=== PATIENT | male | born 1990 | race Caucasian/White ===

== ENCOUNTER 2023-10-08 13:45 | Outpatient (OUT) | payer OTHER, SELFPAY ==
[2023-10-08 14:22] LABS: Basophils Absolute Auto 0.1 10^3/uL (0.0-0.1); Basophils Percent Auto 1.3 % (0.2-2.0); Eosinophils Absolute Auto 0.2 10^3/uL (0.0-0.7); Eosinophils Percent Auto 2.7 % (0.9-7.0); Hematocrit 48.4 % (42.0-54.0); Hemoglobin 16.2 g/dL (14.0-18.0); Immature Granulocytes Abs Auto 0.13 10^3/uL (0.00-0.03); Immature Granulocytes Pct Auto 1.7 % (0.0-0.5); Lymphocytes Absolute Auto 2.3 10^3/uL (1.2-3.8); Lymphocytes Percent Auto 29.4 % (20.5-60.0); Mean Corpuscular HGB Conc 33.5 g/dL (29.9-35.2); Mean Corpuscular Hemoglobin 28.7 pg (25.9-34.0); Mean Corpuscular Volume 85.8 fL (80.0-94.0); Mean Platelet Volume 12.3 fL (9.5-13.5); Monocytes Absolute Auto 0.6 10^3/uL (0.3-0.8); Monocytes Percent Auto 8.1 % (1.7-12.0); Neutrophils Absolute Auto 4.4 10^3/uL (1.4-6.5); Neutrophils Percent Auto 56.8 % (43.0-75.0); Platelet Count 146 10^3/uL (150-450); Red Blood Count 5.64 10^6/uL (4.70-6.10); White Blood Count 7.7 10^3/uL (4.0-11.0)
[2023-10-08 14:48] LABS: Estimated Average Glucose 255 mg/dL; Glycohemoglobin A1C 10.5 % (4.5-6.2)
[2023-10-08 14:51] LABS: Anion Gap 11.8; Carbon Dioxide 28.1 mmol/L (21.0-32.0); Chloride 104 mmol/L (98-107); Potassium 3.9 mmol/L (3.5-5.1); Sodium 140 mmol/L (136-145)
[2023-10-08 14:52] LABS: Alanine Aminotransferase 83 U/L (16-63); Albumin Globulin Ratio 1.1; Albumin Level 3.7 g/dL (3.4-5.0); Alkaline Phosphatase 136 U/L (46-116); Aspartate Amino Transferase 21 U/L (15-37); BUN Creatinine Ratio 11.9; Bilirubin Total 0.5 mg/dL (0.2-1.0); Calcium 8.8 mg/dL (8.5-10.1); Cholesterol 148 mg/dL (<=200); Estimated GFR (African America >60 (>=60); Estimated GFR (Non-African Ame >60 (>=60); Globulin 3.5 g/dL; Glucose 283 mg/dL (74-106); HDL Cholesterol 29 mg/dL (40-60); Total Protein 7.2 g/dL (6.4-8.2); Triglycerides 377 mg/dL (<=150); VLDL CHOLESTEROL 75.4 mg/dL
[2023-10-08 14:53] LABS: Chol HDL Ratio 5.1; Thyroid Stimulating Hormone 2.456 uIU/mL (0.358-3.740)
== END 2023-10-08 13:46 | disposition home or self-care (01) ==
LOC: LAB 13:51
PROVIDERS: PCP Family Medicine; Visit Provider Family Medicine
DX: E11.65 Type 2 diabetes mellitus with hyperglycemia (principal)
CPT/HCPCS: 36415; 80053; 80061; 83036; 84443; 85025

== ENCOUNTER 2023-12-27 12:10 | Emergency (ER) | payer OTHER, SELFPAY ==
[2023-12-27 12:17] VITALS: BP 133/92; PULSE 96; TEMP 36.9; O2SAT 97; BMI 32.7
--- NOTE | 2023-12-27 12:35 | XR_ITS ---
The [address] [address] Patient Name: CHARO SHUKLA MRN: [id number] date: 1990 Sex: M Assigned Patient Location: ER Current Patient Location: ED.MAIN Accession/Order Number: [id number] Exam Date: 12/27/2023 12:28 Report Date: 12/27/2023 12:51 At the request of: GILLES MILLAN Procedure: XR hand LT min 3V PROCEDURE: XR hand LT min 3V HISTORY: injury left hand attn. to left ring finger COMPARISON: None. FINDINGS: BONES:No fracture, acute abnormality, or significant arthropathy. SOFT TISSUES:No visible soft tissue swelling. EFFUSION:None visible. OTHER: Negative. XR/XR hand LT min 3V IMPRESSION: 1. No acute bone abnormality. Electronically authenticated by: CHARO JAMES Date: 12/27/2023 12:51
--- NOTE | 2023-12-27 12:45 | ED.UPPEXIN1 ---
HPI HPI - Extremity Injury (Upper) General Chief Complaint: Extremity Injury, Upper Stated Complaint: UPPER EXTREMITY INJURY Time Seen by Provider: 12/27/23 12:45 Source: patient Mode of arrival: walk-in Limitations: no limitations History of Present Illness HPI narrative: Patient here is swelling to the distal phalanx of his left ring finger. He was at home he closed the car door on accidentally. There is no open wound but there is swelling. X-rays were ordered by the nursing staff Related Data Allergies Allergy/AdvReac Type Severity Reaction Status Date / Time amoxicillin [From Augmentin] Allergy Severe Hives Verified 12/27/23 12:16 clavulanic acid Allergy Severe Hives Verified 12/27/23 12:16 [From Augmentin] codeine Allergy Severe Anaphylaxis Verified 12/27/23 12:15 prednisolone [From Prelone] Allergy Severe Hives Verified 12/27/23 12:15 Opioid HPI Opioid Management Most Recent Pain and Opioid Data: No Data to Display Exam Narrative Exam Narrative: Awake alert vital signs are noted. He has no open laceration. There is a small amount of blood underneath the nail but not worthy of trephination. Modest soft tissue swelling is noted. Range of motion is complete there is no rotational deformity. Rest the hand the wrist is normal. Constitutional Vital Signs, click to edit/add: Last Vital Signs Temp 98.5 F 12/27/23 12:17 Pulse 96 H 12/27/23 12:17 Resp 20 12/27/23 12:17 BP 133/92 H 12/27/23 12:17 Pulse Ox 97 12/27/23 12:17 O2 Del Method Room Air 12/27/23 12:17 Course Vital Signs Vital signs: Vital Signs Temperature 98.5 F 12/27/23 12:17 Pulse Rate 96 H 12/27/23 12:17 Respiratory Rate 20 12/27/23 12:17 Blood Pressure 133/92 H 12/27/23 12:17 Pulse Oximetry 97 12/27/23 12:17 Oxygen Delivery Method Room Air 12/27/23 12:17 Temperature 98.5 F 12/27/23 12:17 Pulse Rate 96 H 12/27/23 12:17 Respiratory Rate 20 12/27/23 12:17 Blood Pressure 133/92 H 12/27/23 12:17 Pulse Oximetry 97 12/27/23 12:17 Oxygen Delivery Method Room Air 12/27/23 12:17 MDM - Extremity Injury (Upper) MDM Narrative Medical decision making narrative: X-rays were done by primary review shows no acute fracture. We will place him in a protective splint ice and elevation were advised Discharge Plan Discharge Stand Alone Forms: Portal Instructions Chief Complaint: Extremity Injury, Upper Clinical Impression: Contusion of hand, left Patient Disposition: Home, Self-Care Time of Disposition Decision: 12:47 Print Language: Sammarinese Additional Instructions: Ice/Tylenol/splint Referrals: Suzette Umaña MD [Primary Care Provider] - 1 week
--- OUTSIDE RECORDS SUMMARY | 2023-12-27 12:47 | XMS_ITS | CCD ---
Author Organization [facility] Care Team Providers Care Radio Operator Name Role Phone DR CHRISTINE WHITE Primary Care Unavailable SÁNCHEZ, DR OSCAR Philip Consulting Unavailable SÁNCHEZ, DR OSCAR Philip Admitting Unavailable SÁNCHEZ, DR OSCAR Philip Attending Unavailable TEDDY HATCH Consulting Unavailable CHRISTOPHER, DR CHRISTINE Garcia Primary Care Unavailable BRISA PATINO Admitting Unavailable BRISA PATINO Attending Unavailable BENY .EVIN Consulting UnavailNAT Ta Consulting Unavailable CHRISTOPHER, DR CHRISTINE Garcia Primary Care Unavailable MONTSE HDZ Admitting Unavailable MONTSE HDZ Attending Unavailable Warren Puente Consulting Unavailable TICO .MONTSE Consulting Unavailable Christine White Unavailable Allergies Allergy Classification Reported Allergen(s) Allergy Type Date of Onset Reaction(s) Facility Clavulanate (1 source) Clavulanate Drug Allergy 12-26-19 24 [facility] Opioid Agonists (1 source) Codeine Drug Allergy 12-26-19 24 [facility] Penicillins (antibiotic) (1 source) Amoxicillin Drug Allergy 12-26-19 24 [facility] (6 sources) Amoxicillin / Clavulanate Drug Allergy 01-22-20 [address] [facility] (1 source) cefTRIAXone Drug Allergy 03-29-[address] [facility] (1 source) Codeine Drug Allergy 01-22-20 [address] [facility] (1 source) Isopropyl Alcohol Drug Allergy 01-22-[address] [facility] (1 source) prednisoLONE Drug Allergy 09-18-[address] [facility] (4 sources) Amoxicillin / Clavulanate Drug Allergy Unknown [facility] Other (9 sources) Codeine Drug Allergy Unknown [facility] Other (8 sources) prednisoLONE Drug Allergy Unknown [facility] Other (1 source) Allergies Reconciled Propensity to adverse reactions Unknown [facility] Other (3 sources) Prelone *CORTICOSTEROIDS * Propensity to adverse reactions 10-08-19 24 Unknown, [facility] (1 source) patient allergy list reviewed by nurse or physicia Propensity to adverse reactions 03-11-20 Comment:Done [facility] Other Medications Current Medications Medication Drug Class(es) Dates Sig (Normalized) Sig (Original) 0.25 MG, 0.5 MG Dose 3 ML semaglutide 0.68 MG/ML Pen Injector [Ozempic] (1 source) inject 0.5 mg by subcutaneous injection every week Ozempic (0.25 or 0.5 MG/DOSE) 2 MG/3ML 0.5mg Subcutaneous weekly for 28 days Active Albuterol (1 source) beta2-Adrenergic Agonist Start: 11-27-2023 take 1 puff(s) by inhalation every four to six hours Albuterol Sulfate Active 2 PUFF INHALATION EVERY 4-6 HOURS 6.7 November 27, 2023 12:00am Azithromycin (1 source) Macrolide Antimicrobial Start: 12-26-2023 Azithromycin Active 0 PO .COMPLEX December 26, 2023 12:00am For 250 mg dose pack: take 500 mg today (day 1), then 250 mg for 4 days (days 2-5) PO empagliflozin 10 mg oral tablet (3 sources) Sodium-Glucose Cotransporter 2 Inhibitor Start: 11-19-2023 End: 12-16-2023 take 1 tablet by mouth once daily Empagliflozin (Jardiance) 10 mg tablet Active 0 .ROUTE .COMPLEX December 16, 2023 3:11pm TAKE 1 TABLET BY MOUTH EVERY DAY Start: 10-23-2023 End: 11-19-2023 take 1 tablet by mouth once daily Empagliflozin (Jardiance) 10 mg tablet Discontinued 10 MG PO Daily October 23, 2023 12:00am November 19, 2023 4:35pm Flash Glucose Scanning [place] (Freestyle Batsheva 2 [place]) misc (1 source) Start: 10-09-2023 Flash Glucose Scanning [place] (Freestyle Batsheva 2 [place]) misc Active 0 .Route 1 October 09, 2023 12:00am As directed Flash Glucose Sensor (Freestyle Batsheva 2 Sensor) kit (1 source) Start: 10-09-2023 Flash Glucose Sensor (Freestyle Batsheva 2 Sensor) kit Active 0 .Route 1 October 09, 2023 12:00am As directed FLUoxetine 20 mg oral capsule (4 sources) Serotonin Reuptake Inhibitor take 1 capsule by mouth every twenty-four hours FLUoxetine HCl 20 MG 1 capsule Orally Once a day Active take 1 capsule by mouth once alanna ly FLUoxetine HCl 20 MG 1 capsule Orally Once a day Active glipiZIDE er 10 mg 24 hr extended release oral tablet (12 sources) Sulfonylurea Start: 10-08-2023 End: 12-03-2023 take 10 mg by mouth once daily Glipizide Active 10 MG PO Daily December 03, 2023 9:45am Start: 09-14-2022 take 1 tablet by amisha th every twenty-four hours glipiZIDE XL 5 MG 1 tablet with food Orally Once a day for 30 day(s) Aug, Active take 1 tablet by amisha th once daily at mealtime glipiZIDE ER 10 MG TAKE 1 TABLET BY MOUTH EVERY DAY WITH FOOD for 90 days Active pioglitazone 30 mg oral tablet (4 sources) Peroxisome Proliferator Receptor alpha Agonist, Peroxisome Proliferator Receptor gamma Agonist, Thiazolidinedione Start: 01-14-2023 take 1 tablet by mouth every twenty-four hours Actos 30 MG 1 tablet Orally Once a day for 30 days Dec, Active take 1 tablet by amisha th every twenty-four hours Pioglitazone HCl 45 MG 1 tablet Orally Once a day for 90 days Active Completed/Discontinued Medications Medication Drug Class(es) Dates Sig (Normalized) Sig (Original) lisinopril 10 mg oral tablet (8 sources) Angiotensin Converting Enzyme Inhibitor take 1 tablet by mouth every twenty-four hours Lisinopril 10 MG 1 tablet Orally Once a day Not-Taking metFORMIN hydrochloride 1000 mg oral tablet (8 sources) Biguanide take 1 tablet by mouth every twelve hours metFORMIN HCl 1000 MG 1 tablet with a meal Orally twice a day Not-Taking Semaglutide (2 sources) Start: 10-09-2023 End: 12-26-2023 Semaglutide (Ozempic) 0.25 mg or 0.5 mg (2 mg/3 mL) pen injector Discontinued 0.25 MG SUBCUT every week 3 October 09, 2023 12:00am December 26, 2023 10:42am for 4 weeks Start: 10-08-2023 End: 10-08-2023 inject 0.5 mg by subcutaneous injection every week Semaglutide (Ozempic) 0.25 mg or 0.5 mg (2 mg/3 mL) pen injector Discontinued MG SUBCUT October 08, 2023 12:00am October 08, 2023 1:14pm FreeTextSi.5mg Subcutaneous weekly; Note: Source Status: Start; Refills: 2; Provider: Christopher Garcia tiZANidine 2 mg oral tablet (8 sources) Central alpha-2 Adrenergic Agonist take 1 tablet by mouth every eight hours tiZANidine HCl 2 MG 1 tablet as needed Orally Three times a day Not-Taking 24 hr venlafaxine 75 mg extended release oral capsule (6 sources) Serotonin and Norepinephrine Reuptake Inhibitor Start: 10-08-19 End: 10-08-19 take 1 capsule by mouth once daily at mealtime Venlafaxine Discontinued 1 CAP PO Daily October 08, 2023 12:00am October 08, 2023 1:14pm FreeTextSi capsule with food Orally Once a day; Note: Source Status: Taking; Provider: Christopher Garcia Start: 01-14-2023 take 1 capsule by mo cox monett every twenty-four hours Venlafaxine HCl ER 75 MG 1 capsule with food Orally Once a day for 30 days Dec, Active Problems Active Problems Problem Classification Problem Date Documented Da te Episodic/Chronic Acute bronchitis (10 sources) Acute bronchitis with bronchospasm; Translations: [Acute bronchitis, unspecified] Episodic Asthma (13 sources) Unspecified asthma, uncomplicated; Translations: [Exacerbation of asthma] Onset: 11-03-2014 Chronic Diabetes mellitus with complications (16 sources) Type 2 diabetes mellitus; Translations: [Type 2 diabetes mellitus with hyperglycemia] Chronic Diabetes mellitus without complication (1 source) Hyperglycemia, unspecified; Translations: [HYPERGLYCEMIA UNSPECIFIED] Onset: 09-17-2022 Episodic Esophageal disorders (1 source) Esophageal reflux finding; Translations: [Esophageal reflux] Onset: 03-09-2016 Chronic Essential hypertension (11 sources) Essential (primary) hypertension; Translations: [Essential hypertension] Onset: 09-17-2022 Chronic Headache; including migraine (4 sources) Headache; including migraine; Translations: [HEADACHE UNSPECIFIED] Onset: 09-18-2021 Immunizations and screening for infectious disease (1 source) Vaccination given; Translations: [Encounter for immunization] Episodic Miscellaneous mental health disorders (1 source) Other symptoms and signs involving emotional state Episodic Mood disorders (1 source) Depression; Translations: [Depression, unspecified] Chronic Noninfectious gastroenteritis (1 source) Noninfective gastroenteritis and colitis, unspecified Episodic Nonspecific chest pain (6 sources) Chest pain, unspecified; Translations: [Other chest pain] Onset: 09-13-2022 Episodic Other aftercare (1 source) Other intermediate (current) drug therapy; Translations: [OTH ALF CURRENT DRUG THERAPY] Onset: 09-17-2022 Episodic Other connective tissue disease (10 sources) Pain in left foot; Translations: [Pain in left foot] Episodic Other ear and sense organ disorders (2 sources) Otitis externa; Translations: [Unspecified otitis externa, bilateral] Onset: 02-15-2015 Chronic Other ear and sense organ disorders (11 sources) Impacted cerumen; Translations: [Impacted cerumen, bilateral] Onset: 03-11-2019 Episodic Other gastrointestinal disorders (9 sources) Epigastric fullness; Translations: [Epigastric swelling, mass or lump] Episodic Other gastrointestinal disorders (1 source) Epigastric mass; Translations: [Epigastric swelling, mass or lump] Episodic Other lower respiratory disease (1 source) Chest pain on breathing Episodic Other non-traumatic joint disorders (1 source) Pain in wrist; Translations: [Pain in left wrist] Episodic Other nutritional; endocrine; and metabolic disorders (1 source) Simple obesity ; Translations: [Other obesity due to excess calories] Onset: 10-01-2016 Chronic Other nutritional; endocrine; and metabolic disorders (1 source) Morbid obesity; Translations: [Morbid (severe) obesity due to excess calories] Onset: 10-01-2016 Chronic Other nutritional; endocrine; and metabolic disorders (2 sources) Obese class II; Translations: [Body mass index 35.0-35.9, adult] Onset: 10-01-2016 Chronic Other nutritional; endocrine; and metabolic disorders (1 source) Body mass index 30+ - obesity; Translations: [Body mass index 36.0-36.9, adult] Onset: 10-01-2016 Chronic Other nutritional; endocrine; and metabolic disorders (1 source) Obese class I; Translations: [Body mass index 32.0-32.9, adult] Onset: 10-01-2016 Chronic Spondylosis; intervertebral disc disorders; other back problems (11 sources) Muscle spasm of thoracic back; Translations: [Muscle spasm of back] Onset: 05-12-2015 Episodic Sprains and strains (1 source) Strain of back muscle; Translations: [Sprain of unspecified parts of thorax, initial encounter] Episodic Unclassified (2 sources) COUGH, UNSPECIFIED; Translations: [COUGH, UNSPECIFIED] Onset: 05-14-2022 Viral infection (2 sources) COVID-19; Translations: [Disease caused by 2019-nCoV] Onset: 05-14-2022 Past or Other Problems Problem Classification Problem Date Documented Date Episodic/Chronic Abdominal pain (1 source) Right upper quadrant pain; Translations: [Right upper quadrant pain] Onset: 03-09-2016 Episodic Bacterial infection; unspecified site (1 source) Bacterial infectious disease; Translations: [Bacterial infection, unspecified, in conditions classified elsewhere and of unspecified site] Onset: 03-11-2019 Episodic Conditions associated with dizziness or vertigo (1 source) Dizziness and giddiness; Translations: [Dizziness and giddiness] Onset: 11-21-2015 Episodic Fever of unknown origin (1 source) Fever, unspecified; Translations: [FEVER UNSPECIFIED] Onset: 05-14-2022 Episodic Intracranial injury (1 source) Concussion with less than 1 hour loss of consciousness; Translations: [Concussion with loss of consciousness of 30 minutes or less, initial encounter] Onset: 11-21-2015 Episodic Malaise and fatigue (1 source) Asthenia; Translations: [Weakness] Onset: 02-21-2018 Episodic Other connective tissue disease (1 source) Pain in limb; Translations: [Pain in left finger(s)] Onset: 09-25-2017 Episodic Other connective tissue disease (1 source) Neuralgia; Translations: [Neuralgia and neuritis, unspecified] Onset: 02-21-2018 Episodic Other connective tissue disease (1 source) Achilles bursitis; Translations: [Achilles bursitis or tendinitis] Onset: 03-11-2019 Episodic Other connective tissue disease (1 source) Lateral epicondylitis; Translations: [Lateral epicondylitis of elbow] Onset: 05-12-2015 Episodic Other nervous system disorders (1 source) Tremor; Translations: [Tremor, unspecified] Onset: 02-21-2018 Episodic Other non-traumatic joint disorders (1 source) Arthralgia of the ankle and/or foot; Translations: [Pain in joint, ankle and foot] Onset: 07-07-2015 Episodic Other upper respiratory disease (1 source) Epistaxis; Translations: [EPISTAXIS] Onset: 09-20-2021 Episodic Other upper respiratory infections (1 source) Acute maxillary sinusitis; Translations: [Acute recurrent maxillary sinusitis] Onset: 12-11-2016 Episodic Skin and subcutaneous tissue infections (1 source) Bockhart impetigo; Translations: [Bockhart's impetigo] Onset: 10-01-2016 Episodic Unclassified (1 source) COUGH, UNSPECIFIED; Translations: [COUGH, UNSPECIFIED] Onset: 05-12-2022 Unclassified (1 source) Exposure to hazardous metal; Translations: [Contact with and (suspected) exposure to other hazardous metals] Onset: 11-26-2016 Results Test Name Value Interpretation Reference Range Facility Basophils Auto (Bld) [#/Vol] on 10-08-2023 Basophils (Bld) [#/Vol] 0.1 10 3/uL 0.0-0.1 [facility] Basophils/100 WBC Auto (Bld) on 10-08-2023 Basophils/100 WBC (Bld) 1.3 % 0.2-2.0 [facility] Cholesterol in LDL Calc [Mas s/Vol]on 10-08-2023 Cholesterol in LDL [Mass/Vol] 44.0 mg/dL [facility] Comment on above: <100 mg/dl [id number] 0-129 mg/dl NEAR OR ABOVE [id number] mg/dl BORDERLINE [id number] mg/dl HIGH>190 mg/dl VERY HIGH Cholesterol in VLDL Calc [Ma ss/Vol]on 10-08-2023 Cholesterol in VLDL [Mass/Vol] 75.4 mg/dL [facility] Eosinophils/100 WBC Auto (Bl d)on 10-08-2023 Eosinophils/100 WBC (Bld) 2.7 % 0.9-7.0 [facility] Erythrocyte distribution wid th Auto (RBC) [Ratio]on 10-08-2023 Erythrocyte distribution width (RBC) [Ratio] 12.0 % 11.0-15.0 [facility] Estimated glomerular filtrat ion rate (GFR) non- Americanon 10-08-2023 GFR/1.73 sq M.predicted among non-blacks MDRD (S/P/Bld) [Vol rate/Area] mL/min/{1.73_m2} >=60 [facility] Globulin Calc (S) [Mass/Vol] on 10-08-2023 Globulin (S) [Mass/Vol] 3.5 g/dL [facility] Glucose mean value [Mass/vol ume] in Blood Estimated from glycated hemoglobinon 10-08-2023 Average glucose Estimated from glycated hemoglobin (Bld) [Mass/Vol] 255 mg/dL [facility] Hematocrit Auto (Bld) [Volum e fraction]on 10-08-2023 Hematocrit (Bld) [Volume fraction] 48.4 % 42.0-54.0 [facility] Hemoglobin [Mass/volume] in Bloodon 10-08-2023 Hemoglobin (Bld) [Mass/Vol] 16.2 g/dL 14.0-18.0 [facility] Laboratory - Chemistry and C hemistry - challengeon 10-08-2023 Albumin [Mass/Vol] 3.7 g/dL 3.4-5.0 [facility] ALP [Catalytic activity/Vol] 136 U/L 46-116 [facility] ALT [Catalytic activity/Vol] 83 U/L 16-63 [facility] AST [Catalytic activity/Vol] 21 U/L 15-37 [facility] Bilirubin [Mass/Vol] 0.5 mg/dL 0.2-1.0 [facility] Calcium [Mass/Vol] 8.8 mg/dL 8.5-10.1 [facility] Chloride [Moles/Vol] 104 mmol/L 98-107 [facility] Cholesterol [Mass/Vol] 148 mg/dL <=200 [facility] Cholesterol in HDL [Mass/Vol] 29 mg/dL 40-60 [facility] Comment on above: > or =60 mg/dl - LOW CARDIOVASCULAR RISK<40 mg/dl - HIGH CARDIOVASCULAR RISK CO2 [Moles/Vol] 28.1 mmol/L 21.0-32.0 [facility] Creatinine [Mass/Vol] 0.67 mg/dL 0.70-1.30 [facility] GFR/1.73 sq M.predicted MDRD (S/P/Bld) [Vol rate/Area] mL/min/{1.73_m2} >=60 [facility] Glucose [Mass/Vol] 283 mg/dL 74-106 [facility] Potassium [Moles/Vol] 3.9 mmol/L 3.5-5.1 [facility] Protein [Mass/Vol] 7.2 g/dL 6.4-8.2 [facility] Sodium [Moles/Vol] 140 mmol/L 136-145 [facility] Triglyceride [Mass/Vol] 377 mg/dL <=150 [facility] TSH Qn 2.456 m[IU]/L 0.358-3.740 [facility] Urea nitrogen [Mass/Vol] 8.0 mg/dL 7.0-18.0 [facility] Urea nitrogen/Creatinine [Mass ratio] 11.9 mg/mg [facility] Laboratory - Hematology and Cell countson 10-08-2023 HbA1c (Bld) [Mass fraction] 10.5 % 4.5-6.2 [facility] Comment on above: ADA RECOMMENDED LIMI T 4.0 - 6.0ADA THERAPEUTIC TARGET < 7.0ACTION SUGGESTED> 7.0 Immature granulocytes/100 WBC (Bld) 1.7 % 0.0-0.5 [facility] Leukocytes [#/volume] correc desean for nucleated erythrocytes in Blood by Automated counon 10-08-2023 WBC corrected for nucl RBC Auto (Bld) [#/Vol] 7.7 10 3/uL 4.0-11.0 [facility] Lymphocytes Auto (Bld) [#/Vo l]on 10-08-2023 Lymphocytes (Bld) [#/Vol] 2.3 10 3/uL 1.2-3.8 [facility] Lymphocytes/100 WBC Auto (Bl d)on 10-08-2023 Lymphocytes/100 WBC (Bld) 29.4 % 20.5-60.0 [facility] MCH Auto (RBC) [Entitic mass ]on 10-08-2023 MCH (RBC) [Entitic mass] 28.7 pg 25.9-34.0 [facility] MCHC Auto (RBC) [Mass/Vol]on 10-08-2023 MCHC (RBC) [Mass/Vol] 33.5 g/dL 29.9-35.2 [facility] MCV Auto (RBC) [Entitic vol] on 10-08-2023 MCV (RBC) [Entitic vol] 85.8 fL 80.0-94.0 [facility] Monocytes Auto (Bld) [#/Vol] on 10-08-2023 Monocytes (Bld) [#/Vol] 0.6 10 3/uL 0.3-0.8 [facility] Monocytes/100 WBC Auto (Bld) on 10-08-2023 Monocytes/100 WBC (Bld) 8.1 % 1.7-12.0 [facility] Neutrophils Auto (Bld) [#/Vo l]on 10-08-2023 Neutrophils (Bld) [#/Vol] 4.4 10 3/uL 1.4-6.5 [facility] Neutrophils/100 WBC Auto (Bl d)on 10-08-2023 Neutrophils/100 WBC (Bld) 56.8 % 43.0-75.0 [facility] No Panel Informationon 10-07 Eosinophils # (Auto) 0.2 10 3/uL 0.0-0.7 [facility] Immature Granulocyte # (Auto) 0.13 10 3/uL 0.00-0.03 [facility] Platelet mean volume Auto (B ld) [Entitic vol]on 10-08-2023 Platelet mean volume (Bld) [Entitic vol] 12.3 fL 9.5-13.5 [facility] Platelets Auto (Bld) [#/Vol] on 10-08-2023 Platelets (Bld) [#/Vol] 146 10 3/uL 150-450 [facility] RBC Auto (Bld) [#/Vol]on RBC (Bld) [#/Vol] 5.64 10 6/uL 4.70-6.10 [facility] Serum or plasma albumin/glob ulin mass ratioon 10-08-2023 Albumin/Globulin [Mass ratio] 1.1 {ratio} [facility] Serum or plasma anion gap de terminationon 10-08-2023 Anion gap [Moles/Vol] 11.8 mmol/L [facility] Serum or plasma total choles terol/high density lipoprotein (HDL) cholesterol mass amy 10-08-2023 Cholesterol.total/C holesterol in HDL [Mass ratio] 5.1 {ratio} [facility] Comment on above: 3.3 - 4.4 LOW RISK4. 4 - 7.1 AVERAGE RISK7.1 - 11.0 MODERATE RISK>11.0 HIGH RISK BNPon 09-13-2022 Natriuretic peptide B (Bld) [Mass/Vol] 16.0 pg/mL Normal <=450.[address] [facility] Comment on above: Performed By: #### B COMMODITY ANALYST, CMP, CMADM #### [facility] [address] [place] [address] Dr. Estrella Cazares CARDIAC OSCAR ADMITon 023 CK [Catalytic activity/Vol] 64 U/L Normal 39-308 [facility] Comment on above: Performed By: #### B COMMODITY ANALYST, CMP, CMADM #### [facility] [address] [place] [address] Dr. Estrella Cazares CK.MB [Mass/Vol] ng/mL Normal <=3.60 [facility] Comment on above: Performed By: #### B COMMODITY ANALYST, CMP, CMADM #### [facility] [address] [place] [address] Dr. Estrella Cazares HSTROP <4.0 Normal 4.0-76.1 [facility] Comment on above: Result Comment: CUT- OFF POINTS HAVE BEEN ESTABLISHED BASED ON THE FOURTH UNIVERSAL DEFINITIONS OF MYOCARDIAL INFARCTION. THE UPPER REFERENCE LIMIT (URL) OF TROPONIN, DEFINED THE 99TH PERCENTILE OF cTnI DISTRIBUTION IN A REFERENCE POPULATION, HAS BEEN CONFIRMED THE DECISION THRESHOLD FOR AR DIAGNOSIS. Performed By: #### B COMMODITY ANALYST, CMP, CMADM #### [facility] [address] [place] [address] Dr. Estrella Cazares DAVID 27 ng/mL Normal 16-[address] [facility] Comment on above: Performed By: #### B COMMODITY ANALYST, CMP, CMADM #### [facility] [address] [place] [address] Dr. Estrella Cazares CBC AUTO DIFFon 09-13-2022 BASO # 0.1 103/ul Normal 0.0-0.1 [facility] Comment on above: Performed By: #### P T, PTT #### [facility] [address] [place] [address] Dr. Estrella Cazares Basophils/100 WBC (Bld) 0.6 % Normal 0.2-2.[address] [facility] Comment on above: Performed By: #### P T, PTT #### [facility] [address] [place] [address] Dr. Estrella Cazares EO # 0.1 103/ul Normal 0.0-0.7 [facility] Comment on above: Performed By: #### P T, PTT #### [facility] [address] [place] [address] Dr. Estrella Cazaers Eosinophils/100 WBC (Bld) 1.6 % Normal 0.9-7.[address] [facility] Comment on above: Performed By: #### P T, PTT #### [facility] [address] [place] [address] Dr. Estrella Cazares Erythrocyte distribution width (RBC) [Ratio] 12.0 % Normal 11.0-15.[address] [facility] Comment on above: Performed By: #### P T, PTT #### [facility] [address] [place] [address] Dr. Estrella Cazares Hematocrit (Bld) [Volume fraction] 49.8 % Normal 42.0-54.[address] [facility] Comment on above: Performed By: #### P T, PTT #### [facility] [address] [place] [address] Dr. Estrella Cazares Hemoglobin (Bld) [Mass/Vol] 16.9 g/dL Normal 14.0-18.[address] [facility] Comment on above: Performed By: #### P T, PTT #### [facility] [address] [address] [address] Estrella Cazares IG # 0.05 10e3/ul Critically high 0.00-0.03 [facility] Comment on above: Performed By: #### P T, PTT #### [facility] [address] [place] [address] Dr. Estrella Cazares IG % 0.6 % Critically high 0.0-0.5 [facility] Comment on above: Performed By: #### P T, PTT #### [facility] [address] [place] [address] Dr. Estrella Cazares LYMPH # 2.0 103/ul Normal 1.2-3.8 [facility] Comment on above: Performed By: #### P T, PTT #### [facility] [address] [place] [address] Dr. Estrella Cazares Lymphocytes/100 WBC (Bld) 22.7 % Normal 20.5-60.0 [facility] Comment on above: Performed By: #### P T, PTT #### [facility] [address] [place] [address] Dr. Estrella Cazares MANUAL DIFF REQ NO Normal [facility] Comment on above: Performed By: #### P T, PTT #### [facility] [address] [place] [address] Dr. Estrella Cazares MCH (RBC) [Entitic mass] 28.2 pg Normal 25.9-34.0 [facility] Comment on above: Performed By: #### P T, PTT #### [facility] [address] [place] [address] Dr. Estrella Cazares MCHC (RBC) [Mass/Vol] 33.9 g/dL Normal 29.9-35.2 [facility] Comment on above: Performed By: #### P T, PTT #### [facility] [address] [place] [address] Dr. Estrella Cazares MCV (RBC) [Entitic vol] 83.1 fL Normal 80.0-94.0 [facility] Comment on above: Performed By: #### P T, PTT #### [facility] [address] [place] [address] Dr. Estrella Cazares MONO # 0.6 103/ul Normal 0.3-0.8 [facility] Comment on above: Performed By: #### P T, PTT #### [facility] [address] [place] [address] Dr. Estrella Cazares Monocytes/100 WBC (Bld) 6.7 % Normal 1.7-12.0 [facility] Comment on above: Performed By: #### P T, PTT #### [facility] [address] [place] [address] Dr. Estrella Cazares NEUT # 5.9 103/ul Normal 1.4-6.5 [facility] Comment on above: Performed By: #### P T, PTT #### [facility] [address] [place] [address] Dr. Estrella Cazares Neutrophils/100 WBC (Bld) 67.8 % Normal 43.0-75.0 [facility] Comment on above: Performed By: #### P T, PTT #### [facility] [address] [place] [address] Dr. Estrella Cazares Platelet mean volume (Bld) [Entitic vol] 12.1 fL Normal 9.5-13.5 [facility] Comment on above: Performed By: #### P T, PTT #### [facility] [address] [place] [address] Dr. Estrella Cazares PLT 190 103/ul Normal 150-[address] [facility] Comment on above: Performed By: #### P T, PTT #### [facility] [address] [place] [address] Dr. Estrella Cazares RBC 5.99 106/ul Normal 4.70-6.[address] [facility] Comment on above: Performed By: #### P T, PTT #### [facility] [address] [place] [address] Dr. Estrella Cazares WBC 8.7 103/ul Normal 4.0-11.[address] [facility] Comment on above: Performed By: #### P T, PTT #### [facility] [address] [address] [address] Estrella Cazares D-DIMERon 09-13-2022 D-DIMER 0.19 mg/L FEU Normal <=0.59 [facility] Comment on above: Performed By: #### P T, PTT #### [facility] [address] [place] [address] Dr. Estrella Cazares D-DIMER COMMENTS SEE BELOW Normal [facility] Comment on above: Result Comment: Incr eases in D-Dimer concentration observed with thromboembolic events can be variable due to localization, size, and age of the thrombus. Therefore, a thromboembolic event cannot be diagnosed with certainty on the basis of the reference range. D-Dimers may also be elevated for a variety of disorders including: advanced age, , coronary disease, cancer, liver disease, infection, inflammation, hematoma, DIC, trauma, post-surgery, diabetes, thrombolytic or anticoagulant therapy, stress, and generalized hospitalization. Performed By: #### P T, PTT #### [facility] [address] [place] [address] Dr. Estrella Cazares GLYCOHEMOGLOBIN A1Con 2022 ADA RECOMMENDATION SEE BELOW Normal [facility] Comment on above: Result Comment: ADA RECOMMENDED LIMIT 4.0 - 6.0 ADA THERAPEUTIC TARGET < 7.0 ACTION SUGGESTED > 7.0 Performed By: #### A 1C #### [facility] [address] [place] [address] Dr. Estrella Cazares Glucose [Mass/Vol] 240 mg/dL Normal [facility] Comment on above: Performed By: #### A 1C #### [facility] [address] [place] [address] Dr. Estrella Cazares HbA1c (Bld) [Mass fraction] 10.0 % Critically high 4.5-6.[address] [facility] Comment on above: Performed By: #### A 1C #### [facility] [address] [place] [address] Dr. Estrella Cazares PROF 14(COMP METB)on 023 Albumin [Mass/Vol] 4.0 g/dL Normal 3.4-5.0 [facility] Comment on above: Performed By: #### B COMMODITY ANALYST, CMP, CMADM #### [facility] [address] [address] [address] Estrella Cazares Albumin/Globulin [Mass ratio] 1.4 {ratio} Normal [facility] Comment on above: Performed By: #### B COMMODITY ANALYST, CMP, CMADM #### [facility] [address] [address] [address] Estrella Cazares ALP [Catalytic activity/Vol] 108 U/L Normal 46-116 [facility] Comment on above: Performed By: #### B COMMODITY ANALYST, CMP, CMADM #### [facility] [address] [address] [address] Estrella Cazares ALT [Catalytic activity/Vol] 130 U/L Critically high 16-63 [facility] Comment on above: Performed By: #### B COMMODITY ANALYST, CMP, CMADM #### [facility] [address] [place] [address] Dr. Estrella Cazares Anion gap [Moles/Vol] 12.6 mmol/L Normal [facility] Comment on above: Performed By: #### B COMMODITY ANALYST, CMP, CMADM #### [facility] [address] [place] [address] Dr. Estrella Cazares AST [Catalytic activity/Vol] 57 U/L Critically high 15-37 [facility] Comment on above: Performed By: #### B COMMODITY ANALYST, CMP, CMADM #### [facility] [address] [address] [address] Estrella Cazares Bilirubin [Mass/Vol] 0.6 mg/dL Normal 0.2-1.0 [facility] Comment on above: Performed By: #### B COMMODITY ANALYST, CMP, CMADM #### [facility] [address] [place] [address] Dr. Estrella Cazares Calcium [Mass/Vol] 9.2 mg/dL Normal 8.5-10.1 [facility] Comment on above: Performed By: #### B COMMODITY ANALYST, CMP, CMADM #### [facility] [address] [place] [address] Dr. Estrella Cazares Chloride [Moles/Vol] 103 mmol/L Normal 98-107 [facility] Comment on above: Performed By: #### B COMMODITY ANALYST, CMP, CMADM #### [facility] [address] [address] [address] Estrella Cazares CO2 [Moles/Vol] 27.1 mmol/L Normal 21.0-32.0 [facility] Comment on above: Performed By: #### B COMMODITY ANALYST, CMP, CMADM #### [facility] [address] [address] [address] Estrella Cazares Creatinine [Mass/Vol] 0.64 mg/dL Critically low 0.70-1.30 [facility] Comment on above: Performed By: #### B COMMODITY ANALYST, CMP, CMADM #### [facility] [address] [place] [address] Dr. Estrella Cazares EGFR-AF TAJIK >60 Normal >=60 [facility] Comment on above: Performed By: #### B COMMODITY ANALYST, CMP, CMADM #### [facility] [address] [place] [address] Dr. Estrella Cazares EGFR-NON AF TAJIK >60 Normal >=60 [facility] Comment on above: Performed By: #### B COMMODITY ANALYST, CMP, CMADM #### [facility] [address] [place] [address] Dr. Estrella Cazares Globulin (S) [Mass/Vol] 2.8 g/dL Normal [facility] Comment on above: Performed By: #### B COMMODITY ANALYST, CMP, CMADM #### [facility] [address] [place] [address] Dr. Estrella Cazares Glucose [Mass/Vol] 236 mg/dL Critically high 74-106 [facility] Comment on above: Performed By: #### B COMMODITY ANALYST, CMP, CMADM #### [facility] [address] [place] [address] Dr. Estrella Cazares Potassium [Moles/Vol] 3.7 mmol/L Normal 3.5-5.1 [facility] Comment on above: Performed By: #### B COMMODITY ANALYST, CMP, CMADM #### [facility] [address] [place] [address] Dr. Estrella Cazares Protein [Mass/Vol] 6.8 g/dL Normal 6.4-8.2 [facility] Comment on above: Performed By: #### B COMMODITY ANALYST, CMP, CMADM #### [facility] [address] [place] [address] Dr. Estrella Cazares Sodium [Moles/Vol] 139 mmol/L Normal 136-145 [facility] Comment on above: Performed By: #### B COMMODITY ANALYST, CMP, CMADM #### [facility] [address] [place] [address] Dr. Estrella Cazares Urea nitrogen [Mass/Vol] 6.0 mg/dL Critically low 7.0-18.0 [facility] Comment on above: Performed By: #### B COMMODITY ANALYST, CMP, CMADM #### [facility] [address] [place] [address] Dr. Estrella Cazares Urea nitrogen/Creatinine [Mass ratio] 9.4 mg/mg Normal [facility] Comment on above: Performed By: #### B COMMODITY ANALYST, CMP, CMADM #### [facility] [address] [place] [address] Dr. Estrella Cazares PROTIMEon 09-13-2022 INR Coag (PPP) [Relative time] 1.01 {INR} Normal [facility] Comment on above: Performed By: #### P T, PTT #### [facility] [address] [place] [address] Dr. Estrella Cazares INR GUIDELINES SEE BELOW Normal [facility] Comment on above: Result Comment: VANDA RED INR: 2.0 - 3.0 CONDITIONS NOT LISTED BELOW 2.5 - 3.5 FOR PROSTHETIC HEART VALVE REPLACEMENT 2.5 - 3.5 RECURRENT THROMBOSIS Performed By: #### P T, PTT #### [facility] [address] [place] [address] Dr. Estrella Cazares PT Coag (PPP) [Time] 10.7 s Normal 9.0-11.6 [facility] Comment on above: Performed By: #### P T, PTT #### [facility] [address] [place] [address] Dr. Estrella Cazares PTTon 09-13-2022 aPTT Coag (Bld) [Time] 29.3 s Normal 22.3-36.[address] [facility] Comment on above: Performed By: #### P T, PTT #### [facility] [address] [address] [address] Estrella Cazares TROPONIN, HIGH SENSITIVITYon 09-13-2022 HSTROP <4.0 Normal 4.0-76.[address] [facility] Comment on above: Result Comment: CUT- OFF POINTS HAVE BEEN ESTABLISHED BASED ON THE FOURTH UNIVERSAL DEFINITIONS OF MYOCARDIAL INFARCTION. THE UPPER REFERENCE LIMIT (URL) OF TROPONIN, DEFINED THE 99TH PERCENTILE OF cTnI DISTRIBUTION IN A REFERENCE POPULATION, HAS BEEN CONFIRMED THE DECISION THRESHOLD FOR AR DIAGNOSIS. Performed By: #### P T, PTT #### [facility] [address] [address] [address] Estrella Cazares XR CHEST 1 Von 09-13-2022 XR CHEST 1 V EXAM: Chest x-ray HISTORY: . CHEST PAIN, UNSPECIFIED . COMPARISON: 05/11/2022 TECHNIQUE: Single view of the chest FINDINGS: Heart and vascularity are unremarkable. Lungs are expanded and free of focal infiltrates. EKG leads overlie the chest. IMPRESSION: No acute heart or lung disease identified. Electronically authenticated by: WARREN PUENTE Date: 2022-09-13 17:19 Normal [facility] Covid-19 PCR (CVDTBH)on 04-28 SARS-CoV-2 (COVID-19) RNA ANIVAL+probe Ql (Unsp spec) Detected Critically abnormal NOT DETECTED [facility] Comment on above: Result Comment: This test is not yet approved or cleared by the [place] FDA. When there are no FDA-approved or cleared tests available, and other criteria are met, FDA can make tests available under an emergency access mechanism called an Emergency Use Authorization (EUA). The EUA for this test is supported by the [employer] of Health and Human Service's declaration that circumstances exist to justify the emergency use of in vitro diagnostics for the detection and/or diagnosis of the virus that causes COVID-19. This EUA will remain in effect for the duration of the COVID-19 declaration justifying emergency of IVDs, unless it is terminated or revoked by the FDA (after which the test may no longer be used). Performed By: #### C VDTBH #### [facility] [address] [address] [address] Estrella Cazares XR CHEST 1 Von 05-12-2022 XR CHEST 1 V EXAM: XR CHEST 1 V HISTORY: COUGH COMPARISON: Chest x-ray 02/21/2021 TECHNIQUE: Single frontal view chest x-ray FINDINGS: No lobar consolidation, large pleural effusions, pneumothorax, or acute bony abnormality. Cardiac size is unremarkable. IMPRESSION: No radiographic evidence for acute chest abnormality. Electronically authenticated by: TEDDY HATCH Date: 2022-05-12 00:32 Normal [facility] CT HEAD WO CONon 09-19-2021 CT HEAD WO CON NONCONTRAST CT SCAN OF THE HEAD CT HEAD WO CON HISTORY: HEADACHE TECHNIQUE: Multiple axial images are taken from the level the vertex down to the base of the skull without the use of IV contrast. Images were then reconstructed in the sagittal and coronal planes. This exam was performed according to our departmental dose-optimization program which includes use of Automated Exposure Control, adjustment of the mA and/or kV according to patient size and/or use of iterative reconstruction technique. COMPARISON: 11/21/2015 FINDINGS: Brain Parenchyma: No intracranial mass. No intracranial hemorrhage. Yoon-white matter within expected limits of normal for patient's age. Posterior fossa: Normal. Midline shift: None Extra-axial fluid collection: Extra-axial mass is seen in the region of the left frontal space and measures 6 mm x 6mm. Ventricles: Normal. Mastoid air cells: Normal. Sinuses: Normal. Cranium: No depressed skull fracture. Soft tissues: Normal. Orbits: Normal. IMPRESSION: 1. Probable calcified right frontal meningioma on axial image [address] evidence for acute intracranial pathology. Electronically authenticated by: NAT THOMPSON Date: 2021-09-18 22:02 Normal [facility] CBC AUTO DIFFon 09-18-2021 BASO # 0.1 103/ul Normal 0.0-0.[address] [facility] Comment on above: Performed By: #### P T, PTT #### [facility] [address] [address] [address] Estrella Cazares Basophils/100 WBC (Bld) 1.1 % Normal 0.2-2.0 [facility] Comment on above: Performed By: #### P T, PTT #### [facility] [address] [place] [address] Dr. Estrella Cazares EO # 0.2 103/ul Normal 0.0-0.[address] [facility] Comment on above: Performed By: #### P T, PTT #### [facility] [address] [place] [address] Dr. Estrella Cazares Eosinophils/100 WBC (Bld) 2.1 % Normal 0.9-7.0 [facility] Comment on above: Performed By: #### P T, PTT #### [facility] [address] [place] [address] Dr. Estrella Cazares Erythrocyte distribution width (RBC) [Ratio] 12.1 % Normal 11.0-15.0 [facility] Comment on above: Performed By: #### P T, PTT #### [facility] [address] [place] [address] Dr. Estrella Cazares Hematocrit (Bld) [Volume fraction] 47.2 % Normal 42.0-54.0 [facility] Comment on above: Performed By: #### P T, PTT #### [facility] [address] [place] [address] Dr. Estrella Cazares Hemoglobin (Bld) [Mass/Vol] 15.6 g/dL Normal 14.0-18.0 [facility] Comment on above: Performed By: #### P T, PTT #### [facility] [address] [place] [address] Dr. Estrella Cazares IG # 0.10 10e3/ul Critically high 0.00-0.03 [facility] Comment on above: Performed By: #### P T, PTT #### [facility] [address] [place] [address] Dr. Estrella Cazares IG % 1.2 % Critically high 0.0-0.5 [facility] Comment on above: Performed By: #### P T, PTT #### [facility] [address] [place] [address] Dr. Estrella Cazares LYMPH # 2.7 103/ul Normal 1.2-3.[address] [facility] Comment on above: Performed By: #### P T, PTT #### [facility] [address] [place] [address] Dr. Estrella Cazares Lymphocytes/100 WBC (Bld) 32.0 % Normal 20.5-60.[address] [facility] Comment on above: Performed By: #### P T, PTT #### [facility] [address] [place] [address] Dr. Estrella Cazares MANUAL DIFF REQ NO Normal [facility] Comment on above: Performed By: #### P T, PTT #### [facility] [address] [place] [address] Dr. Estrella Cazares MCH (RBC) [Entitic mass] 28.2 pg Normal 25.9-34.[address] [facility] Comment on above: Performed By: #### P T, PTT #### [facility] [address] [place] [address] Dr. Estrella Cazares MCHC (RBC) [Mass/Vol] 33.1 g/dL Normal 29.9-35.[address] [facility] Comment on above: Performed By: #### P T, PTT #### [facility] [address] [place] [address] Dr. Estrella Cazares MCV (RBC) [Entitic vol] 85.2 fL Normal 80.0-94.[address] [facility] Comment on above: Performed By: #### P T, PTT #### [facility] [address] [place] [address] Dr. Estrella Cazares MONO # 0.6 103/ul Normal 0.3-0.[address] [facility] Comment on above: Performed By: #### P T, PTT #### [facility] [address] [place] [address] Dr. Estrella Cazares Monocytes/100 WBC (Bld) 6.6 % Normal 1.7-12.[address] [facility] Comment on above: Performed By: #### P T, PTT #### [facility] [address] [place] [address] Dr. Estrella Cazares NEUT # 4.8 103/ul Normal 1.4-6.5 [facility] Comment on above: Performed By: #### P T, PTT #### [facility] [address] [place] [address] Dr. Estrella Cazares Neutrophils/100 WBC (Bld) 57.0 % Normal 43.0-75.0 [facility] Comment on above: Performed By: #### P T, PTT #### [facility] [address] [place] [address] Dr. Estrella Cazares Platelet mean volume (Bld) [Entitic vol] 12.3 fL Normal 9.5-13.5 [facility] Comment on above: Performed By: #### P T, PTT #### [facility] [address] [place] [address] Dr. Estrella Cazares PLT 144 103/ul Critically low 150-450 [facility] Comment on above: Performed By: #### P T, PTT #### [facility] [address] [place] [address] Dr. Estrella Cazares RBC 5.54 106/ul Normal 4.70-6.[address] [facility] Comment on above: Performed By: #### P T, PTT #### [facility] [address] [place] [address] Dr. Estrella Cazares WBC 8.4 103/ul Normal 4.0-11.0 [facility] Comment on above: Performed By: #### P T, PTT #### [facility] [address] [place] [address] Dr. Estrella Cazares PROF 14(COMP METB)on 022 Albumin [Mass/Vol] 3.9 g/dL Normal 3.5-5.0 [facility] Comment on above: Performed By: #### C MP #### [facility] [address] [place] [address] Dr. Estrella Cazares Albumin/Globulin [Mass ratio] 1.3 {ratio} Normal [facility] Comment on above: Performed By: #### C MP #### [facility] [address] [address] [address] Estrella Cazares ALP [Catalytic activity/Vol] 139 U/L Critically high 38-126 [facility] Comment on above: Performed By: #### C MP #### [facility] [address] [address] [address] Estrella Cazares ALT [Catalytic activity/Vol] 122 U/L Critically high 21-72 [facility] Comment on above: Performed By: #### C MP #### [facility] [address] [address] [address] Estrella Cazares Anion gap [Moles/Vol] 10.6 mmol/L Normal [facility] Comment on above: Performed By: #### C MP #### [facility] [address] [place] [address] Dr. Estrella Cazares AST [Catalytic activity/Vol] 40 U/L Normal 17-59 [facility] Comment on above: Performed By: #### C MP #### [facility] [address] [place] [address] Dr. Estrella Cazares Bilirubin [Mass/Vol] 0.5 mg/dL Normal 0.2-1.[address] [facility] Comment on above: Performed By: #### C MP #### [facility] [address] [place] [address] Dr. Estrella Cazares Calcium [Mass/Vol] 8.8 mg/dL Normal 8.4-10.2 [facility] Comment on above: Performed By: #### C MP #### [facility] [address] [place] [address] Dr. Estrella Cazares Chloride [Moles/Vol] 103 mmol/L Normal 98-107 [facility] Comment on above: Performed By: #### C MP #### [facility] [address] [place] [address] Dr. Estrella Cazares CO2 [Moles/Vol] 27.1 mmol/L Normal 22.0-30.0 [facility] Comment on above: Performed By: #### C MP #### [facility] [address] [place] [address] Dr. Estrella Cazares Creatinine [Mass/Vol] 0.90 mg/dL Normal 0.66-1.25 [facility] Comment on above: Performed By: #### C MP #### [facility] [address] [place] [address] Dr. Estrella Cazares EGFR-AF TAJIK >60 Normal >=60 [facility] Comment on above: Performed By: #### C MP #### [facility] [address] [address] [address] Estrella Cazares EGFR-NON AF TAJIK >60 Normal >=60 [facility] Comment on above: Performed By: #### C MP #### [facility] [address] [address] [address] Estrella Cazares Globulin (S) [Mass/Vol] 3.1 g/dL Normal [facility] Comment on above: Performed By: #### C MP #### [facility] [address] [place] [address] Dr. Estrella Cazares Glucose [Mass/Vol] 308 mg/dL Critically high 74-106 [facility] Comment on above: Performed By: #### C MP #### [facility] [address] [address] [address] Estrella Cazares Potassium [Moles/Vol] 3.7 mmol/L Normal 3.4-5.0 [facility] Comment on above: Performed By: #### C MP #### [facility] [address] [place] [address] Dr. Estrella Cazares Protein [Mass/Vol] 7.0 g/dL Normal 6.1-8.2 [facility] Comment on above: Performed By: #### C MP #### [facility] [address] [address] [address] Esrtella Cazares Sodium [Moles/Vol] 137 mmol/L Normal 137-145 [facility] Comment on above: Performed By: #### C MP #### [facility] [address] [address] [address] Estrella Cazares Urea nitrogen [Mass/Vol] 11.0 mg/dL Normal 9.0-20.0 [facility] Comment on above: Performed By: #### C MP #### [facility] [address] [place] [address] Dr. Estrella Cazares Urea nitrogen/Creatinine [Mass ratio] 12.2 mg/mg Normal [facility] Comment on above: Performed By: #### C MP #### [facility] [address] [place] [address] Dr. Estrella Cazares PROTIMEon 09-18-2021 INR Coag (PPP) [Relative time] 1.02 {INR} Normal [facility] Comment on above: Performed By: #### P T, PTT #### [facility] [address] [place] [address] Dr. Estrella Cazares INR GUIDELINES SEE BELOW Normal [facility] Comment on above: Result Comment: VANDA RED INR: 2.0 - 3.0 CONDITIONS NOT LISTED BELOW 2.5 - 3.5 FOR PROSTHETIC HEART VALVE REPLACEMENT 2.5 - 3.5 RECURRENT THROMBOSIS Performed By: #### P T, PTT #### [facility] [address] [place] [address] Dr. Estrella Cazares PT Coag (PPP) [Time] 11.0 s Normal 9.0-11.6 [facility] Comment on above: Performed By: #### P T, PTT #### [facility] [address] [place] [address] Dr. Estrella Cazares PTTon 09-18-2021 aPTT Coag (Bld) [Time] 28.1 s Normal 22.3-36.2 [facility] Comment on above: Performed By: #### P T, PTT #### [facility] [address] [place] [address] Dr. Estrella Cazares Bas Metab 2000 Pnl SerPlon 0 11-07-2020 Anion gap [Moles/Vol] 11 mmol/L Normal -18 [facility] Comment on above: Order Comment: Speci men Type: BLOOD SPECIMEN Performed By: #### 2 4321-2 ####[facility]ORYCLIA [id number] [place] [address] Calcium [Mass/Vol] 9.2 mg/dL Normal 8.5-10.2 [facility] Comment on above: Order Comment: Speci men Type: BLOOD SPECIMEN Performed By: #### 2 4321-2 ####[facility]ORYCLIA [id number] [place] [address] Chloride [Moles/Vol] 99 mmol/L Normal 97-105 [facility] Comment on above: Order Comment: Speci men Type: BLOOD SPECIMEN Performed By: #### 2 4321-2 ####[facility]ORYCLIA [id number] [place] [address] CO2 [Moles/Vol] 24 mmol/L Normal 22-30 [facility] Comment on above: Order Comment: Speci men Type: BLOOD SPECIMEN Performed By: #### 2 4321-2 ####[facility]ORYCLIA [id number] [place] [address] Creatinine [Mass/Vol] 0.74 mg/dL Normal 0.73-1.22 [facility] Comment on above: Order Comment: Speci men Type: BLOOD SPECIMEN Performed By: #### 2 4321-2 ####[facility]ORYCLIA [id number] [place] [address] GFR/1.73 sq M.predicted MDRD (S/P/Bld) [Vol rate/Area] mL/min/{1.73_m2} Normal [facility] Comment on above: Order Comment: Speci men Type: BLOOD SPECIMEN Result Comment: >60 eGFR (Estimated GFR) Units of measure: mL/min/1.73 meters squared eGFR is derived from the reexpressed MDRD Study equation using the following parameters: serum creatinine, age, gender and race. The creatinine assay has been calibrated to be traceable to IDMS. An eGFR <60 mL/min/1.73m2 for >3 months is consistent with chronic kidney disease. Refer to KDOQI guidelines for clinical interpretation. In patients with unstable renal function, e.g. those with acute kidney injury, the eGFR may not accurately reflect actual GFR. Performed By: #### 2 4321-2 ####[facility]ATORYCLIA [id number] [place] [address] Glucose [Mass/Vol] 290 mg/dL High 74-99 [facility] Comment on above: Order Comment: Speci men Type: BLOOD SPECIMEN Result Comment: The [place] Diabetes Association (ADA) provides guidance for cutoff values for fasting glucose and random glucose. The ADA defines fasting as no caloric intake for at least 8 hours. Fasting plasma glucose results between 100 to 125 mg/dL indicate increased risk for diabetes (prediabetes). Fasting plasma glucose results greater than or equal to 126 mg/dL meet the criteria for diagnosis of diabetes. In the absence of unequivocal hyperglycemia, results should be confirmed by repeat testing. In a patient with classic symptoms of hyperglycemia or hyperglycemic crisis, random plasma glucose results greater than or equal to 200 mg/dL meet the criteria for diagnosis of diabetes. Reference: Standards of Medical Care in Diabetes 2016, [place] [employer]. Diabetes Care. 2016.39(Suppl 1). Performed By: #### 2 4321-2 ####[facility]ORATORYCLIA [id number] [place] [address] Potassium [Moles/Vol] 4.0 mmol/L Normal 3.7-5.1 [facility] Comment on above: Order Comment: Speci men Type: BLOOD SPECIMEN Performed By: #### 2 4321-2 ####[facility]ATORYCLIA [id number] [place] [address] Sodium [Moles/Vol] 134 mmol/L Low 136-144 [facility] Comment on above: Order Comment: Speci men Type: BLOOD SPECIMEN Performed By: #### 2 4321-2 ####[facility]ATORYCLIA [id number] [place] [address] Urea nitrogen [Mass/Vol] 19 mg/dL Normal 9-24 [facility] Comment on above: Order Comment: Speci men Type: BLOOD SPECIMEN Performed By: #### 2 4321-2 ####[facility]ATORYCLIA [id number] [place] [address] CASE MANAGEMon 11-07-2020 CASE MANAGEM HNO ID: [id number] Author: Mena AvilaRn) SARANYA Palmer Service: Care Management Author Type: Registered Nurse Type: Care Mgt Progress Note Filed: 11/07/2020 3:09 PM Note Text: CARE MANAGEMENT DISCHARGE NOTE SERVICE DATE: 11/07/2020 SERVICE TIME: 3:06 PM LOS: 7 days Admission Date: 10/31/2020 DISCHARGE ARRANGEMENT (list agency and phone number) Discharge Arrangement: Home Provider Name: Christine White CAREGIVER ASSESSMENT: Caregiver is ready, willing and able to meet the patient's needs as recommended by the inter-professional team:: No Caregiver needed Does the patient have an acute stroke diagnosis, or has the patient had a stroke during this admission?: No Patient's transition needs and plan for meeting these needs: home with self care HANDOFF COMMUNICATION: Handoff to: Primary Care Physician Primary Care Physician Name/Phone: summary of care sent to PCP TRANSPORTATION ARRANGEMENTS: Transportation Arrangements: Car (with family) ADDITIONAL CONTACT RESOURCES: n/a Pt dc to home with no TCC needs. SIGNATURE: Mena Palmer RN PATIENT NAME: Charo Shukla DATE: November 07, 2020 TIME: 3:06 PM PAGER/CONTACT #: [phone] [facility] CBC Pnl Bld Autoon Erythrocyte distribution width (RBC) [Ratio] 13.5 % Normal 11.5-15.0 [facility] Comment on above: Order Comment: Speci men Type: BLOOD SPECIMEN Performed By: #### 5 8410-2 ####[facility]ORATORYCLIA [id number] [place] [address] Hematocrit (Bld) [Volume fraction] 52.3 % High 39.0-51.0 [facility] Comment on above: Order Comment: Speci men Type: BLOOD SPECIMEN Performed By: #### 5 8410-2 ####[facility]ORATORYCLIA [id number] [place] [address] Hemoglobin (Bld) [Mass/Vol] 17.0 g/dL Normal 13.0-17.0 [facility] Comment on above: Order Comment: Speci men Type: BLOOD SPECIMEN Performed By: #### 5 8410-2 ####[facility]ATORYCLIA [id number] [place] [address] MCH (RBC) [Entitic mass] 27.9 pg Normal 26.0-34.0 [facility] Comment on above: Order Comment: Speci men Type: BLOOD SPECIMEN Performed By: #### 5 8410-2 ####[facility]ORATORYCLIA [id number] [place] [address] MCHC (RBC) [Mass/Vol] 32.5 g/dL Normal 30.5-36.0 [facility] Comment on above: Order Comment: Speci men Type: BLOOD SPECIMEN Performed By: #### 5 8410-2 ####[facility]ORATORYCLIA [id number] [place] [address] MCV (RBC) [Entitic vol] 85.9 fL Normal 80.0-100.0 [facility] Comment on above: Order Comment: Speci men Type: BLOOD SPECIMEN Performed By: #### 5 8410-2 ####[facility]ATORYCLIA [id number] [place] [address] Nucleated RBC (Bld) [#/Vol] 10*3/uL Normal <0.01 [facility] Comment on above: Order Comment: Speci men Type: BLOOD SPECIMEN Performed By: #### 5 8410-2 ####[facility]ORATORYCLIA [id number] [place] [address] Platelet mean volume (Bld) [Entitic vol] 12.2 fL Normal 9.0-12.7 [facility] Comment on above: Order Comment: Speci men Type: BLOOD SPECIMEN Performed By: #### 5 8410-2 ####[facility]ORATORYCLIA [id number] [place] [address] Platelets (Bld) [#/Vol] 226 10*3/uL Normal 150-400 [facility] Comment on above: Order Comment: Speci men Type: BLOOD SPECIMEN Performed By: #### 5 8410-2 ####[facility]ATORYCLIA [id number] [place] [address] RBC (Bld) [#/Vol] 6.09 10*6/uL High 4.20-6.00 [facility] Comment on above: Order Comment: Speci men Type: BLOOD SPECIMEN Performed By: #### 5 8410-2 ####[facility]ORATORYCLIA [id number] [place] [address] WBC (Bld) [#/Vol] 13.90 10*3/uL High 3.70-11.00 [facility] Comment on above: Order Comment: Speci men Type: BLOOD SPECIMEN Performed By: #### 5 8410-2 ####[facility]ORATORYCLIA [id number] [place] [address] NURSING PROGon 11-07-2020 NURSING PROG HNO ID: [id number] Author: Kellie (Rn) SARANYA Brady Service: Nursing Author Type: Registered Nurse Type: Nursing Progress Note Filed: 11/07/2020 3:59 PM Note Text: Pt ambulated in room on room air. Pulse oxygenation remained above 93% on room air. Dr notified Normal [facility] PROGRESSon 11-07-2020 PROGRESS HNO ID: [id number] Author: Gadiel Douglas MD Service: General Internal Medicine Author Type: Physician Type: Progress Notes Filed: 11/07/2020 10:33 AM Note Text: DEPARTMENT OF HOSPITAL MEDICINE PROGRESS NOTE SERVICE DATE: 11/07/2020 SERVICE TIME: 9:14 AM Hospital Medicine/Primary Attending: Gadiel Douglas MD NIGHT AND WEEKEND COVERAGE: After 7pm please page [phone] SUBJECTIVE: Pt seen and examined. He reports feeling better today. Currently he is on 2 L of oxygen by nasal cannula. Denies any increased cough or shortness of breath. Reports good oral intake. OBJECTIVE: PHYSICAL EXAM: BP 120/78 Pulse 79 Temp (Src) 98.2 (Oral) Resp 20 Ht 5' 8 (1.73m) Wt 229 lb 4.5 oz (104.0kg) SpO2 92% BMI 34.87 kg/(m2). O2 Therapy: Nasal Cannula, Liters: 2 General - AANDOx3, NAD, Calm CV - RRR S1 S2 RESP - CTA B/L ABD - soft, NT, ND +BS EXT - no calf tenderness or edema NEURO - CN II-XII grossly intact, no focal deficits MEDICATIONS: Current Facility-Administered Medications Medication Dose Route Frequency - doxycycline 100 mg in D5W 250 mL Vial-Mate (VIBRAMYCIN) 100 mg INTRAVENOUS q 12 H - dexAMETHasone 6 mg tab(s) (DECADRON) 6 mg ORAL DAILY - aluminum-magnesium hydroxide-simethicone 200-200-20 mg/5 mL 30 mL (MAALOX,MYLANTA,MAG-AL PLUS) 30 mL ORAL DAILY PRN - ondansetron 4 mg tab(s) (ZOFRAN) 4 mg ORAL q 6 H PRN Or - ondansetron (PF) 4 mg injection (ZOFRAN) 4 mg INTRAVENOUS q 6 H PRN - magnesium hydroxide 400 mg/5 mL 30 mL (MOM) 30 mL ORAL DAILY PRN - docusate sodium 100 mg cap(s) (COLACE) 100 mg ORAL BID PRN - bisacodyl 10 mg suppository (DULCOLAX) 10 mg RECTAL DAILY PRN - acetaminophen 650 mg tab(s) (TYLENOL) 650 mg ORAL q 6 H PRN - guaiFENesin 600 mg ER tab(s) (MUCINEX) 600 mg ORAL q 12 H PRN - diphenhydrAMINE 25 mg injection (BENADRYL) 25 mg INTRAVENOUS DAILY - levoFLOXacin iv piggyback 750 mg in D5W 150 mL (LEVAQUIN) 750 mg INTRAVENOUS DAILY - enoxaparin 40 mg injection (LOVENOX) 40 mg SUBCUTANEOUS q 24 HR - albuterol HFA 90 mcg/actuation 2 Puff (PROVENTIL HFA, VENTOLIN HFA) 2 Puff INHALATION QID DATA: Diagnostic tests reviewed for today's visit: CBC: Recent Labs 11/07/20 0506 WBC 13.90* RBC 6.09* HB 17.0 HCT 52.3* PLT 226 MCV 85.9 MCH 27.9 MPV 12.2 BMP: Recent Labs 11/07/20 0506 NA 134* K 4.0 CHLOR 99 CO2 24 BUN 19 CREAT 0.74 GLUC 290* CMP: Recent Labs 11/07/20 0506 NA 134* K 4.0 CHLOR 99 CO2 24 BUN 19 CREAT 0.74 GLUC 290* CA 9.2 ANION 11 Renal Panel: Recent Labs 11/07/20 0506 CREAT 0.74 BUN 19 GLUC 290* CA 9.2 CHLOR 99 K 4.0 CO2 24 NA 134* Estimated Creatinine Clearance: 175.2 mL/min (based on SCr of 0.74 mg/dL). Assessment/Plan 1. Acute hypoxic respiratory failure ?on 2 L of oxygen ?Ambulatory pulse oximetry today ?Continue incentive spirometry ? 2. COVID-19 infection ?Continue dexamethasone, completed remdesevir ?Infectious disease service on board ? 3. Presumed bacterial pneumonia ?Completed course of doxycycline, levofloxacin Medication and Non-Pharmacologic VTE Prophylaxis/Anticoagula nts Anticoagulant AND Antiplatelet Medications (From admission, onward) Comment Start Dose Route Frequency Last Action Ordered Stop 11/01/20 1700 enoxaparin 40 mg injection (LOVENOX) (enoxaparin injection (LOVENOX)) 40 mg SUBCUTANEOUS EVERY 24 HOURS Given, 11/06 1647 11/01/20 1644 -- 11/01/20 1500 activity - mobilize patient (mn,nc) 10/31/20 184 vte pharmacologic prophylaxis contraindicated ([place]) 10/31/20 1845 graduated compression stockings ([place]) Lines, Drains, and Airways Line Peripheral 11/05/20 Assessment Left Forearm 20 Gauge 2 days VTE Prophylaxis: Lovenox 40mg Sub Q Daily Disposition: Home Plan of care discussed with: Patient SIGNATURE: Gadiel Douglas MD PATIENT NAME: Charo Shukla DATE: November 07, 2020 TIME: 9:14 AM PAGER/CONTACT #: Team color pager Disclaimer: Portions of this note may have been generated using [employer] voice recognition software. Reasonable efforts were made to correct any dictation errors that resulted due to the programming of this software but some may still be present. Please note, the time of this note does not reflect the time I saw this patient today, but the time of this documentation. Normal [facility] NURSING PROGon 11-06-2020 NURSING PROG HNO ID: [id number] Author: Nahid AvilaRn) SARANYA Baires Service: Nursing Author Type: Registered Nurse Type: Nursing Progress Note Filed: 11/06/2020 9:46 PM Note Text: Spoke with pts dad via phone and he is asking that the attending physician call him for an updating in the morning. Will pass along to day shift RN. Normal [facility] NURSING PROG HNO ID: [id number] Author: Nicole AvilaRn) SARANYA De Leon Service: Nursing Author Type: Registered Nurse Type: Nursing Progress Note Filed: 11/06/2020 2:59 PM Note Text: Nursing Progress Note Patient Name: Charo Suhkla Patient Location: [id number] Attempted blood draw x2- unable to obtain D-dimer and ferritin. Normal [facility] PROGRESSon 11-06-2020 PROGRESS HNO ID: [id number] Author: Gadiel Douglas MD Service: General Internal Medicine Author Type: Physician Type: Progress Notes Filed: 11/06/2020 11:39 AM Note Text: DEPARTMENT OF HOSPITAL MEDICINE PROGRESS NOTE SERVICE DATE: 11/06/2020 SERVICE TIME: 11:34 AM Hospital Medicine/Primary Attending: Gadiel Douglas MD NIGHT AND WEEKEND COVERAGE: After 7pm please page [phone] SUBJECTIVE: Pt seen and examined. Has been weaned to 3 L today. No acute issues overnight. OBJECTIVE: PHYSICAL EXAM: BP 108/72 Pulse 65 Temp (Src) 97.5 (Temporal) Resp 18 Ht 5' 8 (1.73m) Wt 229 lb 4.5 oz (104.0kg) SpO2 94% BMI 34.87 kg/(m2). O2 Therapy: Nasal Cannula, Liters: 3 General - AANDOx3, NAD, Calm CV - RRR S1 S2 RESP - CTA B/L ABD - soft, NT, ND +BS EXT - no edema NEURO - CN II-XII grossly intact, no focal deficits MEDICATIONS: Current Facility-Administered Medications Medication Dose Route Frequency - doxycycline 100 mg in D5W 250 mL Vial-Mate (VIBRAMYCIN) 100 mg INTRAVENOUS q 12 H - dexAMETHasone 6 mg tab(s) (DECADRON) 6 mg ORAL DAILY - aluminum-magnesium hydroxide-simethicone 200-200-20 mg/5 mL 30 mL (MAALOX,MYLANTA,MAG-AL PLUS) 30 mL ORAL DAILY PRN - ondansetron 4 mg tab(s) (ZOFRAN) 4 mg ORAL q 6 H PRN Or - ondansetron (PF) 4 mg injection (ZOFRAN) 4 mg INTRAVENOUS q 6 H PRN - magnesium hydroxide 400 mg/5 mL 30 mL (MOM) 30 mL ORAL DAILY PRN - docusate sodium 100 mg cap(s) (COLACE) 100 mg ORAL BID PRN - bisacodyl 10 mg suppository (DULCOLAX) 10 mg RECTAL DAILY PRN - acetaminophen 650 mg tab(s) (TYLENOL) 650 mg ORAL q 6 H PRN - guaiFENesin 600 mg ER tab(s) (MUCINEX) 600 mg ORAL q 12 H PRN - diphenhydrAMINE 25 mg injection (BENADRYL) 25 mg INTRAVENOUS DAILY - levoFLOXacin iv piggyback 750 mg in D5W 150 mL (LEVAQUIN) 750 mg INTRAVENOUS DAILY - enoxaparin 40 mg injection (LOVENOX) 40 mg SUBCUTANEOUS q 24 HR - albuterol HFA 90 mcg/actuation 2 Puff (PROVENTIL HFA, VENTOLIN HFA) 2 Puff INHALATION QID Estimated Creatinine Clearance: 202.6 mL/min (A) (based on SCr of 0.64 mg/dL (L)). Assessment/Plan 1. Acute hypoxic respiratory failure ?on 3L of oxygen ?Continue supplemental oxygen, wean as tolerated ?Continue incentive spirometry ? 2. COVID-19 infection ?Continue dexamethasone, completed remdesevir ?Infectious disease service on board ? 3. Presumed bacterial pneumonia ?Continue doxycycline, levofloxacin ? Medication and Non-Pharmacologic VTE Prophylaxis/Anticoagula nts Anticoagulant AND Antiplatelet Medications (From admission, onward) Comment Start Dose Route Frequency Last Action Ordered Stop 11/01/20 1700 enoxaparin 40 mg injection (LOVENOX) (enoxaparin injection (LOVENOX)) 40 mg SUBCUTANEOUS EVERY 24 HOURS Given, 11/05 1702 11/01/20 1644 -- 11/01/20 1500 activity - mobilize patient ([place]) 10/31/20 1845 vte pharmacologic prophylaxis contraindicated (mn,nc) 10/31/20 1845 graduated compression stockings ([place]) Lines, Drains, and Airways Line Peripheral 11/05/20 Assessment Left Forearm 20 Gauge 1 day VTE Prophylaxis: Lovenox Disposition: Home Plan of care discussed with: Patient SIGNATURE: Gadiel Douglas MD PATIENT NAME: Charo Shukla DATE: November 06, 2020 TIME: 11:34 AM PAGER/CONTACT #: Alana diaz pager Disclaimer: Portions of this note may have been generated using [employer] voice recognition software. Reasonable efforts were made to correct any dictation errors that resulted due to the programming of this software but some may still be present. Please note, the time of this note does not reflect the time I saw this patient today, but the time of this documentation. Normal [facility] CRP SerPl-ncon 11-05-2020 CRP [Mass/Vol] 0.7 mg/dL Normal <0.9 [facility] Comment on above: Order Comment: Speci men Type: BLOOD SPECIMEN Performed By: #### 5 7021-8 #### [facility] CLIA [id number] [address] [place] [address] D dimer FEU PPP-ncon 11-05 Fibrin D-dimer FEU (PPP) [Mass/Vol] 280 ng/mL FEU Normal <500 [facility] Comment on above: Order Comment: Speci men Type: BLOOD SPECIMEN Performed By: #### 4 8065-7 ####[facility] [id number] [place] [address] FERRITIN BLDon 11-05-2020 Ferritin [Mass/Vol] 648.9 ng/mL High 30.3-565.7 [facility] Comment on above: Order Comment: Speci men Type: BLOOD SPECIMEN Performed By: #### 5 7021-8 #### [facility] CLIA [id number] [address] [place] [address] HEPATIC FUNCTION PNLon 11-05 Albumin [Mass/Vol] 3.3 g/dL Low 3.9-4.9 [facility] Comment on above: Order Comment: Speci men Type: BLOOD SPECIMEN Performed By: #### 5 7021-8 #### [facility] CLIA [id number] [address] [place] [address] ALP [Catalytic activity/Vol] 83 U/L Normal 38-113 [facility] Comment on above: Order Comment: Speci men Type: BLOOD SPECIMEN Performed By: #### 5 7021-8 #### [facility] CLIA [id number] [address] [place] [address] ALT With P-5'-P [Catalytic activity/Vol] 65 U/L High 10-54 [facility] Comment on above: Order Comment: Speci men Type: BLOOD SPECIMEN Performed By: #### 5 7021-8 #### [facility] CLIA [id number] [address] [place] [address] AST With P-5'-P [Catalytic activity/Vol] 55 U/L High 14-40 [facility] Comment on above: Order Comment: Speci men Type: BLOOD SPECIMEN Performed By: #### 5 7021-8 #### [facility] CLIA [id number] [address] [place] [address] Bilirubin [Mass/Vol] 0.5 mg/dL Normal 0.2-1.3 [facility] Comment on above: Order Comment: Speci men Type: BLOOD SPECIMEN Performed By: #### 5 7021-8 #### [facility] CLIA [id number] [address] [place] [address] Bilirubin.conjugate d [Mass/Vol] mg/dL Normal <0.2 [facility] Comment on above: Order Comment: Speci men Type: BLOOD SPECIMEN Performed By: #### 5 7021-8 #### [facility] CLIA [id number] [address] [place] [address] Protein [Mass/Vol] 5.6 g/dL Low 6.3-8.0 [facility] Comment on above: Order Comment: Speci men Type: BLOOD SPECIMEN Performed By: #### 5 7021-8 #### [facility] CLIA [id number] [address] [place] [address] PROGRESSon 11-05-2020 PROGRESS HNO ID: [id number] Author: Gadiel Douglas MD Service: General Internal Medicine Author Type: Physician Type: Progress Notes Filed: 11/05/2020 2:36 PM Note Text: DEPARTMENT OF HOSPITAL MEDICINE PROGRESS NOTE SERVICE DATE: 11/05/2020 SERVICE TIME: 2:34 PM Hospital Medicine/Primary Attending: Gadiel Douglas MD NIGHT AND WEEKEND COVERAGE: After 7pm please page [phone] SUBJECTIVE: Pt seen and examined. Remains on 6 L of oxygen. Reports increased shortness of breath on ambulation. Finished course of remdesivir yesterday. OBJECTIVE: PHYSICAL EXAM: BP 113/71 Pulse 77 Temp (Src) 98.1 (Oral) Resp 18 Ht 5' 8 (1.73m) Wt 229 lb 4.5 oz (104.0kg) SpO2 94% BMI 34.87 kg/(m2). O2 Therapy: Nasal Cannula, Liters: 6 General - AANDOx3, NAD, Calm CV - RRR S1 S2, No M/R/G RESP - CTA B/L ABD - soft, NT, ND +BS EXT - no edema NEURO - CN II-XII grossly intact, no focal deficits MEDICATIONS: Current Facility-Administered Medications Medication Dose Route Frequency - doxycycline 100 mg in D5W 250 mL Vial-Mate (VIBRAMYCIN) 100 mg INTRAVENOUS q 12 H - dexAMETHasone 6 mg tab(s) (DECADRON) 6 mg ORAL DAILY - aluminum-magnesium hydroxide-simethicone 200-200-20 mg/5 mL 30 mL (MAALOX,MYLANTA,MAG-AL PLUS) 30 mL ORAL DAILY PRN - ondansetron 4 mg tab(s) (ZOFRAN) 4 mg ORAL q 6 H PRN Or - ondansetron (PF) 4 mg injection (ZOFRAN) 4 mg INTRAVENOUS q 6 H PRN - magnesium hydroxide 400 mg/5 mL 30 mL (MOM) 30 mL ORAL DAILY PRN - docusate sodium 100 mg cap(s) (COLACE) 100 mg ORAL BID PRN - bisacodyl 10 mg suppository (DULCOLAX) 10 mg RECTAL DAILY PRN - acetaminophen 650 mg tab(s) (TYLENOL) 650 mg ORAL q 6 H PRN - guaiFENesin 600 mg ER tab(s) (MUCINEX) 600 mg ORAL q 12 H PRN - diphenhydrAMINE 25 mg injection (BENADRYL) 25 mg INTRAVENOUS DAILY - levoFLOXacin iv piggyback 750 mg in D5W 150 mL (LEVAQUIN) 750 mg INTRAVENOUS DAILY - enoxaparin 40 mg injection (LOVENOX) 40 mg SUBCUTANEOUS q 24 HR - albuterol HFA 90 mcg/actuation 2 Puff (PROVENTIL HFA, VENTOLIN HFA) 2 Puff INHALATION QID DATA: Diagnostic tests reviewed for today's visit: CMP: Recent Labs 11/05/20419 TPROT 5.6* TBILI 0.5 ALKPHOS 83 ALT 65* AST 55* Liver Function, Amylase, Lipase: Recent Labs 11/05/20419 TPROT 5.6* ALB 3.3* ALT 65* AST 55* ALKPHOS 83 TBILI 0.5 Heme: Recent Labs 11/05/20419 ZOYA 648.9* Estimated Creatinine Clearance: 202.6 mL/min (A) (based on SCr of 0.64 mg/dL (L)). Assessment/Plan 1. Acute hypoxic respiratory failure ?Continue supplemental oxygen ?Continues to be on 6 L of oxygen ?Wean as tolerated ?Encouraged incentive spirometry 2. COVID-19 infection ?Continue remdesivir, dexamethasone ?Infectious disease service on board ?CRP has normalized today 3. Presumed bacterial pneumonia ?Continue doxycycline, levofloxacin Medication and Non-Pharmacologic VTE Prophylaxis/Anticoagula nts Anticoagulant AND Antiplatelet Medications (From admission, onward) Comment Start Dose Route Frequency Last Action Ordered Stop 11/01/20 1700 enoxaparin 40 mg injection (LOVENOX) (enoxaparin injection (LOVENOX)) 40 mg SUBCUTANEOUS EVERY 24 HOURS Given, 11/04 1641 11/01/20 1644 -- 11/01/20 1500 activity - mobilize patient ([place]) 10/31/20 1845 vte pharmacologic prophylaxis contraindicated ([place]) 10/31/20 1845 graduated compression stockings ([place]) Lines, Drains, and Airways Line Peripheral 11/05/20 Assessment Left Forearm 20 Gauge <1 day VTE Prophylaxis: Lovenox 40mg Sub Q Daily Disposition: Home Plan of care discussed with: Patient SIGNATURE: Gadiel Douglas MD PATIENT NAME: Charo Shukla DATE: November 05, 2020 TIME: 2:34 PM PAGER/CONTACT #: Team color pager Disclaimer: Portions of this note may have been generated using [employer] voice recognition software. Reasonable efforts were made to correct any dictation errors that resulted due to the programming of this software but some may still be present. Please note, the time of this note does not reflect the time I saw this patient today, but the time of this documentation. Normal [facility] CBC Pnl Bld Autoon 1 Erythrocyte distribution width (RBC) [Ratio] 13.0 % Normal 11.5-15.0 [facility] Comment on above: Order Comment: Speci men Type: BLOOD SPECIMEN Performed By: #### 5 7021-8 #### [facility] CLIA [id number] [address] [place] [address] Hematocrit (Bld) [Volume fraction] 42.5 % Normal 39.0-51.0 [facility] Comment on above: Order Comment: Speci men Type: BLOOD SPECIMEN Performed By: #### 5 7021-8 #### [facility] CLIA [id number] [address] [place] [address] Hemoglobin (Bld) [Mass/Vol] 14.1 g/dL Normal 13.0-17.0 [facility] Comment on above: Order Comment: Speci men Type: BLOOD SPECIMEN Performed By: #### 5 7021-8 #### [facility] CLIA [id number] [address] [place] [address] MCH (RBC) [Entitic mass] 27.8 pg Normal 26.0-34.0 [facility] Comment on above: Order Comment: Speci men Type: BLOOD SPECIMEN Performed By: #### 5 7021-8 #### [facility] CLIA [id number] [address] [place] [address] MCHC (RBC) [Mass/Vol] 33.2 g/dL Normal 30.5-36.0 [facility] Comment on above: Order Comment: Speci men Type: BLOOD SPECIMEN Performed By: #### 5 7021-8 #### [facility] CLIA [id number] [address] [place] [address] MCV (RBC) [Entitic vol] 83.7 fL Normal 80.0-100.0 [facility] Comment on above: Order Comment: Speci men Type: BLOOD SPECIMEN Performed By: #### 5 7021-8 #### [facility] CLIA [id number] [address] [place] [address] Nucleated RBC (Bld) [#/Vol] 10*3/uL Normal <0.01 [facility] Comment on above: Order Comment: Speci men Type: BLOOD SPECIMEN Performed By: #### 5 7021-8 #### [facility] CLIA [id number] [address] [place] [address] Platelet mean volume (Bld) [Entitic vol] 11.9 fL Normal 9.0-12.7 [facility] Comment on above: Order Comment: Speci men Type: BLOOD SPECIMEN Performed By: #### 5 7021-8 #### [facility] CLIA [id number] [address] [place] [address] Platelets (Bld) [#/Vol] 205 10*3/uL Normal 150-400 [facility] Comment on above: Order Comment: Speci men Type: BLOOD SPECIMEN Performed By: #### 5 7021-8 #### [facility] CLIA [id number] [address] [place] [address] RBC (Bld) [#/Vol] 5.08 10*6/uL Normal 4.20-6.00 [facility] Comment on above: Order Comment: Speci men Type: BLOOD SPECIMEN Performed By: #### 5 7021-8 #### [facility] CLIA [id number] [address] [place] [address] WBC (Bld) [#/Vol] 9.37 10*3/uL Normal 3.70-11.00 [facility] Comment on above: Order Comment: Speci men Type: BLOOD SPECIMEN Performed By: #### 5 7021-8 #### [facility] CLIA [id number] [address] [place] [address] Comp Metab 2000 Pnl SerPlon 11-04-2020 Albumin [Mass/Vol] 3.3 g/dL Low 3.9-4.9 [facility] Comment on above: Order Comment: Speci men Type: BLOOD SPECIMEN Performed By: #### 2 4323-8 #### [facility] CLIA [id number] [address] [place] [address] ALP [Catalytic activity/Vol] 76 U/L Normal 38-113 [facility] Comment on above: Order Comment: Speci men Type: BLOOD SPECIMEN Performed By: #### 2 4323-8 #### [facility] CLIA [id number] [address] [place] [address] ALT With P-5'-P [Catalytic activity/Vol] 52 U/L Normal 10-54 [facility] Comment on above: Order Comment: Speci men Type: BLOOD SPECIMEN Performed By: #### 2 4323-8 #### [facility] CLIA [id number] [address] [place] [address] Anion gap [Moles/Vol] 10 mmol/L Normal 9-18 [facility] Comment on above: Order Comment: Speci men Type: BLOOD SPECIMEN Performed By: #### 2 4323-8 #### [facility] CLIA [id number] [address] [place] [address] AST With P-5'-P [Catalytic activity/Vol] 61 U/L High 14-40 [facility] Comment on above: Order Comment: Speci men Type: BLOOD SPECIMEN Performed By: #### 2 4323-8 #### [facility] CLIA [id number] [address] [place] [address] Bilirubin [Mass/Vol] 0.4 mg/dL Normal 0.2-1.3 [facility] Comment on above: Order Comment: Speci men Type: BLOOD SPECIMEN Performed By: #### 2 4323-8 #### [facility] CLIA [id number] [address] [place] [address] Calcium [Mass/Vol] 8.5 mg/dL Normal 8.5-10.2 [facility] Comment on above: Order Comment: Speci men Type: BLOOD SPECIMEN Performed By: #### 2 4323-8 #### [facility] CLIA [id number] [address] [place] [address] Chloride [Moles/Vol] 106 mmol/L High 97-105 [facility] Comment on above: Order Comment: Speci men Type: BLOOD SPECIMEN Performed By: #### 2 4323-8 #### [facility] CLIA [id number] [address] [place] [address] CO2 [Moles/Vol] 22 mmol/L Normal 22-30 [facility] Comment on above: Order Comment: Speci men Type: BLOOD SPECIMEN Performed By: #### 2 4323-8 #### [facility] CLIA [id number] [address] [place] [address] Creatinine [Mass/Vol] 0.64 mg/dL Low 0.73-1.22 [facility] Comment on above: Order Comment: Speci men Type: BLOOD SPECIMEN Performed By: #### 2 4323-8 #### [facility] CLIA [id number] [address] [place] [address] GFR/1.73 sq M.predicted MDRD (S/P/Bld) [Vol rate/Area] mL/min/{1.73_m2} Normal [facility] Comment on above: Order Comment: Speci men Type: BLOOD SPECIMEN Result Comment: >60 eGFR (Estimated GFR) Units of measure: mL/min/1.73 meters squared eGFR is derived from the reexpressed MDRD Study equation using the following parameters: serum creatinine, age, gender and race. The creatinine assay has been calibrated to be traceable to IDMS. An eGFR <60 mL/min/1.73m2 for >3 months is consistent with chronic kidney disease. Refer to KDOQI guidelines for clinical interpretation. In patients with unstable renal function, e.g. those with acute kidney injury, the eGFR may not accurately reflect actual GFR. Performed By: #### 2 4323-8 #### [facility] CLIA [id number] [address] [place] [address] Glucose [Mass/Vol] 206 mg/dL High 74-99 [facility] Comment on above: Order Comment: Speci men Type: BLOOD SPECIMEN Result Comment: The [place] [employer] (ADA) provides guidance for cutoff values for fasting glucose and random glucose. The ADA defines fasting as no caloric intake for at least 8 hours. Fasting plasma glucose results between 100 to 125 mg/dL indicate increased risk for diabetes (prediabetes). Fasting plasma glucose results greater than or equal to 126 mg/dL meet the criteria for diagnosis of diabetes. In the absence of unequivocal hyperglycemia, results should be confirmed by repeat testing. In a patient with classic symptoms of hyperglycemia or hyperglycemic crisis, random plasma glucose results greater than or equal to 200 mg/dL meet the criteria for diagnosis of diabetes. Reference: Standards of Medical Care in Diabetes 2016, [place] [employer]. Diabetes Care. 2016.39(Suppl 1). Performed By: #### 2 4323-8 #### [facility] CLIA [id number] [address] [place] [address] Potassium [Moles/Vol] 4.2 mmol/L Normal 3.7-5.1 [facility] Comment on above: Order Comment: Speci men Type: BLOOD SPECIMEN Performed By: #### 2 4323-8 #### [facility] CLIA [id number] [address] [place] [address] Protein [Mass/Vol] 5.7 g/dL Low 6.3-8.0 [facility] Comment on above: Order Comment: Speci men Type: BLOOD SPECIMEN Performed By: #### 2 4323-8 #### [facility] CLIA [id number] [address] [place] [address] Sodium [Moles/Vol] 138 mmol/L Normal 136-144 [facility] Comment on above: Order Comment: Speci men Type: BLOOD SPECIMEN Performed By: #### 2 4323-8 #### [facility] CLIA [id number] [address] [place] [address] Urea nitrogen [Mass/Vol] 13 mg/dL Normal 9-24 [facility] Comment on above: Order Comment: Speci men Type: BLOOD SPECIMEN Performed By: #### 2 4323-8 #### [facility] CLIA [id number] [address] [place] [address] NURSING PROGon 11-04-2020 NURSING PROG HNO ID: [id number] Author: Brittany AvilaRn) SARANYA Marte Service: Nursing Author Type: Registered Nurse Type: Nursing Progress Note Filed: 11/04/2020 6:59 PM Note Text: Nursing Progress Note Patient Name: Charo Shukla Patient Location: [id number]/[id number] Daily Note:Attempted to place IV and draw blood x 2 without success. This note was completed by: Brittany Marte RN Normal [facility] PLAN OF CAREon 11-04-2020 PLAN OF CARE HNO ID: [id number] Author: Warren Melo Service: Infectious Disease Author Type: Physician Type: Plan of Care Filed: 11/04/2020 5:59 PM Note Text: ID Day 5 and last day of remdesivir. Afebrile. On dexamethasone. Apparently improving each day although still on 6 L nasal cannula Dose #4 levofloxacin and day 4.5 doxycycline Remdesivir will stop. I would give 7 doses of levofloxacin whether here or home. I would give doxycycline through November 07 AM dose When ready for discharge no ID follow-up needed Warren Melo MD 11/04/2020 5:[phone] [facility] PROCALCITONIN (LAB)on 2020 Procalcitonin [Mass/Vol] 0.11 ng/mL High <0.09 [facility] Comment on above: Order Comment: Speci men Type: BLOOD SPECIMEN Result Comment: For a guided interpretation of test results, please visit the Change in Procalcitonin Calculator, [email or web address]. Performed By: #### 5 7021-8 #### [facility] CLIA [id number] [address] [place] [address] PROGRESSon 11-04-2020 PROGRESS HNO ID: [id number] Author: Gadiel Douglas MD Service: General Internal Medicine Author Type: Physician Type: Progress Notes Filed: 11/04/2020 2:11 PM Note Text: DEPARTMENT OF HOSPITAL MEDICINE PROGRESS NOTE SERVICE DATE: 11/04/2020 SERVICE TIME: 12:13 PM Hospital Medicine/Primary Attending: Gadiel Douglas MD NIGHT AND WEEKEND COVERAGE: After 7pm please page [phone] CHIEF COMPLAINT: Shortness of breath SUBJECTIVE: Pt seen and examined. Short of breath on ambulation. Denies any increased cough. No fever or chills overnight. OBJECTIVE: PHYSICAL EXAM: BP 121/77 Pulse 76 Temp (Src) 97.9 (Temporal) Resp 20 Ht 5' 8 (1.73m) Wt 229 lb 4.5 oz (104.0kg) SpO2 95% BMI 34.87 kg/(m2). O2 Therapy: Nasal Cannula-Humidified (7-15 LPM), Liters: 6 General - AANDOx3, NAD, Calm CV - RRR S1 S2, No M/R/G RESP - CTA B/L ABD - soft, NT, ND +BS EXT - no edema NEURO - CN II-XII grossly intact, no focal deficits MEDICATIONS: Current Facility-Administered Medications Medication Dose Route Frequency - doxycycline 100 mg in D5W 250 mL Vial-Mate (VIBRAMYCIN) 100 mg INTRAVENOUS q 12 H - remdesivir 100 mg in NaCl 0.9% 250 mL 100 mg INTRAVENOUS q 24 HR And - sodium chloride 0.9 % (flush) 30 mL (BD POSIFLUSH) 30 mL INTRAVENOUS q 24 HR - dexAMETHasone 6 mg tab(s) (DECADRON) 6 mg ORAL DAILY - aluminum-magnesium hydroxide-simethicone 200-200-20 mg/5 mL 30 mL (MAALOX,MYLANTA,MAG-AL PLUS) 30 mL ORAL DAILY PRN - ondansetron 4 mg tab(s) (ZOFRAN) 4 mg ORAL q 6 H PRN Or - ondansetron (PF) 4 mg injection (ZOFRAN) 4 mg INTRAVENOUS q 6 H PRN - magnesium hydroxide 400 mg/5 mL 30 mL (MOM) 30 mL ORAL DAILY PRN - docusate sodium 100 mg cap(s) (COLACE) 100 mg ORAL BID PRN - bisacodyl 10 mg suppository (DULCOLAX) 10 mg RECTAL DAILY PRN - acetaminophen 650 mg tab(s) (TYLENOL) 650 mg ORAL q 6 H PRN - guaiFENesin 600 mg ER tab(s) (MUCINEX) 600 mg ORAL q 12 H PRN - diphenhydrAMINE 25 mg injection (BENADRYL) 25 mg INTRAVENOUS DAILY - levoFLOXacin iv piggyback 750 mg in D5W 150 mL (LEVAQUIN) 750 mg INTRAVENOUS DAILY - enoxaparin 40 mg injection (LOVENOX) 40 mg SUBCUTANEOUS q 24 HR - albuterol HFA 90 mcg/actuation 2 Puff (PROVENTIL HFA, VENTOLIN HFA) 2 Puff INHALATION QID DATA: Diagnostic tests reviewed for today's visit: CBC: Recent Labs 11/04/20 0446 WBC 9.37 RBC 5.08 HB 14.1 HCT 42.5 PLT 205 MCV 83.7 MCH 27.8 MPV 11.9 BMP: Recent Labs 11/04/206 NA 138 K 4.2 CHLOR 106* CO2 22 BUN 13 CREAT 0.64* GLUC 206* CMP: Recent Labs 11/04/20445 NA 138 K 4.2 CHLOR 106* CO2 22 BUN 13 CREAT 0.64* GLUC 206* TPROT 5.7* CA 8.5 TBILI 0.4 ALKPHOS 76 ALT 52 AST 61* ANION 10 Liver Function, Amylase, Lipase: Recent Labs 11/04/20445 TPROT 5.7* ALB 3.3* ALT 52 AST 61* ALKPHOS 76 TBILI 0.4 Renal Panel: Recent Labs 11/04/20445 CREAT 0.64* BUN 13 GLUC 206* CA 8.5 CHLOR 106* K 4.2 CO2 22 NA 138 Estimated Creatinine Clearance: 202.6 mL/min (A) (based on SCr of 0.64 mg/dL (L)). Assessment/Plan 1. Acute hypoxic respiratory failure ?Continue supplemental oxygen ?Continues to be on 6 L of oxygen, however feels better every day ?Wean as tolerated ? 2. COVID-19 infection ?Continue remdesivir, dexamethasone ?Infectious disease service on board ?Monitor CRP, monitor liver enzymes ? 3. Presumed bacterial pneumonia ?Continue doxycycline, levofloxacin ?Monitor procalcitonin level, 0.11 today, decreased from 4 days ago Medication and Non-Pharmacologic VTE Prophylaxis/Anticoagula nts Anticoagulant AND Antiplatelet Medications (From admission, onward) Comment Start Dose Route Frequency Last Action Ordered Stop 11/01/20 1700 enoxaparin 40 mg injection (LOVENOX) (enoxaparin injection (LOVENOX)) 40 mg SUBCUTANEOUS EVERY 24 HOURS Given, 11/03 1718 11/01/20 1644 -- 11/01/20 1500 activity - mobilize patient ([place]) 10/31/20 1845 vte pharmacologic prophylaxis contraindicated (mn,oh) 10/31/20 1845 graduated compression stockings (mn,nc) Lines, Drains, and Airways Line Peripheral 11/02/20 1205 Short Left Forearm 2 days VTE Prophylaxis: Lovenox 40mg Sub Q Daily Disposition: Home Plan of care discussed with: Patient SIGNATURE: Gadiel Douglas MD PATIENT NAME: Charo Shukla DATE: November 04, 2020 TIME: 12:13 PM PAGER/CONTACT #: Team color pager Disclaimer: Portions of this note may have been generated using [employer] voice recognition software. Reasonable efforts were made to correct any dictation errors that resulted due to the programming of this software but some may still be present. Please note, the time of this note does not reflect the time I saw this patient today, but the time of this documentation. Normal [facility] Bilirub Conj SerPl-mCncon Bilirubin.conjugate d [Mass/Vol] mg/dL Normal <0.2 [facility] Comment on above: Order Comment: Speci men Type: BLOOD SPECIMEN Performed By: #### 2 4323-8, 61282-6 #### [facility] CLIA [id number] [address] [place] [address] CBC W Auto Diff [place] 2020 Basophils (Bld) [#/Vol] 0.05 10*3/uL Normal <0.11 [facility] Comment on above: Order Comment: Speci men Type: BLOOD SPECIMEN Result Comment: Diff erential confirmed by visual scan of peripheral blood smear slide Performed By: #### F ERR, 1987-11 #### [facility] CLIA [id number] [address] [place] [address] Basophils/100 WBC (Bld) 0.6 % Normal [facility] Comment on above: Order Comment: Speci men Type: BLOOD SPECIMEN Performed By: #### F ERR, 1987-11 #### [facility] CLIA [id number] [address] [place] [address] Differential cell count method Nom (Bld) Auto Normal [facility] Comment on above: Order Comment: Speci men Type: BLOOD SPECIMEN Performed By: #### F [id number] #### [facility] CLIA [id number] [address] [place] [address] Eosinophils (Bld) [#/Vol] 10*3/uL Normal <0.46 [facility] Comment on above: Order Comment: Speci men Type: BLOOD SPECIMEN Performed By: #### F GEOVANI1987-11 #### [facility] CLIA [id number] [address] [place] [address] Eosinophils/100 WBC (Bld) 0.0 % Normal [facility] Comment on above: Order Comment: Speci men Type: BLOOD SPECIMEN Performed By: #### F GEOVANI1987-11 #### [facility] CLIA [id number] [address] [place] [address] Erythrocyte distribution width (RBC) [Ratio] 13.4 % Normal 11.5-15.0 [facility] Comment on above: Order Comment: Speci men Type: BLOOD SPECIMEN Performed By: #### GEOVANI1987-11 #### [facility] CLIA [id number] [address] [place] [address] Hematocrit (Bld) [Volume fraction] 46.9 % Normal 39.0-51.0 [facility] Comment on above: Order Comment: Speci men Type: BLOOD SPECIMEN Performed By: #### GEOVANI1987-11 #### [facility] CLIA [id number] [address] [place] [address] Hemoglobin (Bld) [Mass/Vol] 15.3 g/dL Normal 13.0-17.0 [facility] Comment on above: Order Comment: Speci men Type: BLOOD SPECIMEN Performed By: #### GEOVANI1987-11 #### [facility] CLIA [id number] [address] [place] [address] IMMATURE GRAN % 3.9 % Normal [facility] Comment on above: Order Comment: Speci men Type: BLOOD SPECIMEN Performed By: #### GEOVANI1987-11 #### [facility] CLIA [id number] [address] [place] [address] IMMATURE GRAN ABS 0.34 k/uL High <0.10 [facility] Comment on above: Order Comment: Speci men Type: BLOOD SPECIMEN Performed By: #### Janet GEOVANI1987-11 #### [facility] CLIA [id number] [address] [place] [address] Lymphocytes (Bld) [#/Vol] 1.55 10*3/uL Normal 1.00-4.00 [facility] Comment on above: Order Comment: Speci men Type: BLOOD SPECIMEN Performed By: #### GEOVANI1987-11 #### [facility] CLIA [id number] [address] [place] [address] Lymphocytes/100 WBC (Bld) 17.8 % Normal [facility] Comment on above: Order Comment: Speci men Type: BLOOD SPECIMEN Performed By: #### GEOVANI1987-11 #### [facility] CLIA [id number] [address] [place] [address] MCH (RBC) [Entitic mass] 28.3 pg Normal 26.0-34.0 [facility] Comment on above: Order Comment: Speci men Type: BLOOD SPECIMEN Performed By: #### GEOVANI1987-11 #### [facility] CLIA [id number] [address] [place] [address] MCHC (RBC) [Mass/Vol] 32.6 g/dL Normal 30.5-36.0 [facility] Comment on above: Order Comment: Speci men Type: BLOOD SPECIMEN Performed By: #### GEOVANI1987-11 #### [facility] CLIA [id number] [address] [place] [address] MCV (RBC) [Entitic vol] 86.9 fL Normal 80.0-100.0 [facility] Comment on above: Order Comment: Speci men Type: BLOOD SPECIMEN Performed By: #### GEOVANI1987-11 #### [facility] CLIA [id number] [address] [place] [address] Monocytes (Bld) [#/Vol] 0.78 10*3/uL Normal <0.87 [facility] Comment on above: Order Comment: Speci men Type: BLOOD SPECIMEN Performed By: #### F GEOVANI1987-11 #### [facility] CLIA [id number] [address] [place] [address] Monocytes/100 WBC (Bld) 9.0 % Normal [facility] Comment on above: Order Comment: Speci men Type: BLOOD SPECIMEN Performed By: #### GEOVANI1987-11 #### [facility] CLIA [id number] [address] [place] [address] Neutrophils (Bld) [#/Vol] 5.97 10*3/uL Normal 1.45-7.50 [facility] Comment on above: Order Comment: Speci men Type: BLOOD SPECIMEN Performed By: #### F GEOVANI1987-11 #### [facility] CLIA [id number] [address] [place] [address] Neutrophils/100 WBC (Bld) 68.7 % Normal [facility] Comment on above: Order Comment: Speci men Type: BLOOD SPECIMEN Performed By: #### 1987-11 #### [facility] CLIA [id number] [address] [place] [address] Nucleated RBC (Bld) [#/Vol] 10*3/uL Normal <0.01 [facility] Comment on above: Order Comment: Speci men Type: BLOOD SPECIMEN Performed By: #### GEOVANI1987-11 #### [facility] CLIA [id number] [address] [place] [address] Nucleated RBC/100 WBC (Bld) [Ratio] 0.0 /[address] [facility] Comment on above: Order Comment: Speci men Type: BLOOD SPECIMEN Performed By: #### GEOVANI1987-11 #### [facility] CLIA [id number] [address] [place] [address] Platelet mean volume (Bld) [Entitic vol] 11.8 fL Normal 9.0-12.7 [facility] Comment on above: Order Comment: Speci men Type: BLOOD SPECIMEN Performed By: #### F ERR, 1987-11 #### [facility] CLIA [id number] [address] [place] [address] Platelets (Bld) [#/Vol] 200 10*3/uL Normal 150-400 [facility] Comment on above: Order Comment: Speci men Type: BLOOD SPECIMEN Performed By: #### Janet GEOVANI, 1987-11 #### [facility] LAB[facility]ATORY CLIA [id number] [address] [place] [address] RBC (Bld) [#/Vol] 5.40 10*6/uL Normal 4.20-6.00 [facility] Comment on above: Order Comment: Speci men Type: BLOOD SPECIMEN Performed By: #### Janet GEOVANI, 1985-11 #### [facility] CLIA [id number] [address] [place] [address] WBC (Bld) [#/Vol] 8.69 10*3/uL Normal 3.70-11.00 [facility] Comment on above: Order Comment: Speci men Type: BLOOD SPECIMEN Performed By: #### Janet GEOVANI, 1985-11 #### [facility] CLIA [id number] [address] [place] [address] Comp Metab 2000 Pnl SerPlon 11-03-2020 Albumin [Mass/Vol] 3.6 g/dL Low 3.9-4.9 [facility] Comment on above: Order Comment: Speci men Type: BLOOD SPECIMEN Performed By: #### 2 4323-8, 04464-8 #### [facility] CLIA [id number] [address] [place] [address] ALP [Catalytic activity/Vol] 75 U/L Normal 38-113 [facility] Comment on above: Order Comment: Speci men Type: BLOOD SPECIMEN Performed By: #### 2 4323-8, 57436-1 #### [facility] CLIA [id number] [address] [place] [address] ALT With P-5'-P [Catalytic activity/Vol] 47 U/L Normal 10-54 [facility] Comment on above: Order Comment: Speci men Type: BLOOD SPECIMEN Performed By: #### 2 4323-8, 54041-0 #### [facility] CLIA [id number] [address] [place] [address] Anion gap [Moles/Vol] 11 mmol/L Normal 9-18 [facility] Comment on above: Order Comment: Speci men Type: BLOOD SPECIMEN Performed By: #### 2 4323-8, 01610-9 #### [facility] CLIA [id number] [address] [place] [address] AST With P-5'-P [Catalytic activity/Vol] 66 U/L High 14-40 [facility] Comment on above: Order Comment: Speci men Type: BLOOD SPECIMEN Performed By: #### 2 3-8, 75499-2 #### [facility] CLIA [id number] [address] [place] [address] Bilirubin [Mass/Vol] 0.4 mg/dL Normal 0.2-1.3 [facility] Comment on above: Order Comment: Speci men Type: BLOOD SPECIMEN Performed By: #### 2 3-8, 09371-3 #### [facility] CLIA [id number] [address] [place] [address] Calcium [Mass/Vol] 9.1 mg/dL Normal 8.5-10.2 [facility] Comment on above: Order Comment: Speci men Type: BLOOD SPECIMEN Performed By: #### 2 3-8, 91355-5 #### [facility] CLIA [id number] [address] [place] [address] Chloride [Moles/Vol] 107 mmol/L High 97-105 [facility] Comment on above: Order Comment: Speci men Type: BLOOD SPECIMEN Performed By: #### 2 4323-8, 88393-8 #### [facility] CLIA [id number] [address] [place] [address] CO2 [Moles/Vol] 23 mmol/L Normal 22-30 [facility] Comment on above: Order Comment: Speci men Type: BLOOD SPECIMEN Performed By: #### 2 4323-8, 71567-7 #### [facility] CLIA [id number] [address] [place] [address] Creatinine [Mass/Vol] 0.73 mg/dL Normal 0.73-1.22 [facility] Comment on above: Order Comment: Speci men Type: BLOOD SPECIMEN Performed By: #### 2 4323-8, 15995-8 #### [facility] CLIA [id number] [address] [place] [address] GFR/1.73 sq M.predicted MDRD (S/P/Bld) [Vol rate/Area] mL/min/{1.73_m2} Normal [facility] Comment on above: Order Comment: Speci men Type: BLOOD SPECIMEN Result Comment: >60 eGFR (Estimated GFR) Units of measure: mL/min/1.73 meters squared eGFR is derived from the reexpressed MDRD Study equation using the following parameters: serum creatinine, age, gender and race. The creatinine assay has been calibrated to be traceable to IDMS. An eGFR <60 mL/min/1.73m2 for >3 months is consistent with chronic kidney disease. Refer to KDOQI guidelines for clinical interpretation. In patients with unstable renal function, e.g. those with acute kidney injury, the eGFR may not accurately reflect actual GFR. Performed By: #### 2 4323-8, 40453-7 #### [facility] CLIA [id number] [address] [place] [address] Glucose [Mass/Vol] 161 mg/dL High 74-99 [facility] Comment on above: Order Comment: Speci men Type: BLOOD SPECIMEN Result Comment: The [place] Diabetes Association (ADA) provides guidance for cutoff values for fasting glucose and random glucose. The ADA defines fasting as no caloric intake for at least 8 hours. Fasting plasma glucose results between 100 to 125 mg/dL indicate increased risk for diabetes (prediabetes). Fasting plasma glucose results greater than or equal to 126 mg/dL meet the criteria for diagnosis of diabetes. In the absence of unequivocal hyperglycemia, results should be confirmed by repeat testing. In a patient with classic symptoms of hyperglycemia or hyperglycemic crisis, random plasma glucose results greater than or equal to 200 mg/dL meet the criteria for diagnosis of diabetes. Reference: Standards of Medical Care in Diabetes 2016, [place] [employer]. Diabetes Care. 2016.39(Suppl 1). Performed By: #### 2 4323-8, 97965-3 #### [facility] CLIA [id number] [address] [place] [address] Potassium [Moles/Vol] 4.2 mmol/L Normal 3.7-5.1 [facility] Comment on above: Order Comment: Speci men Type: BLOOD SPECIMEN Performed By: #### 2 4323-8, 84404-5 #### [facility] CLIA [id number] [address] [place] [address] Protein [Mass/Vol] 6.2 g/dL Low 6.3-8.0 [facility] Comment on above: Order Comment: Speci men Type: BLOOD SPECIMEN Performed By: #### 2 4323-8, 24335-3 #### [facility] CLIA [id number] [address] [place] [address] Sodium [Moles/Vol] 141 mmol/L Normal 136-144 [facility] Comment on above: Order Comment: Speci men Type: BLOOD SPECIMEN Performed By: #### 2 4323-8, 00309-4 #### [facility] CLIA [id number] [address] [place] [address] Urea nitrogen [Mass/Vol] 16 mg/dL Normal 9-24 [facility] Comment on above: Order Comment: Speci men Type: BLOOD SPECIMEN Performed By: #### 2 4323-8, 09368-9 #### [facility] CLIA [id number] [address] [place] [address] PROGRESSon 11-03-2020 PROGRESS HNO ID: [id number] Author: Gadiel Douglas MD Service: General Internal Medicine Author Type: Physician Type: Progress Notes Filed: 11/03/2020 11:18 AM Note Text: DEPARTMENT OF HOSPITAL MEDICINE PROGRESS NOTE SERVICE DATE: 11/03/2020 SERVICE TIME: 10:41 AM Hospital Medicine/Primary Attending: Gadiel Douglas MD NIGHT AND WEEKEND COVERAGE: After 7pm please page [phone] SUBJECTIVE: Pt seen and examined. Continues to have cough with clear sputum, feels it is loosening up. Gets short of breath on ambulation. Remains on 6 L of oxygen. OBJECTIVE: PHYSICAL EXAM: BP 117/72 Pulse 62 Temp (Src) 97.7 (Oral) Resp 18 Ht 5' 8 (1.73m) Wt 229 lb 4.5 oz (104.0kg) SpO2 92% BMI 34.87 kg/(m2). O2 Therapy: Nasal Cannula, Liters: 6 General - AANDOx3, NAD, Calm CV - RRR S1 S2 RESP - CTA B/L No wheezes, ronchi, rales ABD - soft, NT, ND +BS EXT - no edema NEURO - CN II-XII grossly intact, no focal deficits MEDICATIONS: Current Facility-Administered Medications Medication Dose Route Frequency - doxycycline 100 mg in D5W 250 mL Vial-Mate (VIBRAMYCIN) 100 mg INTRAVENOUS q 12 H - remdesivir 100 mg in NaCl 0.9% 250 mL 100 mg INTRAVENOUS q 24 HR And - sodium chloride 0.9 % (flush) 30 mL (BD POSIFLUSH) 30 mL INTRAVENOUS q 24 HR - dexAMETHasone 6 mg tab(s) (DECADRON) 6 mg ORAL DAILY - aluminum-magnesium hydroxide-simethicone 200-200-20 mg/5 mL 30 mL (MAALOX,MYLANTA,MAG-AL PLUS) 30 mL ORAL DAILY PRN - ondansetron 4 mg tab(s) (ZOFRAN) 4 mg ORAL q 6 H PRN Or - ondansetron (PF) 4 mg injection (ZOFRAN) 4 mg INTRAVENOUS q 6 H PRN - magnesium hydroxide 400 mg/5 mL 30 mL (MOM) 30 mL ORAL DAILY PRN - docusate sodium 100 mg cap(s) (COLACE) 100 mg ORAL BID PRN - bisacodyl 10 mg suppository (DULCOLAX) 10 mg RECTAL DAILY PRN - acetaminophen 650 mg tab(s) (TYLENOL) 650 mg ORAL q 6 H PRN - guaiFENesin 600 mg ER tab(s) (MUCINEX) 600 mg ORAL q 12 H PRN - diphenhydrAMINE 25 mg injection (BENADRYL) 25 mg INTRAVENOUS DAILY - levoFLOXacin iv piggyback 750 mg in D5W 150 mL (LEVAQUIN) 750 mg INTRAVENOUS DAILY - enoxaparin 40 mg injection (LOVENOX) 40 mg SUBCUTANEOUS q 24 HR - albuterol HFA 90 mcg/actuation 2 Puff (PROVENTIL HFA, VENTOLIN HFA) 2 Puff INHALATION QID DATA: Diagnostic tests reviewed for today's visit: CBC: Recent Labs 11/03/20517 WBC 8.69 RBC 5.40 HB 15.3 HCT 46.9 PLT 200 MCV 86.9 MCH 28.3 MPV 11.8 Coags: Recent Labs 11/03/20517 INR 1.1 BMP: Recent Labs 11/03/20517 NA 141 K 4.2 CHLOR 107* CO2 23 BUN 16 CREAT 0.73 GLUC 161* CMP: Recent Labs 11/03/20517 NA 141 K 4.2 CHLOR 107* CO2 23 BUN 16 CREAT 0.73 GLUC 161* TPROT 6.2* CA 9.1 TBILI 0.4 ALKPHOS 75 ALT 47 AST 66* ANION 11 Liver Function, Amylase, Lipase: Recent Labs 11/03/20517 TPROT 6.2* ALB 3.6* ALT 47 AST 66* ALKPHOS 75 TBILI 0.4 Renal Panel: Recent Labs 11/03/20517 CREAT 0.73 BUN 16 GLUC 161* CA 9.1 CHLOR 107* K 4.2 CO2 23 NA 141 Heme: Recent Labs 11/02/20 1728 ZOYA 751.9* Estimated Creatinine Clearance: 177.6 mL/min (based on SCr of 0.73 mg/dL). Assessment/Plan 1. Acute hypoxic respiratory failure ?Continue supplemental oxygen ?Wean as tolerated ? 2. COVID-19 infection ?Continue remdesivir, dexamethasone ?Infectious disease service on board ?Monitor CRP, monitor liver enzymes while on remdesivir ? 3. Presumed bacterial pneumonia ?Continue doxycycline, levofloxacin ?Monitor procalcitonin level ? 4. Dark stool ?Hemoglobin and hematocrit stable ?Continue to monitor Medication and Non-Pharmacologic VTE Prophylaxis/Anticoagula nts Anticoagulant AND Antiplatelet Medications (From admission, onward) Comment Start Dose Route Frequency Last Action Ordered Stop 11/01/20 1700 enoxaparin 40 mg injection (LOVENOX) (enoxaparin injection (LOVENOX)) 40 mg SUBCUTANEOUS EVERY 24 HOURS Given, 11/02 1722 11/01/20 1644 -- 11/01/20 1500 activity - mobilize patient (mn,nc) 10/31/20 184 vte pharmacologic prophylaxis contraindicated (mn,oh) 10/31/20 1845 graduated compression stockings (mn,oh) Lines, Drains, and Airways Line Peripheral 11/02/20 1205 Short Left Forearm <1 day VTE Prophylaxis: Lovenox 40mg Sub Q Daily Disposition: Home Plan of care discussed with: Patient SIGNATURE: Gadiel Douglas MD PATIENT NAME: Charo Shukla DATE: November 03, 2020 TIME: 10:41 AM PAGER/CONTACT #: Team color pager Disclaimer: Portions of this note may have been generated using [employer] voice recognition software. Reasonable efforts were made to correct any dictation errors that resulted due to the programming of this software but some may still be present. Please note, the time of this note does not reflect the time I saw this patient today, but the time of this documentation. Normal [facility] PT Pnl PPPon 11-03-2020 INR Coag (PPP) [Relative time] 1.1 {INR} Normal 0.9-1.3 [facility] Comment on above: Order Comment: Speci men Type: BLOOD SPECIMEN Result Comment: Milagros min K Antagonist (VKA) Therapeutic Range: INR 2 to 3 (Target INR of 2.5) Note: For patients treated with VKA drugs, such as warfarin, the [place] [employer] 2012 Guideline recommends a therapeutic INR range of 2 to 3 (target INR of 2.5). This recommendation includes high-risk patients with antiphospholipid syndrome with previous arterial or venous thromboembolism, current-generation mechanical or bioprosthetic aortic heart valve replacement. Note: Patients with mechanical aortic valve replacement and additional risk factors for thromboembolic events (atrial fibrillation, previous thromboembolism, LV dysfunction, hypercoagulable conditions) or an older generation mechanical AVR (i.e., ball in-Cage) or any mechanical MVR should have a INR therapeutic range of 2.5 to 3.5 (target INR of 3). Nikky GH, et al. Chest 2012, 141:7S-47S Tiara RA, et al. JACC 2017, 70: 252-289 Performed By: #### F ERR, 1985- #### [facility] CLIA [id number] [address] [place] [address] PT Coag (PPP) [Time] 11.6 s Normal 9.7-13.0 [facility] Comment on above: Order Comment: Speci men Type: BLOOD SPECIMEN Performed By: #### Janet GEOVANI, 1985-11 #### [facility] CLIA [id number] [address] [place] [address] Bilirub Conj SerPl-mCncon Bilirubin.conjugate d [Mass/Vol] mg/dL Normal <0.2 [facility] Comment on above: Order Comment: Speci men Type: BLOOD SPECIMEN Performed By: #### Janet GEOVANI, 1985-11 #### [facility] CLIA [id number] [address] [place] [address] CBC W Auto Diff [place] 2020 Basophils (Bld) [#/Vol] 10*3/uL Normal <0.11 [facility] Comment on above: Order Comment: Speci men Type: BLOOD SPECIMEN Result Comment: Diff erential confirmed by visual scan of peripheral blood smear slide Performed By: #### Janet GEOVANI, 1985-11 #### [facility] CLIA [id number] [address] [place] [address] Basophils/100 WBC (Bld) 0.4 % Normal [facility] Comment on above: Order Comment: Speci men Type: BLOOD SPECIMEN Performed By: #### Janet GEOVANI1987-11 #### [facility] CLIA [id number] [address] [place] [address] Differential cell count method Nom (Bld) Auto Normal [facility] Comment on above: Order Comment: Speci men Type: BLOOD SPECIMEN Performed By: #### Janet GEOVANI1987-11 #### [facility] CLIA [id number] [address] [place] [address] Eosinophils (Bld) [#/Vol] 10*3/uL Normal <0.46 [facility] Comment on above: Order Comment: Speci men Type: BLOOD SPECIMEN Performed By: #### Janet GEOVANI1987-11 #### [facility] CLIA [id number] [address] [place] [address] Eosinophils/100 WBC (Bld) 0.0 % Normal [facility] Comment on above: Order Comment: Speci men Type: BLOOD SPECIMEN Performed By: #### 1987-11 #### [facility] CLIA [id number] [address] [place] [address] Erythrocyte distribution width (RBC) [Ratio] 13.3 % Normal 11.5-15.0 [facility] Comment on above: Order Comment: Speci men Type: BLOOD SPECIMEN Performed By: #### 1987-11 #### [facility] CLIA [id number] [address] [place] [address] Hematocrit (Bld) [Volume fraction] 45.9 % Normal 39.0-51.0 [facility] Comment on above: Order Comment: Speci men Type: BLOOD SPECIMEN Performed By: #### 1987-11 #### [facility] CLIA [id number] [address] [place] [address] Hemoglobin (Bld) [Mass/Vol] 14.8 g/dL Normal 13.0-17.0 [facility] Comment on above: Order Comment: Speci men Type: BLOOD SPECIMEN Performed By: #### 1987-11 #### [facility] CLIA [id number] [address] [place] [address] IMMATURE GRAN % 2.7 % Normal [facility] Comment on above: Order Comment: Speci men Type: BLOOD SPECIMEN Performed By: #### 1987-11 #### Scheduling Employee Scheduling [facility] CLIA [id number] [address] [place] [address] IMMATURE GRAN ABS 0.13 k/uL High <0.10 [facility] Comment on above: Order Comment: Speci men Type: BLOOD SPECIMEN Performed By: #### 1987-11 #### [facility] CLIA [id number] [address] [place] [address] Lymphocytes (Bld) [#/Vol] 1.18 10*3/uL Normal 1.00-4.00 [facility] Comment on above: Order Comment: Speci men Type: BLOOD SPECIMEN Performed By: #### GEOVANI1987-11 #### [facility] CLIA [id number] [address] [place] [address] Lymphocytes/100 WBC (Bld) 24.6 % Normal [facility] Comment on above: Order Comment: Speci men Type: BLOOD SPECIMEN Performed By: #### Janet GEOVANI1987-11 #### [facility] CLIA [id number] [address] [place] [address] MCH (RBC) [Entitic mass] 28.0 pg Normal 26.0-34.0 [facility] Comment on above: Order Comment: Speci men Type: BLOOD SPECIMEN Performed By: #### GEOVANI1987-11 #### [facility] CLIA [id number] [address] [place] [address] MCHC (RBC) [Mass/Vol] 32.2 g/dL Normal 30.5-36.0 [facility] Comment on above: Order Comment: Speci men Type: BLOOD SPECIMEN Performed By: #### GEOVANI1987-11 #### [facility] CLIA [id number] [address] [place] [address] MCV (RBC) [Entitic vol] 86.8 fL Normal 80.0-100.0 [facility] Comment on above: Order Comment: Speci men Type: BLOOD SPECIMEN Performed By: #### GEOVANI1987-11 #### [facility] CLIA [id number] [address] [place] [address] Monocytes (Bld) [#/Vol] 0.42 10*3/uL Normal <0.87 [facility] Comment on above: Order Comment: Speci men Type: BLOOD SPECIMEN Performed By: #### GEOVANI1987-11 #### [facility] CLIA [id number] [address] [place] [address] Monocytes/100 WBC (Bld) 8.8 % Normal [facility] Comment on above: Order Comment: Speci men Type: BLOOD SPECIMEN Performed By: #### GEOVANI1987-11 #### [facility] CLIA [id number] [address] [place] [address] Neutrophils (Bld) [#/Vol] 3.04 10*3/uL Normal 1.45-7.50 [facility] Comment on above: Order Comment: Speci men Type: BLOOD SPECIMEN Performed By: #### Janet GEOVANI, 1987-11 #### [facility] CLIA [id number] [address] [place] [address] Neutrophils/100 WBC (Bld) 63.5 % Normal [facility] Comment on above: Order Comment: Speci men Type: BLOOD SPECIMEN Performed By: #### F GEOVANI1987-11 #### [facility] CLIA [id number] [address] [place] [address] Nucleated RBC (Bld) [#/Vol] 10*3/uL Normal <0.01 [facility] Comment on above: Order Comment: Speci men Type: BLOOD SPECIMEN Performed By: #### Janet GEOVANI1987-11 #### [facility] CLIA [id number] [address] [place] [address] Nucleated RBC/100 WBC (Bld) [Ratio] 0.0 /[address] [facility] Comment on above: Order Comment: Speci men Type: BLOOD SPECIMEN Performed By: #### GEOVANI1987-11 #### [facility] CLIA [id number] [address] [place] [address] Platelet mean volume (Bld) [Entitic vol] 11.4 fL Normal 9.0-12.7 [facility] Comment on above: Order Comment: Speci men Type: BLOOD SPECIMEN Performed By: #### GEOVANI1987-11 #### [facility] CLIA [id number] [address] [place] [address] Platelets (Bld) [#/Vol] 176 10*3/uL Normal 150-400 [facility] Comment on above: Order Comment: Speci men Type: BLOOD SPECIMEN Performed By: #### GEOVANI1987-11 #### [facility] CLIA [id number] [address] [place] [address] RBC (Bld) [#/Vol] 5.29 10*6/uL Normal 4.20-6.00 [facility] Comment on above: Order Comment: Speci men Type: BLOOD SPECIMEN Performed By: #### GEOVANI1987-11 #### [facility] CLIA [id number] [address] [place] [address] WBC (Bld) [#/Vol] 4.79 10*3/uL Normal 3.70-11.00 [facility] Comment on above: Order Comment: Speci men Type: BLOOD SPECIMEN Performed By: #### F GEOVANI, 1987-11 #### [facility] CLIA [id number] [address] [place] [address] CRP SerPl-mCncon 11-02-2020 CRP [Mass/Vol] 4.5 mg/dL High <0.9 [facility] Comment on above: Order Comment: Speci men Type: BLOOD SPECIMEN Performed By: #### F GEOVANI1987-11 #### [facility] CLIA [id number] [address] [place] [address] Comp Metab 2000 Pnl SerPlon 11-02-2020 Albumin [Mass/Vol] 3.7 g/dL Low 3.9-4.9 [facility] Comment on above: Order Comment: Speci men Type: BLOOD SPECIMEN Performed By: #### F GEOVANI1987-11 #### [facility] CLIA [id number] [address] [place] [address] ALP [Catalytic activity/Vol] 79 U/L Normal 38-113 [facility] Comment on above: Order Comment: Speci men Type: BLOOD SPECIMEN Performed By: #### GEOVANI1987-11 #### [facility] CLIA [id number] [address] [place] [address] ALT With P-5'-P [Catalytic activity/Vol] 48 U/L Normal 10-54 [facility] Comment on above: Order Comment: Speci men Type: BLOOD SPECIMEN Performed By: #### GEOVANI1987-11 #### [facility] CLIA [id number] [address] [place] [address] Anion gap [Moles/Vol] 11 mmol/L Normal 9-18 [facility] Comment on above: Order Comment: Speci men Type: BLOOD SPECIMEN Performed By: #### GEOVANI1987-11 #### [facility] CLIA [id number] [address] [place] [address] AST With P-5'-P [Catalytic activity/Vol] 82 U/L High 14-40 [facility] Comment on above: Order Comment: Speci men Type: BLOOD SPECIMEN Performed By: #### Janet GEOVANI1987-11 #### [facility] CLIA [id number] [address] [place] [address] Bilirubin [Mass/Vol] 0.4 mg/dL Normal 0.2-1.3 [facility] Comment on above: Order Comment: Speci men Type: BLOOD SPECIMEN Performed By: #### GEOVANI1987-11 #### [facility] CLIA [id number] [address] [place] [address] Calcium [Mass/Vol] 8.8 mg/dL Normal 8.5-10.2 [facility] Comment on above: Order Comment: Speci men Type: BLOOD SPECIMEN Performed By: #### GEOVANI1987-11 #### [facility] CLIA [id number] [address] [place] [address] Chloride [Moles/Vol] 106 mmol/L High 97-105 [facility] Comment on above: Order Comment: Speci men Type: BLOOD SPECIMEN Performed By: #### GEOVANI1987-11 #### [facility] CLIA [id number] [address] [place] [address] CO2 [Moles/Vol] 26 mmol/L Normal 22-30 [facility] Comment on above: Order Comment: Speci men Type: BLOOD SPECIMEN Performed By: #### GEOVANI1987-11 #### [facility] CLIA [id number] [address] [place] [address] Creatinine [Mass/Vol] 0.75 mg/dL Normal 0.73-1.22 [facility] Comment on above: Order Comment: Speci men Type: BLOOD SPECIMEN Performed By: #### Janet OLIVO1987-11 #### [facility] CLIA [id number] [address] [place] [address] GFR/1.73 sq M.predicted MDRD (S/P/Bld) [Vol rate/Area] mL/min/{1.73_m2} Normal [facility] Comment on above: Order Comment: Speci men Type: BLOOD SPECIMEN Result Comment: >60 eGFR (Estimated GFR) Units of measure: mL/min/1.73 meters squared eGFR is derived from the reexpressed MDRD Study equation using the following parameters: serum creatinine, age, gender and race. The creatinine assay has been calibrated to be traceable to IDMS. An eGFR <60 mL/min/1.73m2 for >3 months is consistent with chronic kidney disease. Refer to KDOQI guidelines for clinical interpretation. In patients with unstable renal function, e.g. those with acute kidney injury, the eGFR may not accurately reflect actual GFR. Performed By: #### F ERR, 1987-11 #### [facility] CLIA [id number] [address] [place] [address] Glucose [Mass/Vol] 146 mg/dL High 74-99 [facility] Comment on above: Order Comment: Speci men Type: BLOOD SPECIMEN Result Comment: The [place] [employer] (ADA) provides guidance for cutoff values for fasting glucose and random glucose. The ADA defines fasting as no caloric intake for at least 8 hours. Fasting plasma glucose results between 100 to 125 mg/dL indicate increased risk for diabetes (prediabetes). Fasting plasma glucose results greater than or equal to 126 mg/dL meet the criteria for diagnosis of diabetes. In the absence of unequivocal hyperglycemia, results should be confirmed by repeat testing. In a patient with classic symptoms of hyperglycemia or hyperglycemic crisis, random plasma glucose results greater than or equal to 200 mg/dL meet the criteria for diagnosis of diabetes. Reference: Standards of Medical Care in Diabetes 2016, [place] [employer]. Diabetes Care. 2016.39(Suppl 1). Performed By: #### F ERR, 1985-11 #### [facility] CLIA [id number] [address] [place] [address] Potassium [Moles/Vol] 3.4 mmol/L Low 3.7-5.1 [facility] Comment on above: Order Comment: Speci men Type: BLOOD SPECIMEN Performed By: #### F ERR, 1985-11 #### [facility] CLIA [id number] [address] [place] [address] Protein [Mass/Vol] 6.5 g/dL Normal 6.3-8.0 [facility] Comment on above: Order Comment: Speci men Type: BLOOD SPECIMEN Performed By: #### Janet GEOVANI, 1985-11 #### [facility] CLIA [id number] [address] [place] [address] Sodium [Moles/Vol] 143 mmol/L Normal 136-144 [facility] Comment on above: Order Comment: Speci men Type: BLOOD SPECIMEN Performed By: #### Janet GEOVANI, 1985-11 #### [facility] CLIA [id number] [address] [place] [address] Urea nitrogen [Mass/Vol] 12 mg/dL Normal 9-24 [facility] Comment on above: Order Comment: Speci men Type: BLOOD SPECIMEN Performed By: #### Janet GEOVANI, 1985-11 #### [facility] CLIA [id number] [address] [place] [address] D dimer FEU PPP-mCncon 11-02 Fibrin D-dimer FEU (PPP) [Mass/Vol] 420 ng/mL FEU Normal <500 [facility] Comment on above: Order Comment: Speci men Type: BLOOD SPECIMEN Performed By: #### Janet GEOVANI1987-11 #### [facility] CLIA [id number] [address] [place] [address] FERRITIN BLDon 11-02-2020 Ferritin [Mass/Vol] 751.9 ng/mL High 30.3-565.7 [facility] Comment on above: Order Comment: Speci men Type: BLOOD SPECIMEN Performed By: #### Janet GEOVANI, 1985-11 #### [facility] CLIA [id number] [address] [place] [address] PLAN OF CAREon 11-02-2020 PLAN OF CARE HNO ID: [id number] Author: Warren Melo Service: Infectious Disease Author Type: Physician Type: Plan of Care Filed: 11/02/2020 5:30 PM Note Text: ID Patient's fevers are down, and is on doxycycline and levofloxacin for presumptive bacterial pneumonia with a high PCT. Nasal cannula oxygen needs fluctuating between 3 and 6 Continue 5 days remdesivir if liver enzymes tolerate and the antibacterial agents hopefully for just 7 days Warren Melo MD 11/02/2020 5:[phone] [facility] PROGRESSon 11-02-2020 PROGRESS HNO ID: [id number] Author: Gadiel Douglas MD Service: General Internal Medicine Author Type: Physician Type: Progress Notes Filed: 11/02/2020 3:03 PM Note Text: DEPARTMENT OF HOSPITAL MEDICINE PROGRESS NOTE SERVICE DATE: 11/02/2020 SERVICE TIME: 3:01 PM Hospital Medicine/Primary Attending: Gadiel Douglas MD NIGHT AND WEEKEND COVERAGE: After 7pm please page [phone] SUBJECTIVE: Pt seen and examined. On 6 L of oxygen. Reports shortness of breath, especially on exertion. OBJECTIVE: PHYSICAL EXAM: BP 114/74 Pulse 73 Temp (Src) 97.7 (Oral) Resp 20 Ht 5' 8 (1.73m) Wt 229 lb 4.5 oz (104.0kg) SpO2 92% BMI 34.87 kg/(m2). O2 Therapy: Nasal Cannula, Liters: 6 General - AANDOx3, NAD, Calm CV - RRR S1 S2, No M/R/G RESP - CTA B/L No wheezes, ronchi, rales ABD - soft, NT, ND +BS EXT - no gross joint deformity, no clubbing, cyanosis, edema NEURO - CN II-XII grossly intact, no focal deficits MEDICATIONS: Current Facility-Administered Medications Medication Dose Route Frequency - doxycycline 100 mg in D5W 250 mL Vial-Mate (VIBRAMYCIN) 100 mg INTRAVENOUS q 12 H - remdesivir 100 mg in NaCl 0.9% 250 mL 100 mg INTRAVENOUS q 24 HR And - sodium chloride 0.9 % (flush) 30 mL (BD POSIFLUSH) 30 mL INTRAVENOUS q 24 HR - dexAMETHasone 6 mg tab(s) (DECADRON) 6 mg ORAL DAILY - aluminum-magnesium hydroxide-simethicone 200-200-20 mg/5 mL 30 mL (MAALOX,MYLANTA,MAG-AL PLUS) 30 mL ORAL DAILY PRN - ondansetron 4 mg tab(s) (ZOFRAN) 4 mg ORAL q 6 H PRN Or - ondansetron (PF) 4 mg injection (ZOFRAN) 4 mg INTRAVENOUS q 6 H PRN - magnesium hydroxide 400 mg/5 mL 30 mL (MOM) 30 mL ORAL DAILY PRN - docusate sodium 100 mg cap(s) (COLACE) 100 mg ORAL BID PRN - bisacodyl 10 mg suppository (DULCOLAX) 10 mg RECTAL DAILY PRN - acetaminophen 650 mg tab(s) (TYLENOL) 650 mg ORAL q 6 H PRN - guaiFENesin 600 mg ER tab(s) (MUCINEX) 600 mg ORAL q 12 H PRN - diphenhydrAMINE 25 mg injection (BENADRYL) 25 mg INTRAVENOUS DAILY - levoFLOXacin iv piggyback 750 mg in D5W 150 mL (LEVAQUIN) 750 mg INTRAVENOUS DAILY - enoxaparin 40 mg injection (LOVENOX) 40 mg SUBCUTANEOUS q 24 HR - albuterol HFA 90 mcg/actuation 2 Puff (PROVENTIL HFA, VENTOLIN HFA) 2 Puff INHALATION QID - potassium chloride ER 40 mEq tab(s) (K-DUR, KLOR-CON) 40 mEq ORAL ONCE DATA: Diagnostic tests reviewed for today's visit: CBC: Recent Labs 11/02/20439 WBC 4.79 RBC 5.29 HB 14.8 HCT 45.9 PLT 176 MCV 86.8 MCH 28.0 MPV 11.4 Coags: Recent Labs 11/02/20 0440 INR 1.1 BMP: Recent Labs 11/02/20 0440 NA 143 K 3.4* CHLOR 106* CO2 26 BUN 12 CREAT 0.75 GLUC 146* CMP: Recent Labs 11/02/20 0440 NA 143 K 3.4* CHLOR 106* CO2 26 BUN 12 CREAT 0.75 GLUC 146* TPROT 6.5 CA 8.8 TBILI 0.4 ALKPHOS 79 ALT 48 AST 82* ANION 11 Liver Function, Amylase, Lipase: Recent Labs 11/02/20 0440 TPROT 6.5 ALB 3.7* ALT 48 AST 82* ALKPHOS 79 TBILI 0.4 Renal Panel: Recent Labs 11/02/20 0440 CREAT 0.75 BUN 12 GLUC 146* CA 8.8 CHLOR 106* K 3.4* CO2 26 NA 143 Estimated Creatinine Clearance: 172.8 mL/min (based on SCr of 0.75 mg/dL). Assessment/Plan 1. Acute hypoxic respiratory failure ?Continue supplemental oxygen ?Wean as tolerated 2. COVID-19 infection ?Continue remdesivir, dexamethasone ?Infectious disease service on board, appreciate recommendations ?Monitor inflammatory markers ?Monitor liver enzymes 3. Presumed bacterial pneumonia ?Continue doxycycline, levofloxacin 4. Dark stool ?Hemoglobin and hematocrit stable ?Continue to monitor 5. Hypokalemia ?Replace and recheck levels Medication and Non-Pharmacologic VTE Prophylaxis/Anticoagula nts Anticoagulant AND Antiplatelet Medications (From admission, onward) Comment Start Dose Route Frequency Last Action Ordered Stop 11/01/20 1700 enoxaparin 40 mg injection (LOVENOX) (enoxaparin injection (LOVENOX)) 40 mg SUBCUTANEOUS EVERY 24 HOURS Given, 11/01 1705 11/01/20 1644 -- 11/01/20 1500 activity - mobilize patient ([place], [place]) 10/31/20 1845 vte pharmacologic prophylaxis contraindicated ([place]) 10/31/20 1845 graduated compression stockings ([place]) Lines, Drains, and Airways Line Peripheral 11/02/20 1205 Short Left Forearm <1 day VTE Prophylaxis: Lovenox 40mg Sub Q Daily Disposition: Home Plan of care discussed with: Patient SIGNATURE: Gadiel Douglas MD PATIENT NAME: Charo Shukla DATE: November 02, 2020 TIME: 3:01 PM PAGER/CONTACT #: Team color pager Disclaimer: Portions of this note may have been generated using [employer] voice recognition software. Reasonable efforts were made to correct any dictation errors that resulted due to the programming of this software but some may still be present. Please note, the time of this note does not reflect the time I saw this patient today, but the time of this documentation. Normal [facility] PT Pnl PPPon 11-02-2020 INR Coag (PPP) [Relative time] 1.1 {INR} Normal 0.9-1.3 [facility] Comment on above: Order Comment: Speci men Type: BLOOD SPECIMEN Result Comment: Milagros min K Antagonist (VKA) Therapeutic Range: INR 2 to 3 (Target INR of 2.5) Note: For patients treated with VKA drugs, such as warfarin, the [place] [employer] 2012 Guideline recommends a therapeutic INR range of 2 to 3 (target INR of 2.5). This recommendation includes high-risk patients with antiphospholipid syndrome with previous arterial or venous thromboembolism, current-generation mechanical or bioprosthetic aortic heart valve replacement. Note: Patients with mechanical aortic valve replacement and additional risk factors for thromboembolic events (atrial fibrillation, previous thromboembolism, LV dysfunction, hypercoagulable conditions) or an older generation mechanical AVR (i.e., ball in-Cage) or any mechanical MVR should have a INR therapeutic range of 2.5 to 3.5 (target INR of 3). Nikky GH, et al. Chest 2012, 141:7S-47S Tiara RA, et al. [facility] 2017, 70: 252-289 Performed By: #### F ERR, 1985-11 #### [facility] CLIA [id number] [address] [place] [address] PT Coag (PPP) [Time] 11.3 s Normal 9.7-13.0 [facility] Comment on above: Order Comment: Speci men Type: BLOOD SPECIMEN Performed By: #### F [facility], 1985-11 #### [facility] CLIA [id number] [address] [place] [address] Bilirub Conj SerPl-mCncon Bilirubin.conjugate d [Mass/Vol] mg/dL Normal <0.2 [facility] Comment on above: Order Comment: Speci men Type: BLOOD SPECIMEN Performed By: #### 1 5152-2, 48901-8 ####[facility] [id number] [place] [address] CASE MGT INIT ASSESon 2020 CASE MGT INIT ASS HNO ID: [id number] Author: DANIE Man (Lisw) Service: Social Work Author Type: Automotive Alignment Specialist Type: Care Mgt Initial Assessment Filed: 11/01/2020 3:43 PM Note Text: CARE MANAGEMENT: ASSESSMENT AND DISCHARGE PLAN SERVICE DATE: November 01, 2020 SERVICE TIME: 3:39 PM PRIMARY CARE PHYSICIAN: Christine Puente ADMISSION STATUS: Inpatient Needs Prior to Discharge: Desat Study;Patient/Family MEDICAL: N/A 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 Last discharge within 30 days: No Advance Directive: Current Advance Directive: None Talent Development Director Attempted to Assist with AD Completion: No Unable to Assist Due To:: (in isolation) Health LiteracyHow often do you need to have someone help you when you read instructions, pamphlets, or other written material from your doctor or pharmacy? : 1 - Never How confident are you filling out medical forms by yourself?: 1 - Extremely Baseline Mental Status Prior to this Illness what was the patient's Baseline Mental Status?: Alert AND Oriented Prior to this illness, has anyone described the patient having any of the following behaviors?: Not Applicable Relationship of the informant to the patient:: Self Functional Status: Independent Does Patient Currently Receive Any Community Services or Home Care?: None Equipment Prior to Admission: None Has the Patient Been in a Assisted Facility in the Past 30 days?: No SOCIAL: Living Arrangements: Home Lives With: Father Financial Resources: Other: See Comment (Cares for his father at home) Primary Contact: Extended Emergency Contact Information Primary Emergency Contact: LES SHUKLA Address: [address] [place] [address] Relation: Father Supportive Patient Contact:: Yes Contact Resources: Family Family Name/Phone: father Caregiver AssessmentCaregiver is ready, willing and able to meet the patient's needs as recommended by the inter-professional team:: No Caregiver needed Does the patient have an acute stroke diagnosis, or has the patient had a stroke during this admission?: No Patient's transition needs and plan for meeting these needs: Home with possible home oxygen needs Patient's perception of need for this admission: + Covid Medication Adherance I am convinced of the importance of my prescription medication: 0 - Agree Completely I worry that my prescription medication will do more harm than good to me : 0 - Disagree Completely I feel financially burdened by my [id number]-[id number] expenses for my prescription medication:: 0 - Disagree Completely Risk Score: 0 Patient is categorized as: Low risk < 2 Are you interested in bedside delivery of your medications? Yes Is Patient Psychosocially Complex?: No ASSESSMENT AND PLAN: Medical Needs: Medical Needs: None Psychosocial Needs: Psychosocial Needs: None FREEDOM OF CHOICE EXPLAINED: Keymar of Choice Given: Yes Level of Care Discussed: (home oxygen) Financial Disclosure Provided: Yes Financial Disclosure Comments: by phone Provider list within the patient's requested geographic area shared with the patient/family: No Reason: Patient chose DME company his father uses [employer] Home Telephone interview.. Patient lives with his father in [place].and is his caregiver. No services in place. No DME. Patient is currently on 3 liters oxygen. Referral placed to Zoya to follow in case of home oxygen needs.Plan maybe to go to his sister Manjeet antonio until he and hisDad travel back to [place]. All 3 have covid.Will follow. SIGNATURE: DANIE Man PATIENT NAME: Charo Shukla DATE: November 01, 2020 TIME: 3:39 PM PAGER/CONTACT #: [phone] [facility] CBC W Auto Diff [place] 2020 Basophils (Bld) [#/Vol] 10*3/uL Normal <0.11 [facility] Comment on above: Order Comment: Speci men Type: BLOOD SPECIMEN Performed By: #### 5 7021-8 #### [facility] CLIA [id number] [address] [place] [address] Basophils/100 WBC (Bld) 0.3 % Normal [facility] Comment on above: Order Comment: Speci men Type: BLOOD SPECIMEN Performed By: #### 5 7021-8 #### [facility] CLIA [id number] [address] [place] [address] Differential cell count method Nom (Bld) Auto Normal [facility] Comment on above: Order Comment: Speci men Type: BLOOD SPECIMEN Performed By: #### 5 7021-8 #### [facility] CLIA [id number] [address] [place] [address] Eosinophils (Bld) [#/Vol] 10*3/uL Normal <0.46 [facility] Comment on above: Order Comment: Speci men Type: BLOOD SPECIMEN Performed By: #### 5 7021-8 #### [facility] CLIA [id number] [address] [place] [address] Eosinophils/100 WBC (Bld) 0.0 % Normal [facility] Comment on above: Order Comment: Speci men Type: BLOOD SPECIMEN Performed By: #### 5 7021-8 #### [facility] CLIA [id number] [address] [place] [address] Erythrocyte distribution width (RBC) [Ratio] 13.4 % Normal 11.5-15.0 [facility] Comment on above: Order Comment: Speci men Type: BLOOD SPECIMEN Performed By: #### 5 7021-8 #### [facility] CLIA [id number] [address] [place] [address] Hematocrit (Bld) [Volume fraction] 42.8 % Normal 39.0-51.0 [facility] Comment on above: Order Comment: Speci men Type: BLOOD SPECIMEN Performed By: #### 5 7021-8 #### [facility] CLIA [id number] [address] [place] [address] Hemoglobin (Bld) [Mass/Vol] 14.0 g/dL Normal 13.0-17.0 [facility] Comment on above: Order Comment: Speci men Type: BLOOD SPECIMEN Performed By: #### 5 7021-8 #### [facility] CLIA [id number] [address] [place] [address] IMMATURE GRAN % 1.2 % Normal [facility] Comment on above: Order Comment: Speci men Type: BLOOD SPECIMEN Performed By: #### 5 7021-8 #### [facility] CLIA [id number] [address] [place] [address] IMMATURE GRAN ABS 0.07 k/uL Normal <0.10 [facility] Comment on above: Order Comment: Speci men Type: BLOOD SPECIMEN Performed By: #### 5 7021-8 #### [facility] CLIA [id number] [address] [place] [address] Lymphocytes (Bld) [#/Vol] 1.11 10*3/uL Normal 1.00-4.00 [facility] Comment on above: Order Comment: Speci men Type: BLOOD SPECIMEN Performed By: #### 5 7021-8 #### [facility] CLIA [id number] [address] [place] [address] Lymphocytes/100 WBC (Bld) 18.8 % Normal [facility] Comment on above: Order Comment: Speci men Type: BLOOD SPECIMEN Performed By: #### 5 7021-8 #### [facility] CLIA [id number] [address] [place] [address] MCH (RBC) [Entitic mass] 28.2 pg Normal 26.0-34.0 [facility] Comment on above: Order Comment: Speci men Type: BLOOD SPECIMEN Performed By: #### 5 7021-8 #### [facility] CLIA [id number] [address] [place] [address] MCHC (RBC) [Mass/Vol] 32.7 g/dL Normal 30.5-36.0 [facility] Comment on above: Order Comment: Speci men Type: BLOOD SPECIMEN Performed By: #### 5 7021-8 #### [facility] CLIA [id number] [address] [place] [address] MCV (RBC) [Entitic vol] 86.1 fL Normal 80.0-100.0 [facility] Comment on above: Order Comment: Speci men Type: BLOOD SPECIMEN Performed By: #### 5 7021-8 #### [facility] CLIA [id number] [address] [place] [address] Monocytes (Bld) [#/Vol] 0.29 10*3/uL Normal <0.87 [facility] Comment on above: Order Comment: Speci men Type: BLOOD SPECIMEN Performed By: #### 5 7021-8 #### [facility] CLIA [id number] [address] [place] [address] Monocytes/100 WBC (Bld) 4.9 % Normal [facility] Comment on above: Order Comment: Speci men Type: BLOOD SPECIMEN Performed By: #### 5 7021-8 #### [facility] CLIA [id number] [address] [place] [address] Neutrophils (Bld) [#/Vol] 4.41 10*3/uL Normal 1.45-7.50 [facility] Comment on above: Order Comment: Speci men Type: BLOOD SPECIMEN Performed By: #### 5 7021-8 #### [facility] CLIA [id number] [address] [place] [address] Neutrophils/100 WBC (Bld) 74.8 % Normal [facility] Comment on above: Order Comment: Speci men Type: BLOOD SPECIMEN Performed By: #### 5 7021-8 #### [facility] CLIA [id number] [address] [place] [address] Nucleated RBC (Bld) [#/Vol] 10*3/uL Normal <0.01 [facility] Comment on above: Order Comment: Speci men Type: BLOOD SPECIMEN Performed By: #### 5 7021-8 #### [facility] CLIA [id number] [address] [place] [address] Nucleated RBC/100 WBC (Bld) [Ratio] 0.0 /[address] [facility] Comment on above: Order Comment: Speci men Type: BLOOD SPECIMEN Performed By: #### 5 7021-8 #### [facility] CLIA [id number] [address] [place] [address] Platelet mean volume (Bld) [Entitic vol] 11.5 fL Normal 9.0-12.7 [facility] Comment on above: Order Comment: Speci men Type: BLOOD SPECIMEN Performed By: #### 5 7021-8 #### [facility] CLIA [id number] [address] [place] [address] Platelets (Bld) [#/Vol] 152 10*3/uL Normal 150-400 [facility] Comment on above: Order Comment: Speci men Type: BLOOD SPECIMEN Performed By: #### 5 7021-8 #### [facility] CLIA [id number] [address] [place] [address] RBC (Bld) [#/Vol] 4.97 10*6/uL Normal 4.20-6.00 [facility] Comment on above: Order Comment: Speci men Type: BLOOD SPECIMEN Performed By: #### 5 7021-8 #### [facility] CLIA [id number] [address] [place] [address] WBC (Bld) [#/Vol] 5.90 10*3/uL Normal 3.70-11.00 [facility] Comment on above: Order Comment: Speci men Type: BLOOD SPECIMEN Performed By: #### 5 7021-8 #### [facility] CLIA [id number] [address] [place] [address] CONSULTon 11-01-2020 CONSULT HNO ID: [id number] Author: Warren Melo Service: Infectious Disease Author Type: Physician Type: Consults Filed: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 for now. - Consider US abdomen if LFTs do not normalize Hgb stable with brown/green liquid diet. Suspect black stool was from use of Pepto Bismol and epistaxis. Doubt GI bleeding. No inpatient GI procedures planned GI will sign off' ID consult is pending. Pt remains on abx along with decadron and remdesivir. Visit with pt this afternoon at 1540 - says he has been up all day, sitting in chair or walking in room, feels better. I asked about his dad (just dc'd his dad yesterday, home with home care, from this very floor!). Says he is normally his dad's caregiver, 'dad doesn't like staying with my sister because she keeps the heat down so low, that my dad says he is freezing!'. He asked 'was my dad very much trouble?'. Told him, no that his dad is a sweetheart. Pt had really no complaints, less sob, cough manageable, appetite better. Objective - 11/01/20 0159 11/01/20 0523 11/01/20 0825 11/01/20 1100 BP: 97/64 116/68 121/71 Pulse: 72 83 84 Resp: 18 20 20 Temp: 37.1 ?C (98.8 ?F) 36.3 ?C (97.3 ?F) 37.2 ?C (99 ?F) 37.4 ?C (99.3 ?F) TempSrc: Oral Oral Oral SpO2: 95% 93% 94% Weight: Height: Pt remains on 3 liters, sats 94% Results for CHARO SHUKLA ( ) as of 11/01/2020 14:50 Ref. Range 10/31/2020 14:54 10/31/2020 14:56 10/31/2020 21:56 11/01/2020 05:29 Sodium Latest Ref Range: 136 - 144 mmol/L 140 139 Potassium Latest Ref Range: 3.7 - 5.1 mmol/L 3.2 (L) 3.5 (L) Chloride Latest Ref Range: 97 - 105 mmol/L 104 105 CO2 Latest Ref Range: 22 - 30 mmol/L 22 23 BUN Latest Ref Range: 9 - 24 mg/dL 9 9 Creatinine Latest Ref Range: 0.73 - 1.22 mg/dL 0.90 0.82 Glucose Latest Ref Range: 74 - 99 mg/dL 110 (H) 160 (H) Protein, Total Latest Ref Range: 6.3 - 8.0 g/dL 6.6 6.1 (L) Calcium Latest Ref Range: 8.5 - 10.2 mg/dL 8.2 (L) 8.2 (L) Magnesium Latest Ref Range: 1.7 - 2.3 mg/dL 1.8 Phosphorus Latest Ref Range: 2.7 - 4.8 mg/dL 3.3 Albumin Latest Ref Range: 3.9 - 4.9 g/dL 3.8 (L) 3.4 (L) Bilirubin, Total Latest Ref Range: 0.2 - 1.3 mg/dL 0.5 0.4 Bilirubin, Conjug Latest Ref Range: <0.2 mg/dL <0.2 Alkaline Phosphatase Latest Ref Range: 38 - 113 U/L 87 78 ALT Latest Ref Range: 10 - 54 U/L 62 (H) 51 AST Latest Ref Range: 14 - 40 U/L 112 (H) 100 (H) Anion Gap Latest Ref Range: 9 - 18 mmol/L 14 11 Lipase Latest Ref Range: 16 - 61 U/L 49 eGFR- Unknown >60 >60 eGFR-All Other Races Unknown >60 >60 Ferritin Latest Ref Range: 30.3 - 565.7 ng/mL 962.4 (H) CRP Latest Ref Range: <0.9 mg/dL 11.4 (H) Procalcitonin Latest Ref Range: <0.09 ng/mL 0.58 (H) Hematocrit Latest Ref Range: 39.0 - 51.0 % 46.7 45.3 42.8 Results for CHARO SHUKLA ( ) as of 11/01/2020 14:50 Ref. Range 10/31/2020 14:54 10/31/2020 21:56 11/01/2020 05:29 WBC Latest Ref Range: 3.70 - 11.00 k/uL 6.51 5.90 RBC Latest Ref Range: 4.20 - 6.00 m/uL 5.54 4.97 Hemoglobin Latest Ref Range: 13.0 - 17.0 g/dL 15.7 14.6 14.0 Hematocrit Latest Ref Range: 39.0 - 51.0 % 46.7 45.3 42.8 Platelet Count Latest Ref Range: 150 - 400 k/uL 168 152 MCV Latest Ref Range: 80.0 - 100.0 fL 84.3 86.1 MCH Latest Ref Range: 26.0 - 34.0 pg 28.3 28.2 MCHC Latest Ref Range: 30.5 - 36.0 g/dL 33.6 32.7 MPV Latest Ref Range: 9.0 - 12.7 fL 12.0 11.5 RDW-CV Latest Ref Range: 11.5 - 15.0 % 13.3 13.4 DTYPE Unknown Auto Auto Absol Gran Count Latest Ref Range: <0.10 k/uL 0.06 0.07 Neut% Latest Units: % 69.9 74.8 Abs Neut (ANC) Latest Ref Range: 1.45 - 7.50 k/uL 4.55 4.41 Lymph% Latest Units: % 24.1 18.8 Abs Lymph Latest Ref Range: 1.00 - 4.00 k/uL 1.57 1.11 Graves% Latest Units: % 4.8 4.9 Abs Graves Latest Ref Range: <0.87 k/uL 0.31 0.29 Eosin% Latest Units: % 0.0 0.0 Abs Eosin Latest Ref Range: <0.46 k/uL <0.03 <0.03 Baso% Latest Units: % 0.3 0.3 Abs Baso Latest Ref Range: <0.11 k/uL <0.03 <0.03 NRBC Latest Ref Range: 0.0 /100 WBC 0.0 0.0 Absolute nRBC Latest Ref Range: <0.01 k/uL <0.01 <0.01 Immature Gran % Latest Units: % 0.9 1.2 GEN - tired appearing 29 yo gentleman sitting up in chair, watching a movie on his phone, NAD HEENT- mouth moist CARD- RRR PULM- clear with good air movement appreciated ABD- soft, nontender EXT- no edema NEURO - alert and oriented, no confusion Assessment/plan - 1) Acute hypoxic resp failure due to Covid pneumonia in a pt with hx of asthma - is on abx along with both decadron and remdesivir. ID consult is pending. Clinically pt is doing better. Defer dc of abx at this time due to cxr, elevated CRP and sl elevated procal. Will order urine antigen for S Pneumoniae, sputum culture. 2) ? Melena - per GI consult, black stool was likely due to peptobismal, hgb stable 3) Developmental disability? - seem sl childlike, but very pleasant, understands plan of care 4) GI and DVT prophylaxis - diet, add lovenox, encouraged ambulation 5) Disposition - as above, currently on 3 liters, await ID recommendations, for home with father at eventual dc. Normal [facility] PT Pnl PPPon 11-01-2020 INR Coag (PPP) [Relative time] 1.0 {INR} Normal 0.9-1.3 [facility] Comment on above: Order Comment: Speci men Type: BLOOD SPECIMEN Result Comment: Milagros min K Antagonist (VKA) Therapeutic Range: INR 2 to 3 (Target INR of 2.5) Note: For patients treated with VKA drugs, such as warfarin, the [place] [employer] 2012 Guideline recommends a therapeutic INR range of 2 to 3 (target INR of 2.5). This recommendation includes high-risk patients with antiphospholipid syndrome with previous arterial or venous thromboembolism, current-generation mechanical or bioprosthetic aortic heart valve replacement. Note: Patients with mechanical aortic valve replacement and additional risk factors for thromboembolic events (atrial fibrillation, previous thromboembolism, LV dysfunction, hypercoagulable conditions) or an older generation mechanical AVR (i.e., ball in-Cage) or any mechanical MVR should have a INR therapeutic range of 2.5 to 3.5 (target INR of 3). Nikky GH, et al. Chest 2012, 141:7S-47S Tiara RA, et al. [facility] 2017, 70: 252-289 Performed By: #### F ERR, 1987-11 #### [facility] CLIA [id number] [address] [place] [address] PT Coag (PPP) [Time] 10.8 s Normal 9.7-13.0 [facility] Comment on above: Order Comment: Speci men Type: BLOOD SPECIMEN Performed By: #### F ERR, 1987-11 #### [facility] CLIA [id number] [address] [place] [address] STREPTOCOCCUS PNEUMONIAE AGo n 11-01-2020 STREPTOCOCCUS PNEUMONIAE AG STREP PNEUMO AG RESULT: Negative for Stretococcus pneumoniae antigen. Presumptive negative for pneumococcal pneumonia, suggesting no current or recent pneumococcal infection. Infection due to S.pneumoniae cannot be ruled out since the antigen present in the sample may be below the detection limit of the test. Normal [facility] Comment on above: Performed By: #### S PNAG ####[facility] [id number] [place] [address] ALLIED HEALTHon 10-31-2020 ALLIED HEALTH HNO ID: [id number] Author: Destin Louise (Rt) Service: Radiology Author Type: Donations Attendant Type: Allied Health Filed: 10/31/2020 3:06 PM Note Text: Radiology Service Progress Note PATIENT NAME: Charo Shukla DATE OF SERVICE: October 31, 2020 TIME: 3:06 PM PATIENT IDENTITY VERIFICATION COMPLETED USING TWO (2) IDENTIFIERS: Name and Date of confirmed by patient verbally and Name and Date of confirmed by identification band. FALL SCREENING: Has the patient had 2 falls in the last year or 1 fall with injury or currently using an Ambulatory Assistive Device (Walker, Cane, Wheelchair, Crutches, etc.)? Emergency Room Patient: Screened in ED PATIENT GENDER DATA: Male PATIENT RELEVANT IMPLANT DATA REVIEWED: Not Applicable RADIOLOGY DEPARTMENT: General X-ray: Exam(s) Completed: Chest X-Ray PERIPHERAL IV DATA: Not applicable SIGNED BY: RT Vi October 31, 2020 3:[address] [facility] CBC W Auto Diff [place] 2020 Basophils (Bld) [#/Vol] 10*3/uL Normal <0.11 [facility] Comment on above: Order Comment: Speci men Type: BLOOD SPECIMEN Performed By: #### F GEOVANI, 1987-11 #### [facility] CLIA [id number] [address] [place] [address] Basophils/100 WBC (Bld) 0.3 % Normal [facility] Comment on above: Order Comment: Speci men Type: BLOOD SPECIMEN Performed By: #### F GEOVANI, 1987-11 #### [facility] CLIA [id number] [address] [place] [address] Differential cell count method Nom (Bld) Auto Normal [facility] Comment on above: Order Comment: Speci men Type: BLOOD SPECIMEN Performed By: #### F GEOVANI1987-11 #### [facility] CLIA [id number] [address] [place] [address] Eosinophils (Bld) [#/Vol] 10*3/uL Normal <0.46 [facility] Comment on above: Order Comment: Speci men Type: BLOOD SPECIMEN Performed By: #### F GEOVANI, 1987-11 #### [facility] CLIA [id number] [address] [place] [address] Eosinophils/100 WBC (Bld) 0.0 % Normal [facility] Comment on above: Order Comment: Speci men Type: BLOOD SPECIMEN Performed By: #### GEOVANI1987-11 #### [facility] CLIA [id number] [address] [place] [address] Erythrocyte distribution width (RBC) [Ratio] 13.3 % Normal 11.5-15.0 [facility] Comment on above: Order Comment: Speci men Type: BLOOD SPECIMEN Performed By: #### GEOVANI1987-11 #### [facility] CLIA [id number] [address] [place] [address] Hematocrit (Bld) [Volume fraction] 46.7 % Normal 39.0-51.0 [facility] Comment on above: Order Comment: Speci men Type: BLOOD SPECIMEN Performed By: #### GEOVANI1987-11 #### [facility] CLIA [id number] [address] [place] [address] Hemoglobin (Bld) [Mass/Vol] 15.7 g/dL Normal 13.0-17.0 [facility] Comment on above: Order Comment: Speci men Type: BLOOD SPECIMEN Performed By: #### GEOVANI1987-11 #### [facility] CLIA [id number] [address] [place] [address] IMMATURE GRAN % 0.9 % Normal [facility] Comment on above: Order Comment: Speci men Type: BLOOD SPECIMEN Performed By: #### GEOVANI1987-11 #### [facility] CLIA [id number] [address] [place] [address] IMMATURE GRAN ABS 0.06 k/uL Normal <0.10 [facility] Comment on above: Order Comment: Speci men Type: BLOOD SPECIMEN Performed By: #### GEOVANI1987-11 #### [facility] CLIA [id number] [address] [place] [address] Lymphocytes (Bld) [#/Vol] 1.57 10*3/uL Normal 1.00-4.00 [facility] Comment on above: Order Comment: Speci men Type: BLOOD SPECIMEN Performed By: #### GEOVANI1987-11 #### [facility] CLIA [id number] [address] [place] [address] Lymphocytes/100 WBC (Bld) 24.1 % Normal [facility] Comment on above: Order Comment: Speci men Type: BLOOD SPECIMEN Performed By: #### GEOVANI1987-11 #### [facility] CLIA [id number] [address] [place] [address] MCH (RBC) [Entitic mass] 28.3 pg Normal 26.0-34.0 [facility] Comment on above: Order Comment: Speci men Type: BLOOD SPECIMEN Performed By: #### F GEOVANI1987-11 #### [facility] CLIA [id number] [address] [place] [address] MCHC (RBC) [Mass/Vol] 33.6 g/dL Normal 30.5-36.0 [facility] Comment on above: Order Comment: Speci men Type: BLOOD SPECIMEN Performed By: #### GEOVANI1987-11 #### [facility] CLIA [id number] [address] [place] [address] MCV (RBC) [Entitic vol] 84.3 fL Normal 80.0-100.0 [facility] Comment on above: Order Comment: Speci men Type: BLOOD SPECIMEN Performed By: #### GEOVANI1987-11 #### [facility] CLIA [id number] [address] [place] [address] Monocytes (Bld) [#/Vol] 0.31 10*3/uL Normal <0.87 [facility] Comment on above: Order Comment: Speci men Type: BLOOD SPECIMEN Performed By: #### GEOVANI1987-11 #### [facility] CLIA [id number] [address] [place] [address] Monocytes/100 WBC (Bld) 4.8 % Normal [facility] Comment on above: Order Comment: Speci men Type: BLOOD SPECIMEN Performed By: #### GEOVANI1987-11 #### [facility] CLIA [id number] [address] [place] [address] Neutrophils (Bld) [#/Vol] 4.55 10*3/uL Normal 1.45-7.50 [facility] Comment on above: Order Comment: Speci men Type: BLOOD SPECIMEN Performed By: #### GEOVANI1987-11 #### [facility] CLIA [id number] [address] [place] [address] Neutrophils/100 WBC (Bld) 69.9 % Normal [facility] Comment on above: Order Comment: Speci men Type: BLOOD SPECIMEN Performed By: #### F GEOVANI1987-11 #### [facility] CLIA [id number] [address] [place] [address] Nucleated RBC (Bld) [#/Vol] 10*3/uL Normal <0.01 [facility] Comment on above: Order Comment: Speci men Type: BLOOD SPECIMEN Performed By: #### Janet GEOVANI1987-11 #### [facility] CLIA [id number] [address] [place] [address] Nucleated RBC/100 WBC (Bld) [Ratio] 0.0 /[address] [facility] Comment on above: Order Comment: Speci men Type: BLOOD SPECIMEN Performed By: #### Janet GEOVANI1987-11 #### [facility] CLIA [id number] [address] [place] [address] Platelet mean volume (Bld) [Entitic vol] 12.0 fL Normal 9.0-12.7 [facility] Comment on above: Order Comment: Speci men Type: BLOOD SPECIMEN Performed By: #### Janet GEOVANI1987-11 #### [facility] CLIA [id number] [address] [place] [address] Platelets (Bld) [#/Vol] 168 10*3/uL Normal 150-400 [facility] Comment on above: Order Comment: Speci men Type: BLOOD SPECIMEN Performed By: #### Janet GEOVANI1987-11 #### [facility] CLIA [id number] [address] [place] [address] RBC (Bld) [#/Vol] 5.54 10*6/uL Normal 4.20-6.00 [facility] Comment on above: Order Comment: Speci men Type: BLOOD SPECIMEN Performed By: #### Janet GEOVANI1987-11 #### [facility] CLIA [id number] [address] [place] [address] WBC (Bld) [#/Vol] 6.51 10*3/uL Normal 3.70-11.00 [facility] Comment on above: Order Comment: Speci men Type: BLOOD SPECIMEN Performed By: #### F GEOVANI, 1987-11 #### [facility] CLIA [id number] [address] [place] [address] CRP SerPl-mCncon 10-31-2020 CRP [Mass/Vol] 11.4 mg/dL High <0.9 [facility] Comment on above: Order Comment: Speci men Type: BLOOD SPECIMEN Performed By: #### GEOVANI, 1987-11 #### [facility] CLIA [id number] [address] [place] [address] Comp Metab 2000 Pnl SerPlon 10-31-2020 Albumin [Mass/Vol] 3.8 g/dL Low 3.9-4.9 [facility] Comment on above: Order Comment: Speci men Type: BLOOD SPECIMEN Performed By: #### GEOVANI1987-11 #### [facility] CLIA [id number] [address] [place] [address] ALP [Catalytic activity/Vol] 87 U/L Normal 38-113 [facility] Comment on above: Order Comment: Speci men Type: BLOOD SPECIMEN Performed By: #### GEOVANI, 1987-11 #### [facility] CLIA [id number] [address] [place] [address] ALT With P-5'-P [Catalytic activity/Vol] 62 U/L High 10-54 [facility] Comment on above: Order Comment: Speci men Type: BLOOD SPECIMEN Performed By: #### GEOVANI1987-11 #### [facility] CLIA [id number] [address] [place] [address] Anion gap [Moles/Vol] 14 mmol/L Normal 9-18 [facility] Comment on above: Order Comment: Speci men Type: BLOOD SPECIMEN Performed By: #### GEOVANI1987-11 #### [facility] CLIA [id number] [address] [place] [address] AST With P-5'-P [Catalytic activity/Vol] 112 U/L High 14-40 [facility] Comment on above: Order Comment: Speci men Type: BLOOD SPECIMEN Performed By: #### F ERR1987-11 #### [facility] CLIA [id number] [address] [place] [address] Bilirubin [Mass/Vol] 0.5 mg/dL Normal 0.2-1.3 [facility] Comment on above: Order Comment: Speci men Type: BLOOD SPECIMEN Performed By: #### GEOVANI1987-11 #### [facility] CLIA [id number] [address] [place] [address] Calcium [Mass/Vol] 8.2 mg/dL Low 8.5-10.2 [facility] Comment on above: Order Comment: Speci men Type: BLOOD SPECIMEN Performed By: #### GEOVANI1987-11 #### [facility] CLIA [id number] [address] [place] [address] Chloride [Moles/Vol] 104 mmol/L Normal 97-105 [facility] Comment on above: Order Comment: Speci men Type: BLOOD SPECIMEN Performed By: #### GEOVANI1987-11 #### [facility] CLIA [id number] [address] [place] [address] CO2 [Moles/Vol] 22 mmol/L Normal 22-30 [facility] Comment on above: Order Comment: Speci men Type: BLOOD SPECIMEN Performed By: #### GEOVANI1987-11 #### [facility] CLIA [id number] [address] [place] [address] Creatinine [Mass/Vol] 0.90 mg/dL Normal 0.73-1.22 [facility] Comment on above: Order Comment: Speci men Type: BLOOD SPECIMEN Performed By: #### GEOVANI1987-11 #### [facility] CLIA [id number] [address] [place] [address] GFR/1.73 sq M.predicted MDRD (S/P/Bld) [Vol rate/Area] mL/min/{1.73_m2} Normal [facility] Comment on above: Order Comment: Speci men Type: BLOOD SPECIMEN Result Comment: >60 eGFR (Estimated GFR) Units of measure: mL/min/1.73 meters squared eGFR is derived from the reexpressed MDRD Study equation using the following parameters: serum creatinine, age, gender and race. The creatinine assay has been calibrated to be traceable to IDMS. An eGFR <60 mL/min/1.73m2 for >3 months is consistent with chronic kidney disease. Refer to KDOQI guidelines for clinical interpretation. In patients with unstable renal function, e.g. those with acute kidney injury, the eGFR may not accurately reflect actual GFR. Performed By: #### F ERR1987-11 #### [facility] CLIA [id number] [address] [place] [address] Glucose [Mass/Vol] 110 mg/dL High 74-99 [facility] Comment on above: Order Comment: Speci men Type: BLOOD SPECIMEN Result Comment: The [place] [employer] (ADA) provides guidance for cutoff values for fasting glucose and random glucose. The ADA defines fasting as no caloric intake for at least 8 hours. Fasting plasma glucose results between 100 to 125 mg/dL indicate increased risk for diabetes (prediabetes). Fasting plasma glucose results greater than or equal to 126 mg/dL meet the criteria for diagnosis of diabetes. In the absence of unequivocal hyperglycemia, results should be confirmed by repeat testing. In a patient with classic symptoms of hyperglycemia or hyperglycemic crisis, random plasma glucose results greater than or equal to 200 mg/dL meet the criteria for diagnosis of diabetes. Reference: Standards of Medical Care in Diabetes 2016, [place] [employer]. Diabetes Care. 2016.39(Suppl 1). Performed By: #### F ERR1987-11 #### [facility] CLIA [id number] [address] [place] [address] Potassium [Moles/Vol] 3.2 mmol/L Low 3.7-5.1 [facility] Comment on above: Order Comment: Speci men Type: BLOOD SPECIMEN Performed By: #### F ERR1987-11 #### [facility] CLIA [id number] [address] [place] [address] Protein [Mass/Vol] 6.6 g/dL Normal 6.3-8.0 [facility] Comment on above: Order Comment: Speci men Type: BLOOD SPECIMEN Performed By: #### F ERR, 1987-11 #### [facility] CLIA [id number] [address] [place] [address] Sodium [Moles/Vol] 140 mmol/L Normal 136-144 [facility] Comment on above: Order Comment: Speci men Type: BLOOD SPECIMEN Performed By: #### F ERR, 1987-11 #### [facility] CLIA [id number] [address] [place] [address] Urea nitrogen [Mass/Vol] 9 mg/dL Normal 9-24 [facility] Comment on above: Order Comment: Speci men Type: BLOOD SPECIMEN Performed By: #### F ERR, 1987-11 #### [facility] CLIA [id number] [address] [place] [address] D dimer FEU PPP-mCncon 10-31 Fibrin D-dimer FEU (PPP) [Mass/Vol] 970 ng/mL FEU High <500 [facility] Comment on above: Order Comment: Speci men Type: BLOOD SPECIMEN Performed By: #### F ERR, 1987-11 #### [facility] CLIA [id number] [address] [place] [address] ED NOTEon 10-31-2020 ED NOTE HNO ID: [id number] Author: Parker Melo MD Service: ? Author Type: Physician Type: ED Notes Filed: 10/31/2020 8:19 PM Note Text: Pt presenting w/ known COVID with worsening SOB and found to be hypoxic, 89% on RA at rest. He was started on 2L NC with correction. He reported dark stool last night without hx of same and no AC use. Pt w/ benign abd. Hemoccult sent. Pt admitted for further evaluation/management. Dexamethasone held for possible GIB. Parker Melo MD [facility] ED NOTE HNO ID: [id number] Author: Nessa AvilaRn) SARANYA Peña Service: Emergency Medicine Author Type: Registered Nurse Type: ED Notes Filed: 10/31/2020 7:06 PM Note Text: Received report from yareli BEAVER. Report has been called to floor. Awaiting clean bed [facility] ED NOTE HNO ID: [id number] Author: Iman AvilaRn) SARANYA Phipps Service: Emergency Medicine Author Type: Registered Nurse Type: ED Notes Filed: 10/31/2020 2:12 PM Note Text: Pt diagnosed with COVID and has been back to ED several times. Pt today C/O black tarry stool. Pt also has a temp of 102.[address] [facility] ED NOTE HNO ID: [id number] Author: Martin Streeter (Medic) Jaelyn Rivera Service: ? Author Type: Test Deck Supervisor and Donations Attendant Type: ED Notes Filed: 10/31/2020 2:07 PM Note Text: Bed: 15-ED Expected date: 10/31/20 Expected time: 1:29 PM Means of arrival: [place] FD Comments: Afd [address] [facility] ED PROV NOTEon 10-31-2020 ED PROV NOTE HNO ID: [id number] Author: Parker Melo MD Service: Emergency Medicine Author Type: Physician Type: ED Provider Notes Filed: 10/31/2020 10:00 PM Note Text: ED Provider Note Patient Name: Charo Shukla SERVICE DATE: 10/31/20 History Patient presents with: Diarrhea: pt states having black stool; + COVID, temp 102.9 29-year-old man presenting with shortness of breath, fever, cough and dark stool. He was diagnosed with Covid pneumonia after initial onset of symptoms at the end of September. He had persistent shortness of breath and cough so was seen again in the emergency department on 10/28/2020. At that time he had a chest x-ray which was concerning for development of superimposed pneumonia. He was started on doxycycline at that time for antibiotic coverage. He endorses continued worsening shortness of breath particularly with exertion including climbing up stairs while at his sister's house. This morning he had a bowel movement notable for very dark tarry stool. [facility] that he come into the emergency department for additional evaluation. He endorses significant nausea and frequent episodes of vomiting. He has not noted any blood in his vomit. No bright red blood in his stool. No history of dark stool in the past. He has no chest pain and no pain with deep inspiration. Cough is nonproductive. PAST MEDICAL HISTORY Diagnosis Date - COVID-19 No past surgical history on file. No family history on file. Social History Tobacco Use - Smoking status: Never Smoker - Smokeless tobacco: Never Used Substance and Sexual Activity - Alcohol use: Never - Drug use: Never - Sexual activity: Never ALLERGIES Allergen Reactions - Amoxicillin-Pot Cla* Unknown - Ceftriaxone Unknown - Codeine - Isopropyl Alcohol Unknown - Prednisolone Unknown Review of Systems Constitutional: Positive for chills, fatigue and fever. HENT: Negative for congestion and sore throat. Eyes: Negative for pain and redness. Respiratory: Positive for cough and shortness of breath. Negative for wheezing. Cardiovascular: Negative for chest pain and leg swelling. Gastrointestinal: Negative for abdominal pain, constipation, diarrhea, nausea and vomiting. Endocrine: Negative for cold intolerance and heat intolerance. Genitourinary: Negative for difficulty urinating, dysuria and flank pain. Musculoskeletal: Negative for arthralgias and myalgias. Skin: Negative for pallor and rash. Neurological: Negative for dizziness, syncope, light-headedness and headaches. Physical Exam BP 121/74 Pulse 91 Temp (Src) 98.4 (Oral) Resp 27 Ht 5' 8 (1.73m) Wt 230 lb (104.3kg) SpO2 95% BMI 34.98 kg/(m2). O2 Therapy: Nasal Cannula, Liters: 2 Physical Exam Vitals and nursing note reviewed. Constitutional: General: He is not in acute distress. Appearance: He is well-developed. He is not diaphoretic. HENT: Head: Normocephalic and atraumatic. Eyes: General: No scleral icterus. Conjunctiva/sclera: Conjunctivae normal. Pupils: Pupils are equal, round, and reactive to light. Neck: Thyroid: No thyromegaly. Trachea: No tracheal deviation. Cardiovascular: Rate and Rhythm: Normal rate and regular rhythm. Heart sounds: Normal heart sounds. No murmur heard. No friction rub. No gallop. Pulmonary: Effort: Pulmonary effort is normal. No respiratory distress. Breath sounds: Normal breath sounds. No wheezing or rales. Comments: Tachypneic. Lungs clear to auscultation. No increased work of breathing. Abdominal: General: Bowel sounds are normal. There is no distension. Palpations: Abdomen is soft. Tenderness: There is no abdominal tenderness. There is no guarding. Genitourinary: Comments: Dark stool on rectal exam. No gross blood. Musculoskeletal: Cervical back: Normal range of motion and neck supple. Comments: No lower extremity edema Skin: General: Skin is warm and dry. Findings: No erythema or rash. Neurological: Mental Status: He is alert and oriented to person, place, and time. Diagnostic Testing ED Labs Ordered and Reviewed COMP METABOLIC PANEL - Abnormal; Notable for the following components: Result Value Ref Range Albumin 3.8 (*) 3.9 - 4.9 g/dL Calcium, Total 8.2 (*) 8.5 - 10.2 mg/dL AST 112 (*) 14 - 40 U/L ALT 62 (*) 10 - 54 U/L Glucose 110 (*) 74 - 99 mg/dL Potassium 3.2 (*) 3.7 - 5.1 mmol/L All other components within normal limits URINALYSIS, WITH MICROSCOPIC - Abnormal; Notable for the following components: Color Dark Yellow (*) Yellow Clarity Turbid (*) Clear Bilirubin, Urine Detected. Unable to confirm. (*) Negative Ketones, Urine 15 mg/dL (*) Negative Hemoglobin/Blood,Ur Small (*) Negative Protein, Urine 100 mg/dL (*) Negative Urobilinogen 2.0 EU/dL (*) 0.2-1.0 EU/dL WBC, Urine 6-10 /HPF (*) 0-5 /HPF RBC, Urine 3-5 /HPF (*) 0-3 /HPF Casts, Hyaline 1-3 /LPF (*) 0 /LPF All other components within normal limits VENOUS BLOOD GAS, ED-POC(AK) - Abnormal; Notable for the following components: pH,Venous(POCT) 7.446 (*) 7.320 - 7.430 pH units pCO2,Venous(POCT) 32.8 (*) 40.6 - 60.0 mmHg pO2,Venous(POCT) 47.6 (*) 15.9 - 37.5 mmHg Total CO2 (POCT) 19.1 (*) 21.0 - 28.0 mmol/L sO2 (POCT) 85.0 (*) 18.0 - 74.8 % O2Hb,Venous(POCT) 83.4 (*) 18.2 - 66.4 % Glucose (POCT) 115 (*) 70 - 99 mg/dL Potassium (POCT) 3.0 (*) 3.4 - 4.5 mmol/L Ionized Ca (POCT) 1.03 (*) 1.15 - 1.29 mmol/L All other components within normal limits Narrative: Meter ID: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 Location:[facility], [address] [facility], [place], [place], [address] LIPASE BLD - Normal CBC + DIFF VENOUS BLOOD GAS, ED-POC(AK) FECAL OCCULT BLOOD TEST FECAL OCCULT BLOOD TEST Procedures ED Course / Clinical Impression ED Course as of Nov 01 1735 Others' Documentation Mon Oct 31, 2020 1546 Total CO2 (POCT)(!): 19.1 [GM] ED Course User Index [GM] Martin (Res) DO Melquiades Clinical Impressions as of Nov 01 1735 Acute hypoxemic respiratory failure due to COVID-19 (HCC) MDM / Disposition / Plan 29-year-old man known Covid positive presenting with fatigue, fever, shortness of breath and dark stool. On arrival he is febrile, tachycardic, tachypneic and hypoxic requiring 2L of oxygen 95% saturation. On my assessment oxygen was titrated off with desaturation to 87% and significant tachypnea. Chest x-ray and blood work obtained. Chest x-ray shows developing pneumonia while on doxycycline. Pneumonia is consistent with his known worsening hypoxia and oxygen requirement. He has no anemia or concerning electrolyte abnormalities. Lactate normal. He does have dark stool on rectal exam but no gross blood. He may have upper GI bleed secondary to significant retching. He has not had any hematemesis or evidence of acute large-volume blood loss. Given his hypoxia with oxygen requirements we will admit the patient for further evaluation and management. Patient will be admitted to sound service in stable condition. SIGNATURE: MD Charo Davison (Res) MD Matheus Resident 10/31/20 5111 Attending Note I evaluated the patient and personally participated in the thorne components. I agree with the resident's findings and plan as documented and have discussed the case and management of the patient's care with the resident. Please see my other note. Signature: Parker Melo MD Date: 10/31/2020 Time: 10:00 PM Parker Melo MD 10/31/[address] [facility] FERRITIN BLDon 10-31-2020 Ferritin [Mass/Vol] 962.4 ng/mL High 30.3-565.7 [facility] Comment on above: Order Comment: Speci men Type: BLOOD SPECIMEN Performed By: #### F ERR, 1987-11 #### [facility] CLIA [id number] [address] [place] [address] HEMATOCRIT (HCT)on 1 Hematocrit (Bld) [Volume fraction] 45.3 % Normal 39.0-51.0 [facility] Comment on above: Order Comment: Speci men Type: BLOOD SPECIMEN Performed By: #### F ERR, 1987-11 #### [facility] CLIA [id number] [address] [place] [address] HEMOGLOBIN (HGB)on 1 Hemoglobin (Bld) [Mass/Vol] 14.6 g/dL Normal 13.0-17.0 [facility] Comment on above: Order Comment: Speci men Type: BLOOD SPECIMEN Performed By: #### F ERR, 1987-11 #### [facility] CLIA [id number] [address] [place] [address] HISTORY PHYSICALon 1 HISTORY PHYSICAL HNO ID: [id number] Author: Erin Guerrero Service: Hospital Medicine Author Type: Nurse Practitioner Type: HANDP Filed: 10/31/2020 7:12 PM Note Text: DEPARTMENT OF HOSPITAL MEDICINE HISTORY AND PHYSICAL EXAM SERVICE DATE: 10/31/2020 SERVICE TIME: 6:58 PM Primary Care Physician: Christine Puente NIGHT AND WEEKEND COVERAGE: After 7pm call #[phone] Chief complaint: Shortness of breath, cough worsening since diagnosed with Covid on 10/23 and then today also with onset of several dark black stools. HPI: This is a 29-year-old male with past medical history of asthma. Came into the ED today due to worsening shortness of breath, cough, and complaint of several dark black stools which began today. He reports that he was diagnosed with COVID-19 on 23 October. He came back into the ED on October 28 due to shortness of breath and he was diagnosed with pneumonia and prescribed doxycycline. He reports he only took 1 pill of the doxycycline because it caused him to have nausea and vomiting. He comes back in today due to the recurrent shortness of breath, cough, and with this new dark black stools. Also is reporting high fevers, chills, and myalgias. He denies any abdominal pain or urinary symptoms. Denies any headache at this time. Cough is productive for clear/green sputum at times. In ED patient had a chest x-ray that showed again the presence of right upper lobe pneumonia. He had a fecal occult blood test that came back positive. CBC was unremarkable. His AST was slightly elevated at 112 and ALT 62. Patient was given a dose of IV doxycycline in the ED and he tolerated it well. Potassium was 3.2. See lab/imaging below. History (patient provided to the best of his ability) Medical: asthma Surgical: tonsillectomy Family: Sister with diabetes, Mother has 2/2 sequelae of stroke, Father has history of stroke Social: Does not smoke, No illicit drug use, Only drinks rarely during holidays or on vacation PAST MEDICAL HISTORY Diagnosis Date - COVID-19 No past surgical history on file. No family history on file. Social History Tobacco Use - Smoking status: Never Smoker - Smokeless tobacco: Never Used Substance Use Topics - Alcohol use: Never - Drug use: Never HOME MEDICATIONS: Prior to Admission Medications Prescriptions Last Dose Informant Patient Reported? Taking? ACETAMINOPHEN 325 MG TAB No No Si Tab ORAL EVERY 6 HOURS NEEDED for fever/pain ALBUTEROL SULFATE 5 MG/ML (0.5 %) NEB SOLUTION No No Sig: Inhale 2 puffs every 6 hours around the clock then as needed FLUTICASONE 110 MCG/ACTUATION AEROSOL INHALER No No Sig: Inhale 2 puffs twice a day PREDNISONE 10 MG TAB No No Sig: Take as directed by steroid taper schedule PREDNISONE 20 MG TAB No No Sig: Take as directed by steroid tapering schedule doxycycline monohydrate 100 mg tablet No No Sig: Take 1 tablet by mouth twice daily for 7 days. famotidine(PEPCID 20 MG TAB) No No Sig: Take one(1) tablet daily. Facility-Administered Medications: None ALLERGIES Allergen Reactions - Amoxicillin-Pot Cla* Unknown - Ceftriaxone Unknown - Codeine - Isopropyl Alcohol Unknown - Prednisolone Unknown REVIEW OF SYSTEM: All systems reviewed and negative except as stated in HPI PHYSICAL EXAM: BP 121/75 Pulse 88 Temp (Src) 98.4 (Oral) Resp 27 Ht 5' 8 (1.73m) Wt 230 lb (104.3kg) SpO2 96% BMI 34.98 kg/(m2). O2 Therapy: Nasal Cannula, Liters: 2 GENERAL: Alert, face is flushed, febrile, in no acute distress SKIN: Skin color, texture, turgor normal, no suspicious rashes or lesions HEAD: Normocephalic, atraumatic EYES: Anicteric sclera. Extraocular movements are intact. NECK: Supple, no adenopathy; thyroid symmetric, normal size, no bruits LUNGS: Clear /diminished bilaterally HEART: RRR without murmur, gallop, or rubs. No ectopy ABDOMEN: Abdomen soft, non-tender. Bowel sounds normal. No masses, organomegaly EXTREMITIES: No deformities, edema, skin discoloration, clubbing or cyanosis. Good capillary refill. MUSCULOSKELETAL: No joint swelling, deformity, or tenderness PULSES: Normal NEURO: Sensation grossly intact. AANDOx3 DATA: Diagnostic tests reviewed for today's visit: WBC (k/uL) Date Value 10/31/2020 6.51 06/08/2008 12.69 (H) RBC Date Value 10/31/2020 5.54 m/uL 06/08/2008 4.24 M/uL (L) Hemoglobin (g/dL) Date Value 10/31/2020 15.7 06/08/2008 12.0 (L) Hematocrit (%) Date Value 10/31/2020 46.7 06/08/2008 36.1 (L) MCV (fL) Date Value 10/31/2020 84.3 06/08/2008 85.1 MCH Date Value 10/31/2020 28.3 pg 06/08/2008 28.3 pG MCHC (g/dL) Date Value 10/31/2020 33.6 06/08/2008 33.2 RDW-CV (%) Date Value 10/31/2020 13.3 06/08/2008 13.4 Platelet Count (k/uL) Date Value 10/31/2020 168 06/08/2008 162 MPV (fL) Date Value 10/31/2020 12.0 06/08/2008 11.8 (H) Glucose (mg/dL) Date Value 10/31/2020 110 (H) 06/08/2008 100 BUN (mg/dL) Date Value 10/31/2020 9 06/08/2008 13 Creatinine (mg/dL) Date Value 10/31/2020 0.90 06/08/2008 0.73 Sodium (mmol/L) Date Value 10/31/2020 140 06/08/2008 143 Potassium (mmol/L) Date Value 10/31/2020 3.2 (L) 06/08/2008 3.8 Chloride (mmol/L) Date Value 10/31/2020 104 06/08/2008 115 (H) CO2 (mmol/L) Date Value 10/31/2020 22 06/08/2008 18 (L) Protein, Total (g/dL) Date Value 10/31/2020 6.6 Albumin (g/dL) Date Value 10/31/2020 3.8 (L) Calcium (mg/dL) Date Value 06/08/2008 8.5 Calcium, Total (mg/dL) Date Value 10/31/2020 8.2 (L) Alkaline Phosphatase (U/L) Date Value 10/31/2020 87 Bilirubin, Total (mg/dL) Date Value 10/31/2020 0.5 AST (U/L) Date Value 10/31/2020 112 (H) ALT (U/L) Date Value 10/31/2020 62 (H) URINLAYSIS Specific [place], Ur Date Value Ref Range Status 10/31/2020 1.026 1.005 - 1.030 Final Glucose, Urine Date Value Ref Range Status 10/31/2020 Negative Negative Final Bilirubin, Urine Date Value Ref Range Status 10/31/2020 Detected. Unable to confirm. (A) Negative Final Ketones, Urine Date Value Ref Range Status 10/31/2020 15 mg/dL (A) Negative Final Hemoglobin/Blood,Ur Date Value Ref Range Status 10/31/2020 Small (A) Negative Final Protein, Urine Date Value Ref Range Status 10/31/2020 100 mg/dL (A) Negative Final WBC, Urine Date Value Ref Range Status 10/31/2020 6-10 /HPF (A) 0-5 /HPF Final XR CHEST 1V FRONTAL Final Result IMPRESSION: 1. Mild atelectasis or pneumonia persists within the right upper lobe. Possible mild right basilar atelectasis or developing pneumonia. Ob Tech: GARFIELD Transcribe Date/Time: Oct 31 2020 3:08P Dictated by : KOLBY ECHEVERRIA MD This examination was interpreted and the report reviewed and electronically signed by: KOLBY ECHEVERRIA MD on Oct 31 2020 3:10PM EST Most recent labs and imaging results. Assessment/Plan Acute hypoxic respiratory failure / COVID-19 ?Diagnosis of Covid 10/23, developed pneumonia and prescribed doxy on 10/28 which patient reports he only took 1 dose of because he could not tolerate due to GI side effects ?Came in today due to worsening shortness of breath and cough as well as dark tarry stools, 87 to 88% RA on arrival ?Check and monitor Covid inflammatory markers ?We will start Decadron (patient has previous listed allergy to prednisone which he says that he got a mild rash on his right forearm for in the past, discussed with patient and he is okay with starting Decadron and will medicate with Benadryl to hopefully prevent this side effect) ?Patient does have mildly elevated LFTs, AST 112 and ALT 62, plan on starting remdesivir but will monitor LFTs closely ?Supplemental O2, titrate ?Albuterol inhaler and Mucinex as needed ?Telemetry GI bleed/melena ?Patient is reporting that he started having multiple dark black stools today, fecal occult blood positive ?He HANDH is stable but will continue to monitor ?Consult GI for possible scopes ?IV Protonix ?Hydrate with IV fluids Hypokalemia ?Potassium 3.2 ?Replace and recheck Chronic issues/additional history ?Asthma Functional Status: Ambulatory VTE Prophylaxis: Teds/SCDs Disposition: Home Plan of care discussed with: Patient SIGNATURE: Erin Sanchesandres PATIENT NAME: Charo Shukla DATE: October 31, 2020 TIME: 6:58 PM PAGER/CONTACT #: Team color pager Please note, the time of this note does not reflect the time I saw this patient today, but the time of this documentation. Normal [facility] Hemoccult Stl Ql IAon 2020 Lower GI hemoglobin IA Ql (Stl) Positive Abnormal Negative [facility] Comment on above: Order Comment: Speci men Type: STOOL SPECIMEN Performed By: #### 2 9771-3 ####[facility] [id number] [place] [address] Lipase SerPl-cCncon 11-01-19 21 Lipase [Catalytic activity/Vol] 49 U/L Normal 16-61 [facility] Comment on above: Order Comment: Speci men Type: BLOOD SPECIMEN Performed By: #### F ERR, 1987-11 #### [facility] CLIA [id number] [address] [place] [address] Magnesium SerPl-mCncon 10-31 Magnesium [Mass/Vol] 1.8 mg/dL Normal 1.7-2.3 [facility] Comment on above: Order Comment: Speci men Type: BLOOD SPECIMEN Performed By: #### F ERR, 1987-11 #### [facility] CLIA [id number] [address] [place] [address] PROCALCITONIN (LAB)on 2020 Procalcitonin [Mass/Vol] 0.58 ng/mL High <0.09 [facility] Comment on above: Order Comment: Speci men Type: BLOOD SPECIMEN Result Comment: For a guided interpretation of test results, please visit the Change in Procalcitonin Calculator, [email or web address]. Performed By: #### P ROCAL #### [facility] CLIA [id number] [address] [place] [address] PT Pnl PPPon 10-31-2020 INR Coag (PPP) [Relative time] 1.1 {INR} Normal 0.9-1.3 [facility] Comment on above: Order Comment: Speci men Type: BLOOD SPECIMEN Result Comment: Milagros min K Antagonist (VKA) Therapeutic Range: INR 2 to 3 (Target INR of 2.5) Note: For patients treated with VKA drugs, such as warfarin, the [place] [employer] 2012 Guideline recommends a therapeutic INR range of 2 to 3 (target INR of 2.5). This recommendation includes high-risk patients with antiphospholipid syndrome with previous arterial or venous thromboembolism, current-generation mechanical or bioprosthetic aortic heart valve replacement. Note: Patients with mechanical aortic valve replacement and additional risk factors for thromboembolic events (atrial fibrillation, previous thromboembolism, LV dysfunction, hypercoagulable conditions) or an older generation mechanical AVR (i.e., ball in-Cage) or any mechanical MVR should have a INR therapeutic range of 2.5 to 3.5 (target INR of 3). Nikky GH, et al. Chest 2012, 141:7S-47S Tiara RA, et al. [facility] 2017, 70: 252-289 Performed By: #### F GEOVANI, 1987-11 #### [facility] CLIA [id number] [address] [place] [address] PT Coag (PPP) [Time] 10.9 s Normal 9.7-13.0 [facility] Comment on above: Order Comment: Speci men Type: BLOOD SPECIMEN Performed By: #### Janet GEOVANI, 1985-11 #### [facility] CLIA [id number] [address] [place] [address] Phosphate SerPl-mCncon 10-31 Phosphate [Mass/Vol] 3.3 mg/dL Normal 2.7-4.8 [facility] Comment on above: Order Comment: Speci men Type: BLOOD SPECIMEN Performed By: #### Janet GEOVANI, 1987-11 #### [facility] CLIA [id number] [address] [place] [address] Urinalysis complete pnl Uron 10-31-2020 Bacteria LM.HPF (Urine sed) [#/Area] None Seen Normal None Seen [facility] Comment on above: Order Comment: Speci men Type: BLOOD SPECIMEN Performed By: #### Janet GEOVANI, 1987-11 #### [facility] CLIA [id number] [address] [place] [address] Bilirubin Ql (U) Detected. Unable to confirm. Abnormal Negative [facility] Comment on above: Order Comment: Speci men Type: BLOOD SPECIMEN Performed By: #### F GEOVANI, 1987-11 #### [facility] CLIA [id number] [address] [place] [address] Clarity (Unsp spec) Turbid Abnormal Clear [facility] Comment on above: Order Comment: Speci men Type: BLOOD SPECIMEN Performed By: #### Janet GEOVANI, 1987-11 #### [facility] CLIA [id number] [address] [place] [address] Color (U) Dark Yellow Abnormal Yellow [facility] Comment on above: Order Comment: Speci men Type: BLOOD SPECIMEN Performed By: #### 1987-11 #### [facility] CLIA [id number] [address] [place] [address] Epithelial cells LM.HPF (Urine sed) [#/Area] 1.6 /[HPF] Normal [facility] Comment on above: Order Comment: Speci men Type: BLOOD SPECIMEN Performed By: #### 1987-11 #### [facility] CLIA [id number] [address] [place] [address] Glucose Test strip (U) [Mass/Vol] Negative Normal Negative [facility] Comment on above: Order Comment: Speci men Type: BLOOD SPECIMEN Performed By: #### GEOVANI1987-11 #### [facility] CLIA [id number] [address] [place] [address] Hemoglobin Ql (U) Small Abnormal Negative [facility] Comment on above: Order Comment: Speci men Type: BLOOD SPECIMEN Performed By: #### 1987-11 #### [facility] CLIA [id number] [address] [place] [address] Hyaline casts (Urine sed) [#/Area] 1-3 /LPF Abnormal 0 /LPF [facility] Comment on above: Order Comment: Speci men Type: BLOOD SPECIMEN Performed By: #### GEOVANI1987-11 #### [facility] CLIA [id number] [address] [place] [address] Ketones Ql (U) 15 mg/dL Abnormal Negative [facility] Comment on above: Order Comment: Speci men Type: BLOOD SPECIMEN Performed By: #### GEOVANI1987-11 #### [facility] CLIA [id number] [address] [place] [address] Leukocyte esterase Test strip Ql (U) Negative Normal Negative [facility] Comment on above: Order Comment: Speci men Type: BLOOD SPECIMEN Performed By: #### GEOVANI1987-11 #### [facility] CLIA [id number] [address] [place] [address] Nitrite Ql (U) Negative Normal Negative [facility] Comment on above: Order Comment: Speci men Type: BLOOD SPECIMEN Performed By: #### Janet GEOVANI1987-11 #### [facility] CLIA [id number] [address] [place] [address] pH (U) 6.0 [pH] Normal 5.0-8.0 [facility] Comment on above: Order Comment: Speci men Type: BLOOD SPECIMEN Performed By: #### Janet GEOVANI1987-11 #### [facility] CLIA [id number] [address] [place] [address] Protein (U) [Mass/Vol] 100 mg/dL Abnormal Negative [facility] Comment on above: Order Comment: Speci men Type: BLOOD SPECIMEN Performed By: #### Janet GEOVANI1987-11 #### [facility] CLIA [id number] [address] [place] [address] RBC LM.HPF (Urine sed) [#/Area] 3-5 /HPF Abnormal 0-3 /HPF [facility] Comment on above: Order Comment: Speci men Type: BLOOD SPECIMEN Performed By: #### Janet GEOVANI1987-11 #### [facility] CLIA [id number] [address] [place] [address] Specific gravity (U) [Rel density] 1.026 Normal 1.005-1.030 [facility] Comment on above: Order Comment: Speci men Type: BLOOD SPECIMEN Performed By: #### Janet GEOVANI1987-11 #### [facility] CLIA [id number] [address] [place] [address] Urobilinogen Test strip Ql (U) 2.0 EU/dL Abnormal 0.2-1.0 EU/dL [facility] Comment on above: Order Comment: Speci men Type: BLOOD SPECIMEN Performed By: #### Janet GEOVANI1987-11 #### [facility] CLIA [id number] [address] [place] [address] WBC LM.HPF (Urine sed) [#/Area] 6-10 /HPF Abnormal 0-5 /HPF [facility] Comment on above: Order Comment: Speci men Type: BLOOD SPECIMEN Performed By: #### F ERR, 1987-11 #### [facility] CLIA [id number] [address] [place] [id number] XR CHEST 1V FRONTALon 2020 XR CHEST 1V FRONTAL * * *Final Report* * * DATE OF EXAM: Oct 31 2020 3:07PM AKX 5290 - XR CHEST 1V FRONTAL / PROCEDURE REASON: Acute respiratory illness * * * * Physician Interpretation * * * * EXAMINATION: CHEST RADIOGRAPH (SINGLE VIEW AP OR PA) CLINICAL HISTORY: Acute respiratory illness MQ: XC1_5 Comparison: 10/28/2020 and 10/23/2020 RESULT: Lines, tubes, and devices: None. Lungs and pleura: Ill-defined persistent increased density within the right upper lobe. No well-defined consolidation is seen. Mild increased density within the right middle/lower lobe region. Left lung appears clear. No pleural effusion or pneumothorax is seen. Shallow inspiration. Cardiomediastinal silhouette: Normal cardiomediastinal silhouette. Other: No acute bony abnormality is seen IMPRESSION: 1. Mild atelectasis or pneumonia persists within the right upper lobe. Possible mild right basilar atelectasis or developing pneumonia. Ob Tech: PSCB Transcribe Date/Time: Oct 31 2020 3:08P Dictated by : KOLBY ECHEVERRIA MD This examination was interpreted and the report reviewed and electronically signed by: KOLBY ECHEVERRIA MD on Oct 31 2020 3:10PM EST [id number] Normal [facility] ALLIED HEALTHon 10-28-2020 ALLIED HEALTH HNO ID: [id number] Author: Destin Salinas (Rt) Service: Radiology Author Type: Donations Attendant Type: Allied Health Filed: 10/28/2020 10:39 AM Note Text: Radiology Service Progress Note PATIENT NAME: Charo Shukla DATE OF SERVICE: October 28, 2020 TIME: 10:39 AM PATIENT IDENTITY VERIFICATION COMPLETED USING TWO (2) IDENTIFIERS: Name and Date of confirmed by patient verbally. FALL SCREENING: Has the patient had 2 falls in the last year or 1 fall with injury or currently using an Ambulatory Assistive Device (Walker, Cane, Wheelchair, Crutches, etc.)? Emergency Room Patient: Screened in ED PATIENT GENDER DATA: Male PATIENT RELEVANT IMPLANT DATA REVIEWED: Not Applicable RADIOLOGY DEPARTMENT: General X-ray: Exam(s) Completed: Chest X-Ray PERIPHERAL IV DATA: Not applicable SIGNED BY: RT Rita October 28, 2020 10:[address] [facility] ED NOTEon 10-28-2020 ED NOTE HNO ID: [id number] Author: Consuelo AvilaRn) SARANYA Menon Service: Emergency Medicine Author Type: Registered Nurse Type: ED Notes Filed: 10/28/2020 11:35 AM Note Text: Pt ambulated with pulse ox, with steady gait; saturation 93-94%. Dr Badillo notified. Normal [facility] ED NOTE HNO ID: [id number] Author: Rosita AvilaRn) SARANYA Steinberg Service: ? Author Type: Registered Nurse Type: ED Notes Filed: 10/28/2020 9:52 AM Note Text: Bed: 36-ED Expected date: Expected time: Means of arrival: Comments: TRIAGE Normal [facility] ED PROV NOTEon 10-28-2020 ED PROV NOTE HNO ID: [id number] Author: Michele Yu DO Service: Emergency Medicine Author Type: Physician Type: ED Provider Notes Filed: 11/07/2020 6:40 PM Note Text: Attending Note I personally saw and examined the patient. I reviewed the resident's note. I agree with the resident's assessment and plan unless otherwise noted. This is a 29 year old male presenting with concerns for pneumonia in the setting of recent Covid diagnosis. Patient was tested positive on 23 October. States he has had some increased cough. He does still feel somewhat dyspneic. No pleuritic symptoms. He is able to control his fever with Tylenol. Sister was very ill intubated and on ECMO although she came home yesterday. Dad is still in the hospital with Covid as well. Physical Exam: Patient afebrile blood pressure 127/88 pulse 114 respirations 16 sat 95% on room air Heart regular no murmurs rubs or gallops Lungs clear Abdomen soft nontender good bowel sounds no guarding or rebound Extremities no significant edema Plan chest x-ray and if unremarkable likely just continue outpatient management as patient is nontoxic and not hypoxic. Michele Yu DO 11/07/[address] [facility] ED PROV NOTE HNO ID: [id number] Author: Michele Yu DO Service: Emergency Medicine Author Type: Physician Type: ED Provider Notes Filed: 11/07/2020 6:41 PM Note Text: ED Provider Note Patient Name: Charo Shukla SERVICE DATE: 10/28/20 History Patient presents with: Covid19 Concern: pt is positive covid, c/o symptoms since 10/21/20, pt c/o worsening SOB, NAD in triage This patient is a 29-year-old male with history of intermittent asthma who presents to the ED for worsening COVID-19 symptoms. Patient began to have symptoms of COVID-19 on 10/21/2020, he tested positive for COVID-19 on 10/24/2020. Patient states that he continues to have severe coughing fits when he lies flat as well as shortness of breath. He has been using Tylenol every 6 hours as needed for fever headaches and muscle aches with moderate relief of his symptoms. Patient states that he is concerned that he may have developed pneumonia as he has had pneumonia in the past. He denies any chest pain. Patient does have an albuterol inhaler at home but states that he has not been using it. No past medical history on file. No past surgical history on file. No family history on file. Social History Tobacco Use - Smoking status: Not on file Substance and Sexual Activity - Alcohol use: Not on file - Drug use: Not on file - Sexual activity: Not on file ALLERGIES Allergen Reactions - Amoxicillin-Pot Cla* Unknown - Ceftriaxone Unknown - Codeine - Isopropyl Alcohol Unknown - Prednisolone Unknown Review of Systems Constitutional: Negative for chills, fatigue and fever. HENT: Negative for congestion, ear pain and sore throat. Eyes: Negative for pain, redness and visual disturbance. Respiratory: Positive for cough and shortness of breath. Negative for chest tightness and wheezing. Cardiovascular: Negative for chest pain, palpitations and leg swelling. Gastrointestinal: Negative for abdominal pain, blood in stool, constipation, diarrhea, nausea and vomiting. Endocrine: Negative for polydipsia and polyuria. Genitourinary: Negative for dysuria, flank pain, frequency and hematuria. Musculoskeletal: Negative for myalgias. Skin: Negative for color change and rash. Neurological: Negative for dizziness, speech difficulty, weakness, light-headedness, numbness and headaches. Psychiatric/Behavioral: Negative for confusion and suicidal ideas. Physical Exam BP 127/88 Pulse 114 Temp (Src) 99.3 (Oral) Resp 16 Ht 5' 8 (1.73m) Wt 230 lb (104.3kg) SpO2 95% BMI 34.98 kg/(m2). O2 Therapy: Room Air Physical Exam Vitals and nursing note reviewed. Constitutional: General: He is not in acute distress. Appearance: Normal appearance. HENT: Head: Normocephalic and atraumatic. Right Ear: Tympanic membrane normal. Left Ear: Tympanic membrane normal. Mouth/Throat: Mouth: Mucous membranes are moist. Eyes: Extraocular Movements: Extraocular movements intact. Conjunctiva/sclera: Conjunctivae normal. Pupils: Pupils are equal, round, and reactive to light. Cardiovascular: Rate and Rhythm: Regular rhythm. Tachycardia present. Pulses: Normal pulses. Heart sounds: No murmur heard. No friction rub. No gallop. Pulmonary: Effort: Pulmonary effort is normal. Breath sounds: Normal breath sounds. No wheezing, rhonchi or rales. Abdominal: General: Abdomen is flat. Bowel sounds are normal. Palpations: Abdomen is soft. Tenderness: There is no abdominal tenderness. There is no right CVA tenderness, left CVA tenderness, guarding or rebound. Musculoskeletal: Right lower leg: No edema. Left lower leg: No edema. Skin: General: Skin is warm and dry. Capillary Refill: Capillary refill takes less than 2 seconds. Findings: No rash. Neurological: General: No focal deficit present. Mental Status: He is alert and oriented to person, place, and time. Cranial Nerves: No cranial nerve deficit. Sensory: No sensory deficit. Motor: No weakness. Coordination: Coordination normal. Gait: Gait normal. Deep Tendon Reflexes: Reflexes normal. Psychiatric: Mood and Affect: Mood normal. Behavior: Behavior normal. Thought Content: Thought content normal. Diagnostic Testing ED Labs Ordered and Reviewed - No data to display Procedures ED Course / Clinical Impression Clinical Impressions as of Oct 29 1531 COVID-19 Pneumonia of right upper lobe due to infectious organism MDM / Disposition / Plan This patient is a 29-year-old male who presents to the ED for worsening COVID-19 symptoms. Upon initial arrival to the ED, patient was mildly tachycardic with heart rate in the 110s. All other vital signs are within normal limits. SPO2 95% while on room air. Patient appeared to be in no acute distress, no evidence of respiratory distress, no retractions, conversational dyspnea, accessory muscle use of respiration. Lungs are clear to auscultation bilaterally heart tachycardic but regular rhythm without murmurs. Initial concern is for bacterial pneumonia superimposed on top of COVID-19, pneumothorax, asthma exacerbation. We will obtain chest x-ray, EKG and treat patient's symptoms with Tylenol and albuterol inhaler. EKG showed normal sinus rhythm without any concerning arrhythmias or ST or T wave changes. All intervals are within normal limits. Patient does have evidence of right upper lobe pneumonia on chest x-ray. Patient was ambulated in the hallway with pulse oximeter, SPO2 remained 94%. Patient reports improvement of symptoms following albuterol inhaler. Patient will be discharged home with a pulse oximeter with instructions to return to the ED for any readings less than 90%. Patient also given a prescription for doxycycline x7 days to treat right upper lobe pneumonia. In addition, patient was instructed to use his albuterol inhaler scheduled every 6 hours for the next 2 days. Then to use every 4-6 hours as needed. Patient is agreeable to plan discharge all questions have been answered to patient satisfaction. SIGNATURE: DO Lelia Jeffers (Duyen) Asad Resident 10/28/20 1534 Please see separate attending physician note Michele Yu DO 11/07/[address] [facility] XR CHEST 1V FRONTALon 2020 XR CHEST 1V FRONTAL * * *Final Report* * * DATE OF EXAM: Oct 28 2020 10:42AM AKX 5290 - XR CHEST 1V FRONTAL / PROCEDURE REASON: Acute respiratory illness * * * * Physician Interpretation * * * * EXAMINATION: CHEST RADIOGRAPH (SINGLE VIEW AP OR PA) CLINICAL HISTORY: Acute respiratory illness Covid positive. Increased shortness of breath. MQ: XC1_5 Comparison: 10/23/2020. RESULT: Lines, tubes, and devices: None. Lungs and pleura: Interval development of right upper lobe pneumonia. Probable trace right pleural effusion. No evidence of pneumothorax. Cardiomediastinal silhouette: Unchanged. Other: No new osseous abnormalities. IMPRESSION: Interval development of right upper lobe pneumonia. Probable trace right pleural effusion. Ob Tech: [facility] Transcribe Date/Time: Oct 28 2020 10:43A Dictated by : ROC CROSS MD This examination was interpreted and the report reviewed and electronically signed by: ROC CROSS MD on Oct 28 2020 10:47AM EST [id number] Normal [facility] 2019 CORONAVIRUSon 2018 CORONAVIRUS COVID 19 SOURCE COMMODITY ANALYST: UPPER RESPIRATORY TRACT SWAB COVID 19 RESULT COMMODITY ANALYST: Positive for COVID19 (SARS CoV2) by PCR. This test was developed and its performance characteristics determined by [facility] [place]. This test has been authorized by FDA under an Emergency Use Authorization (EUA). This test has been validated in accordance with the FDA's Guidance Document Policy for Diagnostics Testing in Laboratories Certified to Perform High Complexity Testing under CLIA prior to Emergency use Authorization for Coronavirus Disease 2019 during the Public Health Emergency issued on September 26, 2019. Test performed by [facility], [facility] [place], [facility] [place] [address]. [facility] Comment on above: Performed By: #### C OVID ####[facility] REFERENCE LABCLIA [id number] [place] [address] ALLIED HEALTHon 10-24-2020 ALLIED HEALTH HNO ID: [id number] Author: Destin Love (Rt) Service: Radiology Author Type: Donations Attendant Type: Allied Health Filed: 10/23/2020 10:57 PM Note Text: Radiology Service Progress Note PATIENT NAME: Charo Shukla DATE OF SERVICE: October 23, 2020 TIME: 10:56 PM PATIENT IDENTITY VERIFICATION COMPLETED USING TWO (2) IDENTIFIERS: Name and Date of confirmed by patient verbally and Name and Date of confirmed by identification band. FALL SCREENING: Has the patient had 2 falls in the last year or 1 fall with injury or currently using an Ambulatory Assistive Device (Walker, Cane, Wheelchair, Crutches, etc.)? Emergency Room Patient: Screened in ED PATIENT GENDER DATA: Male PATIENT RELEVANT IMPLANT DATA REVIEWED: Not Applicable RADIOLOGY DEPARTMENT: General X-ray: Exam(s) Completed: Chest X-Ray PERIPHERAL IV DATA: Not applicable SIGNED BY: RT Ivan October 23, 2020 10:[address] [facility] ED NOTEon 10-24-2020 ED NOTE HNO ID: [id number] Author: Hanny AvilaRn) SARANYA Yoder Service: Emergency Medicine Author Type: Registered Nurse Type: ED Notes Filed: 10/24/2020 12:29 AM Note Text: ambulated with out any difficulty sp02 ranged between 93-95% Normal [facility] ED NOTE HNO ID: [id number] Author: Jose R AvilaRn) SARANYA Wheeler Service: ? Author Type: Registered Nurse Type: ED Notes Filed: 10/23/2020 11:56 PM Note Text: Bed: 28-ED Expected date: Expected time: Means of arrival: Comments: triage Normal [facility] ED PROV NOTEon 10-24-2020 ED PROV NOTE HNO ID: [id number] Author: Kayley Puente MD Service: Emergency Medicine Author Type: Physician Type: ED Provider Notes Filed: 10/24/2020 4:11 AM Note Text: ED Provider Note Patient Name: Charo Shukla SERVICE DATE: 10/23/20 History Patient presents with: Covid19 Concern: pt c/o covid symptoms X 2 days, states his sister is in the ICU intubated with covid, pt is currently staying at his sisters home with her boyfriend who is also positive Patient is a 29-year-old male presents emergency department for concerns for COVID-19 infection. Sister is intubated and on ECMO in the ICU at [facility]. Patient was exposed to his sister. Patient has a history of asthma. Patient is concerned because he does not want to be sick is a sister. Patient states he has left-sided chest pain at baseline with no significant exacerbations at this time. Patient endorses fatigue and weakness but no measured fevers at home. He denies any nausea or vomiting. Patient has any loss of sense of taste or smell. Patient has no other acute complaints at this time. No past medical history on file. No past surgical history on file. No family history on file. Social History Tobacco Use - Smoking status: Not on file Substance and Sexual Activity - Alcohol use: Not on file - Drug use: Not on file - Sexual activity: Not on file ALLERGIES Allergen Reactions - Codeine Review of Systems Constitutional: Positive for fatigue. Negative for activity change, appetite change, chills and fever. HENT: Negative for congestion, ear discharge, ear pain and sinus pain. Eyes: Negative for pain and redness. Respiratory: Negative for chest tightness, shortness of breath and wheezing. Cardiovascular: Negative for chest pain, palpitations and leg swelling. Gastrointestinal: Negative for abdominal pain, constipation, diarrhea, nausea and vomiting. Genitourinary: Negative for difficulty urinating, frequency and hematuria. Musculoskeletal: Negative for back pain, joint swelling and neck pain. Skin: Negative for color change, rash and wound. Neurological: Positive for weakness. Negative for dizziness, syncope and headaches. Psychiatric/Behavioral: Negative for agitation, confusion and decreased concentration. All other systems reviewed and are negative. Physical Exam BP 143/93 Pulse 105 Temp (Src) 98.6 (Oral) Resp 16 Ht 5' 9 (1.75m) Wt 230 lb (104.3kg) SpO2 95% BMI 33.95 kg/(m2). O2 Therapy: Room Air Physical Exam Vitals and nursing note reviewed. Constitutional: General: He is not in acute distress. Appearance: Normal appearance. He is well-developed. He is not ill-appearing or toxic-appearing. HENT: Head: Normocephalic and atraumatic. Right Ear: External ear normal. Left Ear: External ear normal. Nose: Nose normal. Mouth/Throat: Mouth: Mucous membranes are moist. Pharynx: Oropharynx is clear. Eyes: Extraocular Movements: Extraocular movements intact. Pupils: Pupils are equal, round, and reactive to light. Cardiovascular: Rate and Rhythm: Normal rate and regular rhythm. Pulmonary: Effort: Pulmonary effort is normal. Breath sounds: Normal breath sounds. Abdominal: General: Abdomen is flat. There is no distension. Palpations: Abdomen is soft. Tenderness: There is no abdominal tenderness. Musculoskeletal: General: No swelling, tenderness, deformity or signs of injury. Cervical back: Normal range of motion and neck supple. Skin: General: Skin is warm and dry. Capillary Refill: Capillary refill takes less than 2 seconds. Neurological: General: No focal deficit present. Mental Status: He is alert and oriented to person, place, and time. Diagnostic Testing ED Labs Ordered and Reviewed - No data to display Procedures ED Course / Clinical Impression Clinical Impressions as of Oct 24 56 Encounter for laboratory testing for COVID-19 virus Suspected COVID-19 virus infection MDM / Disposition / Plan Chest x-ray did not show any acute abnormalities. EKG showed normal sinus rhythm. No evidence of any ischemia. Patient had nonemergent Covid testing sent. Patient updated that his results will come within the next 24 to 48 hours. Patient given strict return precautions. Patient given COVID-19 discharge instructions. Patient verbalized understanding is amenable this plan. Patient discharged home at this time. The patient was DISCHARGED: Counseled patient regarding radiology results AND suspected diagnosis AND need for follow-up. Discharged home with verbal and written instructions. They were instructed to return as needed for persistent or worsening symptoms or any new concerns. Condition at time of disposition: stable SIGNATURE: DO Martin Devlin (Res) DO Selvin Resident 10/24/2058 I have personally seen and examined this patient. I have fully participated in the care of this patient with the resident. I have reviewed all pertinent clinical information, including history, physical exam and plan I was present for the significant portion of the procedure/(s) Physical exam: HEENT: Normocephalic, atraumatic, pupils equal round reactive to light, EOMI Neck: Supple no lymphadenopathy cardiac: Regular rate and rhythm, normal S1-S2, no murmurs rubs or gallops lungs: Clear to auscultation bilaterally, no wheezes, rales, rhonchi abdomen: Soft, nontender, nondistended, normoactive bowel sounds, no peritoneal signs extremities: No cyanosis, no edema neuro: Cranial nerves II through XII grossly intact, moving all extremities equally, no focal deficits, gait is normal, 5 over 5 strength in upper and lower extremities, sensation intact bilateral upper and lower extremities, no cerebellar signs Kayley Puente MD 10/24/[address] [facility] ED Triage Noteon 10-24-2020 ED Triage Note HNO ID: [id number] Author: Rowena Garcia (Shani) EVIN Olson Service: Emergency Medicine Author Type: Physician Information Systems Planner Type: ED Triage Notes Filed: 10/23/2020 10:42 PM Note Text: ED INTAKE NOTE Patient Name: Charo Shukla Service Date: 10/23/20 BRIEF HPI: Patient presents to the emergency department with concern for COVID-19. Symptom onset was 2 days ago. He endorses dry cough, shortness of breath, chills, headache, sore throat, body aches, rhinorrhea, fatigue. He states he has intermittent chest pain that is worse with coughing. He states his sister is currently intubated in the ICU with Covid. He states he has been staying at his sister's house with her boyfriend who is also sick. Pt has h/o asthma. BRIEF EXAM: Awake and Alert CTAB TERRELL tachycardic INTAKE WORKUP: EKG Imaging: XR: chest SIGNATURE: Rowena Olson PA-C Normal [facility] XR CHEST 1V FRONTALon 2020 XR CHEST 1V FRONTAL Final Report DATE OF EXAM: Oct 23 2020 10:55PM AKX 5290 - XR CHEST 1V FRONTAL / PROCEDURE REASON: Shortness of breath Physician Interpretation EXAMINATION: CHEST RADIOGRAPH (SINGLE VIEW AP OR PA) CLINICAL HISTORY: Shortness of breath MQ: XC1_5 Comparison: None RESULT: Lines, tubes, and devices: None. Lungs and pleura: No consolidation. No lung mass. No pleural effusion. Cardiomediastinal silhouette: Normal cardiomediastinal silhouette. Other: No bony abnormalities. IMPRESSION: No acute radiographic abnormality. [facility] Transcribe Date/Time: Oct 23 2020 11:29P Dictated by : YAN POST MD This examination was interpreted and the report reviewed and electronically signed by: YAN POST MD on Oct 23 2020 11:29PM EST Normal [facility] Vital Signs Date Time Vital Sign Value Performing Clinician Facility 12-26-2023 10:310400 Body height 160.02 cm [facility] 12-26-2023 10:310400 Body mass index (BMI) [Ratio] 38 kg/m2 [facility] 12-26-2023 10:31-0400 Body temperature 98.3 [degF] [facility] 12-26-2023 10:31-0400 Body weight 97.52 kg [facility] 12-26-2023 10:31-0400 Diastolic blood pressure 89 mm[Hg] [facility] 12-26-2023 10:31-0400 Heart rate 89 /min [facility] 12-26-2023 10:31-0400 Systolic blood pressure 130 mm[Hg] [facility] 10-08-2023 13:07-0400 Body height 160.02 cm [facility] 10-08-2023 13:07-0400 Body mass index (BMI) [Ratio] 38.3 kg/m2 [facility] 10-08-2023 13:07-0400 Body weight 98.2 kg [facility] 10-08-2023 13:07-0400 Diastolic blood pressure 92 mm[Hg] [facility] 10-08-2023 13:07-0400 Heart rate 88 /min [facility] 10-08-2023 13:07-0400 Systolic blood pressure 137 mm[Hg] [facility] 04-25-2023 14:00-0400 Body height 160.02 cm Christine White Other [employer] [facility] Other 04-25-2023 14:00-0400 Body mass index (BMI) [Ratio] 41.62 kg/m2 Christine White Other [employer] [facility] Other 04-25-2023 14:00-0400 Body weight 106.6 kg Christine White Other [employer] [facility] Other 04-25-2023 14:00-0400 Diastolic blood pressure 98 mm[Hg] Christine White Other [employer] [facility] Other 04-25-2023 14:00-0400 Systolic blood pressure 136 mm[Hg] Christine White Other [employer] [facility] [employer] Other 01-10-2023 10:15-0400 Body height 160.02 cm Christine White Other [facility] Other 01-10-2023 10:15-0400 Body mass index (BMI) [Ratio] 37.37 kg/m2 Christine White Other [facility] Other 01-10-2023 10:15-0400 Body weight 95.71 kg Christine White Other [facility] Other 01-10-2023 10:15-0400 Diastolic blood pressure 85 mm[Hg] Christine White Other [facility] Other 01-10-2023 10:15-0400 Systolic blood pressure 126 mm[Hg] Christine White Other [facility] Other 09-14-2022 15:00-0500 Body height 160.02 cm Christine White Other [facility] Other 09-14-2022 15:00-0500 Body mass index (BMI) [Ratio] 34.18 kg/m2 Christine White Other [facility] Other 09-14-2022 15:00-0500 Body weight 87.54 kg Christine White Other [facility] Other 09-14-2022 15:00-0500 Diastolic blood pressure 72 mm[Hg] Christine White Other [facility] Other 09-14-2022 15:00-0500 SaO2% (BldA) [Mass fraction] 98 % Christine White Other [facility] Other 09-14-2022 15:00-0500 Systolic blood pressure 110 mm[Hg] Christine White Other [facility] Other Encounters Encounter Date Encounter Type Care Provider Facility Start: 12-26-2023 End: 12-26-2023 ambulatory [facility] Work Phone: Start: 12-26-2023 End: 12-26-2023 Patient encounter procedure [facility] Physician [facility] Work Phone: Start: 10-08-2023 End: 10-08-2023 Patient encounter procedure [facility] Physician [facility] Work Phone: Start: 04-25-2023 End: 04-25-2023 ambulatory Christine White Other [facility] Other Start: 04-25-2023 Office outpatient vi sit 15 minutes Christine White [facility] Start: 04-18-2023 End: 04-18-2023 ambulatory Christine White Other [facility] Other Start: 04-18-2023 Telephone encounter Christine White [facility] Start: 02-08-2023 End: 02-08-2023 ambulatory Christine White Other [facility] Other Start: 02-08-2023 Telephone encounter Christine White [facility] Start: 01-25-2023 End: 01-25-2023 ambulatory Christine White Other [facility] Other Start: 01-25-2023 Telephone encounter Christine White [facility] Start: 01-10-2023 End: 01-10-2023 ambulatory Christine White Other [facility] Other Start: 01-10-2023 Office outpatient vi sit 15 minutes Christine White [facility] Start: 10-10-2022 End: 10-10-2022 ambulatory Christine White Other [facility] Other Start: 10-10-2022 Telephone encounter Christine White [facility] Start: 09-26-2022 End: 09-26-2022 ambulatory Christine White Other [facility] Other Start: 09-26-2022 Telephone encounter Christine Christopher [facility] Start: 09-14-2022 End: 09-14-2022 ambulatory Christinedarinel White Other [facility] Other Start: 09-14-2022 Office outpatient vi sit 25 minutes Christine White [facility] Start: 09-13-2022 End: 09-13-[address] CHRISTINE WHITE Facility:[facility] Start: 08-28-2022 (Televisit) Televisit Christine Gonzalse [facility] Start: 08-28-2022 End: 08-28-2022 ambulatory Christine White Other [facility] Other Start: 05-12-2022 End: 05-12-[address] CHRISTINE WHITE Facility:[facility] Start: 09-18-2021 End: 09-19-[address] CHRISTINE WHITE Facility:[facility] Procedures Date Procedure Procedure Detail Performing Clinician Start: 02-21-2018 General examination of patient Christine White Other Viral screening Christine White Other Plan of Treatment Date Care Activity Detail Author Comprehensive metabo lic 2000 panel - Serum or Plasma [facility] enter [facility] Immunizations Immunization Date Immunization Notes Care Provider Fa cility 05-26-2020 influenza virus vaccine, split virus (incl. purified surface antigen) Christinedarinel White Other [facility] Other 05-26-2020 influenza virus vaccine, unspecified formulation [facility] Payers Date Payer Category Payer Unknown [id number] 1992 Unknown [id number] 1992 Unknown [id number] 1957 Self-pay [id number] 1957 Unknown [id number] Medicaid [place] [id number] 18 Unknown [facility] [id number] Social History Date Type Detail Facility Unknown if ever smoked [facility] Other Sex Assigned At Sex Assigned At Bir th [facility] Other Start: 1990 Sex Assigned At Male F [facility] Clinical Notes 10-25-2020 to 04-25-2023 Note Date & Type Note Facility 04-25-2023 Evaluation note Encounter Date Diagnosis Assessment Notes Mar, Type 2 diabetes mellitus with hyperglycemi a, without long-term current use of insulin (ICD-10 - E11.65) Diabetes is not well controlled. No hypoglycemia. Home blood sugars reviewed. Start ozempic. Patient is to be careful with diet and meal timing. Understands the importance of this. Coupons given. He does not have insurance and finances are a limiting factor for treatment and rx. [facility] Other 07-14-2023 Evaluation note* Encounter Date Diagnosis Assessment Notes Treatment Notes Treatment Clinical Notes Jan, Type 2 diabetes mellitus with hyperglycemia, without long-term current use of insulin (ICD-10 - E11.65) [facility] Other 06-30-2023 Evaluation note* Encounter Date Diagnosis Assessment Notes Treatment Notes Treatment Clinical Notes Dec, Type 2 diabetes mellitus with hyperglycemia, without long-term current use of insulin (ICD-10 - E11.65) [facility] Other 06-15-2023 Evaluation note* Encounter Date Diagnosis Assessment Notes Treatment Notes Treatment Clinical Notes Dec, Type 2 diabetes mellitus with hyperglycemia, without long-term current use of insulin (ICD-10 - E11.65) Increase glipizide, add actos. Will call in 2 weeks for update. Advised he followup sooner if glucose >200 rather than waiting 3 months. Dec, Depressed mood (ICD-10 - R45.89) Will take med that his father is not using. [facility] Other 02-17-2023 Evaluation note* Encounter Date Diagnosis Assessment Notes Treatment Notes Treatment Clinical Notes Aug, Chest pain on breathing (ICD-10 - R07.1) Benefit from echo and stress test to evaluate heart function and any underlying CAD Aug, Type 2 diabetes mellitus with hyperglycemia, without long-term current use of insulin (ICD-10 - E11.65) New diagnosis. Declines diabetes education at this time. We will switch metformin to glipizide due to diarrhea. Offered glucometer and strips but father states states he will purchase them at [employer]. Aug, Essential (primary) hypertension (ICD-10 - I10) Blood pressure normal today continue lisinopril. New diagnosis. Aug, Other chest pain (ICD-10 - R07.89) [facility] Other 01-31-2023 Evaluation note* Encounter Date Diagnosis Assessment Notes Treatment Notes Treatment Clinical Notes Jul, Gastroenteritis (ICD-10 - K52.9) Discussed symptom management. Advised to take pbim-wdy-ksnxfju medicines as instructed. Work note given. Encouraged him to stay hydrated to prevent the possible dehydration headaches he reported. [facility] Other 03-30-2021 NoteHNO ID: [id number] Author: Jackie Husain [facility] Service: ? Author Type: ? Type: Progress Notes Filed: 10/25/2020 1:12 PM Note Text: COVID COMMUNITY MONITORING PROGRAM Provider Action/FYI: Day 3 Patient aware of results Symptoms: body aches, fever,cough, slight chest pain Told patient if any symptoms worsen contact PCP or nurse electronic train control technician Monitoring Call: Date of symptoms onset: No data recorded Patient is COVID-19 positive Contact made with patient Yes Patient identified by name and . Discussed care with patient Initial intake? Yes (Positive) - Bethanie, my name is Jackie MARTINS and I am calling from the [facility]. I am calling to notify you that your COVID-19 testing was positive. I understand this is worrisome to you and want you to know we are here to help you. I am contacting you to help you understand what this means, monitor if you are getting better or worse and how we can work together to help you recover. Also, your local health department will also be contacting you, if they have not yet already. The Health Department will provide you with important information and help you and your family work through this infection. It is very important to talk with them and provide any needed information. In some cases, your employer may provide additional guidance as well Diagnosed with COVID-19 on 10/24 Symptom start date: 10/23 Confirm PCP: Erika Shirley MD Are you able to follow the quarantine guidelines? Yes If needed, we can help get you scheduled with your PCP for a follow-up appointment if you are still symptomatic in 10-14 days. If you do not have a PCP we can arrange one for you. If you have a non-[facility] PCP, please follow up with them as needed. Your PCP will need to provide guidance to you on discontinuation of quarantine and what you may need to return to work. You may not need an appointment to get what you need so please contact your PCP with questions specific to both when you are clinically recovered. (For [facility] Caregivers only: Occupational Health will provide the guidance to you on return to work and discontinuation of isolation). SYMPTOMS: NOTE TO CAREGIVER: ANSWER THE COVID-19 Caregiver Monitoring FLOWSHEET AND COVID Disposition QUESTIONS NOW OUTCOME: COVID-19 Caregiver Adult Monitoring COVID-19 Monitoring 10/25/2020 Caregiver Entered Response Yes Are you feeling short of breath today? No Are you having a cough today? Yes Has it been worse over the past 24 hours? No Are you vomiting? No Are you experiencing diarrhea? No Highest Temperature - last 24 hours? (Caregiver Entered) 99.8 Do you have a pulse oximeter / Oxygen Monitor at home No Temperature (Patient Entered) (None) SpO2 (Patient Entered) (None) We would like to make sure you have what you need so that your basic needs are met- including your personal safety, food, housing and medications?? Would you like to speak with a social work molybdenum steamer operator to help give you support for any of these needs? No It can be normal to feel anxious or down during a time like this. Would you like to talk to a mental health professional about how you have been feeling? No How to Manage Common Symptoms Associated with COVID for Adults Fever- Fever is a temperature over 100.4 F and can occur when the body is fighting an infection. To help treat a fever: - Drink plenty of fluids and stay well hydrated. - Eat small amounts of easy to digest food. - Rest. Your body needs rest to recover, but getting up and moving around the house frequently is a good idea. You should try to continue doing your normal daily activities (bathing, toileting, grooming, cooking), though you will probably feel tired, and need to rest often. - Avoid any heavy activity or exercise, as this will increase your body temperature. - Dress in light clothing and stay covered in a light sheet. Keep the room temperature cool. - Take a slightly warm (not cold or cool) bath, or apply damp washcloths to the forehead and wrists. Cough- Cough is a common symptom associated with COVID and can be bothersome. To help treat a cough: - Stay well hydrated. Try warm water or tea with lemon and/or honey to help soothe the cough. - Use a humidifier to add moisture to the air. - Try a product with menthol, like a cough drop or a rub for your chest such as Vicks, which can help reduce cough. - Try cough drops. - Avoid smoking and other strong odors or perfumes. - Try breathing exercises to keep your lungs open and clear. Take a big deep breath through your nose and hold for 5 seconds before slowly releasing. Repeat frequently, while you are awake. Congestion- Runny nose or nasal congestion can occur with COVID. Treatment can help relieve symptoms: - Try OTC nasal saline spray, or nasal saline rinse to relieve mucus congestion. - Nasal strips can help keep nasal passages open, to increase airflow (more content not included)...[facility]03-30-2021 NotePatient Outreach ([facility]) CHARO SHUKLA ([id number]) 1990 M Date Time Provider Department 10/25/20 JACKIE HUSAIN BRIDGET During your visit today, we recorded the following information about you: Jackie Husain PSS 10/25/2020 1:12 PM Signed COVID COMMUNITY MONITORING PROGRAM Provider Action/FYI: Day 3 Patient aware of results Symptoms: body aches, fever,cough, slight chest pain Told patient if any symptoms worsen contact PCP or nurse electronic train control technician Monitoring Call: Date of symptoms onset: No data recorded Patient is COVID-19 positive Contact made with patient Yes Patient identified by name and . Discussed care with patient Initial intake? Yes (Positive) - Bethanie, my name is Jackie Husain PSS and I am calling from the [facility]. I am calling to notify you that your COVID-19 testing was positive. I understand this is worrisome to you and want you to know we are here to help you. I am contacting you to help you understand what this means, monitor if you are getting better or worse and how we can work together to help you recover. Also, your local health department will also be contacting you, if they have not yet already. The Health Department will provide you with important information and help you and your family work through this infection. It is very important to talk with them and provide any needed information. In some cases, your employer may provide additional guidance as well Diagnosed with COVID-19 on 10/24 Symptom start date: 10/23 Confirm PCP: Erika Shirley MD Are you able to follow the quarantine guidelines? Yes If needed, we can help get you scheduled with your PCP for a follow-up appointment if you are still symptomatic in 10-14 days. If you do not have a PCP we can arrange one for you. If you have a non-[facility] PCP, please follow up with them as needed. Your PCP will need to provide guidance to you on discontinuation of quarantine and what you may need to return to work. You may not need an appointment to get what you need so please contact your PCP with questions specific to both when you are clinically recovered. (For [facility] Caregivers only: Occupational Health will provide the guidance to you on return to work and discontinuation of isolation). SYMPTOMS: NOTE TO CAREGIVER: ANSWER THE COVID-19 Caregiver Monitoring FLOWSHEET AND COVID Disposition QUESTIONS NOW OUTCOME: COVID-19 Caregiver Adult Monitoring COVID-19 Monitoring 10/25/2020 Caregiver Entered Response Yes Are you feeling short of breath today? No Are you having a cough today? Yes Has it been worse over the past 24 hours? No Are you vomiting? No Are you experiencing diarrhea? No Highest Temperature - last 24 hours? (Caregiver Entered) 99.8 Do you have a pulse oximeter / Oxygen Monitor at home No Temperature (Patient Entered) (None) SpO2 (Patient Entered) (None) We would like to make sure you have what you need so that your basic needs are met- including your personal safety, food, housing and medications?? Would you like to speak with a social work molybdenum steamer operator to help give you support for any of these needs? No It can be normal to feel anxious or down during a time like this. Would you like to talk to a mental health professional about how you have been feeling? No How to Manage Common Symptoms Associated with COVID for Adults Fever- Fever is a temperature over 100.4 F and can occur when the body is fighting an infection. To help treat a fever: - Drink plenty of fluids and stay well hydrated. - Eat small amounts of easy to digest food. - Rest. Your body needs rest to recover, but getting up and moving around the house frequently is a good idea. You should try to continue doing your normal daily activities (bathing, toileting, grooming, cooking), though you will probably feel tired, and need to rest often. - Avoid any heavy activity or exercise, as this will increase your body temperature. - Dress in light clothing and stay covered in a light sheet. Keep the room temperature cool. - Take a slightly warm (not cold or cool) bath, or apply damp washcloths to the forehead and wrists. Cough- Cough is a common symptom associated with COVID and can be bothersome. To help treat a cough: - Stay well hydrated. Try warm water or tea with lemon and/or honey to help soothe the cough. - Use a humidifier to add moisture to the air. - Try a product with menthol, like a cough drop or a rub for your chest such as Vicks, which can help reduce cough. - Try cough drops. - Avoid smoking and other strong odors or perfumes. - Try breathing exercises to keep your lungs open and clear. Take a big deep breath through your nose and hold for 5 seconds before slowly releasing. Repeat frequently, while you are awake. Congestion- Runny nose or nasal congestion can occur with COVID. (more content not included)...[facility] noteNo InformationNortConemaugh [facility] Other Evaluation note* Diagnosis Onset Date Resolution Status Type 2 diabetes mellitus with hyperglycemia acute [facility] Work Phone: History general Narrative - Reported* Type Description Date Medical History Bilateral impacted cerumen Medical History Acute asthma Medical History Acute bronchitis with bronchospa sm Medical History Epigastric fullness Medical History Left foot pain Medical History Spasm of thoracic back muscle Medical History Diabetes Medical History Hypertension [facility] Other Hiszxpb general Narrative - Reported* Type Description Date Medical History Bilateral impacted cerumen Medical History Acute asthma Medical History Acute bronchitis with bronchospa sm Medical History Epigastric fullness Medical History Left foot pain Medical History Spasm of thoracic back muscle Medical History Diabetes Medical History Hypertension Surgical History Problem Title : past surgical history reviewed, Problem Description : past surgical history reviewed, Problem Comment : reviewed - no changes required, Problem Status : Active, [facility] Other Summary Purpose Family History Relationship Condition Age at Onset Recorded Date/T bambi Not Specified Unknown Advance Directives Advance Directive Response Recorded Date/ Time Advance Directives No October 02 4:56pm Hospital Course Note HNO ID: [id number] Author: Erna Douglas MD Service: General Internal Medicine Author Type: Physician Type: Discharge Summary Filed: 11/07/2020 3:01 PM Note Text: DISCHARGE SUMMARY PATIENT NAME: Charo Shukla Code Status: Not on file Highest Readmission Risk Score: 15 The 30 day readmissions risk score is derived from an internally validated risk model which evaluates patient level characteristics, utilization history, medication orders and lab results up until the day of discharge. Patients with a score of 40 or above are considered highest risk for readmission. Specific patient level drivers will be listed at the bottom of the summary. Admission Information Admission Information ADMIT DATE: 10/31/2020 DISCHARGE DATE: 11/07/20 MY DOCTORS AND MEDICAL TEAM: [facility] Doctor: Gadiel Douglas MD Primary Care Provider: Christine Puente My Medical Team Members: Treatment Team: Attending Provider: Gadiel Douglas MD Primary Service: Tayo Hagen Consulting: Dandy (more content not included)... Chief Complaint and Reason for Visit Chief Complaint Check Up head congetion Reason for Visit Type 2 diabetes louis itus with hyperglycemia Additional Source Comments (unrecognized sect ion and content) No Status Records FoundNo Status Records FoundNo Status Records FoundNo Status Records Found INFORMATION SOURCE (unrecogn ized section and content) DATE CREATED AUTHOR 11/07/2020 [facility] DATE CREATED AUTHOR AUTHOR'S ORGANIZ ATION 11/22/2020 [facility] DATE CREATED AUTHOR AUTHOR'S ORGANIZ ATION 08/27/2021 [facility] DATE CREATED AUTHOR AUTHOR'S ORGANIZ ATION 09/17/2022 [facility] REASON FOR VISIT (unrecogniz ed section and content) diarrhea,vomiting, heahacheT BHmessagemessageCheck Upglucose readingsrefillsNew Medication3 month Care Teams (unrecognized sec tion and content) Team Status: Active Member Role Status Dates Christine White MD Primary Care Provider Active Team Status: Inactive Member Role Status Dates Christine White MD Primary Care Provide r, Attending Provider Active Start: October 08, 2023 End: October 08, 2023 Team Status: Inactive Member Role Status Dates Christine White MD Primary Care Provide r, Attending Provider Active Start: December 26, 2023 End: December 26, 2023 Goals (unrecognized section and content) Goals may be documented in a n alternate section FOR RECORDS PERTAINING TO PATIENTS WHO ARE OR HAVE BEEN ENROLLED IN A CHEMICAL DEPENDENCY/SUBSTANCEABUSE PROGRAM, SOME INFORMATION MAY BE OMITTED. This clinical summary was aggregated from multiple sources. Caution should be exercised in using it in the provision of clinical care. This summary normalizes information from multiple sources, and as a consequence, information in this document may materially change the coding, format and clinical context of patient data. In addition, data may be omitted in some cases. CLINICAL DECISIONS SHOULD BE BASED ON THE PRIMARY CLINICAL RECORDS. [facility] [employer] provides no warranty or guarantee of the accuracy or completeness of information in this document.
== END 2023-12-27 13:03 | disposition home or self-care (01) ==
PROVIDERS: Emergency Provider Emergency Medicine Emergency Medical Services; PCP Family Medicine
DX: S60.222A Contusion of left hand, initial encounter (principal); W23.0XXA Caught, crushed, jammed, or pinched between moving objects, initial encounter
CPT/HCPCS: 73130; 99283

== ENCOUNTER 2024-03-19 16:00 | Outpatient (REF) | payer OTHER, SELFPAY ==
--- OUTSIDE RECORDS SUMMARY | 2024-03-19 16:19 | XMS_ITS | CCD ---
Author Organization [facility] Care Team Providers Care Vice President Safety Name Role Phone DR CHRISTINE WHITE Primary Care Unavailable SÁNCHEZ, DR OSCAR Philip Consulting Unavailable SÁNCHEZ, DR OSCAR Philip Admitting Unavailable SÁNCHEZ, DR OSCAR Philip Attending Unavailable TEDDY HATCH Consulting Unavailable CHRISTOPHER, DR CHRISTINE Garcia Primary Care Unavailable SUKUMAR, BRISA Admitting Unavailable SUKUMAR, BRISA Attending Unavailable BENY .EVIN Consulting UnavailNAT Ta Consulting Unavailable CHRISTOPHER, DR CHRISTINE Garcia Primary Care Unavailable TCIO ., MONTSE Admitting Unavailable TICO ., MONTSE Attending Unavailable Warren Puente Consulting Unavailable TICO ., MONTSE Consulting Unavailable Christine White Unavailable Allergies Allergy Classification Reported Allergen(s) Allergy Type Date of Onset Reaction(s) Facility Clavulanate (1 source) Clavulanate Drug Allergy 12-26-19 24 [facility] Opioid Agonists (1 source) Codeine Drug Allergy 12-26-19 24 [facility] Penicillins (antibiotic) (1 source) Amoxicillin Drug Allergy 12-26-19 24 [facility] (6 sources) Amoxicillin / Clavulanate Drug Allergy 01-22-20 14 Unknown [facility] (1 source) cefTRIAXone Drug Allergy 03-29-20 15 [facility] (3 sources) Codeine Drug Allergy 01-22-20 14 Hives [facility] (1 source) Isopropyl Alcohol Drug Allergy 01-22-20 14 [facility] (1 source) prednisoLONE Drug Allergy 09-18-19 22 [facility] (4 sources) Amoxicillin / Clavulanate Drug Allergy Unknown [facility] Other (9 sources) Codeine Drug Allergy Unknown [facility] Other (8 sources) prednisoLONE Drug Allergy Unknown [facility]arrays Other (1 source) Allergies Reconciled Propensity to adverse reactions Unknown [facility] Other (5 sources) Prelone *CORTICOSTEROIDS * Propensity to adverse reactions 10-08-19 Unknown, [facility] (1 source) patient allergy list reviewed by nurse or physicia Propensity to adverse reactions 03-11-20 Comment:Done Microarrays Other (2 sources) Amoxicillin Drug Allergy 12-31-19 [facility] (2 sources) Clavulanate Drug Allergy 12-31-19 [facility] Medications Current Medications Medication Drug Class(es) Dates Sig (Normalized) Sig (Original) 0.25 MG, 0.5 MG Dose 3 ML semaglutide 0.68 MG/ML Pen Injector [Ozempic] (1 source) inject 0.5 mg by subcutaneous injection every week Ozempic (0.25 or 0.5 MG/DOSE) 2 MG/3ML 0.5mg Subcutaneous weekly for 28 days Active [id number] 200 actuat albuterol 0.09 mg/actuat metered dose inhaler (4 sources) beta2-Adrenergic Agonist Start: 12-31-2023 take 2 puff(s) by inhalation every four to six hours as needed Albuterol Sulfate Active 0 .ROUTE .COMPLEX 6.7 December 31, 2023 3:31pm INHALE 2 PUFFS EVERY 4 TO 6 HOURS NEEDED FOR SHORTNESS OF BREATH OR FOR WHEEZE Start: 11-27-2023 End: 12-31-2023 take 1 puff(s) by inhalation every four to six hours Albuterol Sulfate Discontinued 2 PUFF INHALATION EVERY 4-6 HOURS 6.7 November 27, 2023 12:00am December 31, 2023 3:31pm Start: 11-27-2023 take 1 puff(s) by in halation every four to six hours Albuterol Sulfate Active 2 PUFF INHALATION EVERY 4-6 HOURS 6.7 November 27, 2023 12:00am empagliflozin 10 mg oral tablet (10 sources) Sodium-Glucose Cotransporter 2 Inhibitor Start: 11-19-2023 End: 02-04-2024 take 1 tablet by mouth once daily Empagliflozin (Jardiance) 10 mg tablet Active 0 .ROUTE .COMPLEX February 04, 2024 12:08pm TAKE 1 TABLET BY MOUTH EVERY DAY Start: 10-23-2023 End: 11-19-2023 take 1 tablet by mouth once daily Empagliflozin (Jardiance) 10 mg tablet Discontinued 10 MG PO Daily October 23, 2023 12:00am November 19, 2023 4:35pm Flash Glucose Scanning Cope (Freestyle Batsheva 2 Cope) misc (3 sources) Start: 10-09-2023 Flash Glucose Scanning Cope (Freestyle Batsheva 2 Cope) misc Active 0 .Route 1 October 09, 2023 12:00am As directed Flash Glucose Sensor (Freestyle Batsheva 2 Sensor) kit (3 sources) Start: 10-09-2023 Flash Glucose Sensor (Freestyle Batsheva 2 Sensor) kit Active 0 .Route October 09, 2023 12:00am As directed FLUoxetine 20 mg oral capsule (4 sources) Serotonin Reuptake Inhibitor take 1 capsule by mouth every twenty-four hours FLUoxetine HCl 20 MG 1 capsule Orally Once a day Active take 1 capsule by mouth once alanna ly FLUoxetine HCl 20 MG 1 capsule Orally Once a day Active pioglitazone 30 mg oral tablet (4 [...] Drug Class(es) Dates Sig (Normalized) Sig (Original) Azithromycin (3 sources) Macrolide Antimicrobial Start: 12-26-2023 End: 12-31-2023 Azithromycin Discontinued 0 PO .COMPLEX December 26, 2023 12:00am December 31, 2023 11:55am For 250 mg dose pack: take 500 mg today (day 1), then 250 mg for 4 days (days 2-5) PO Start: 12-26-2023 Azithromycin A ctive 0 PO .COMPLEX December 26, 2023 12:00am For 250 mg dose pack: take 500 mg today (day 1), then 250 mg for 4 days (days 2-5) PO glipiZIDE er 10 mg 24 hr extended release oral tablet (18 sources) Sulfonylurea Start: 10-08-2023 End: 12-03-2023 take 10 mg by mouth once daily Glipizide Discontinued 10 MG PO Daily November 11, 2023 9:23am December 03, 2023 9:45am Start: 09-14-2022 take 1 tablet by amisha th every twenty-four hours glipiZIDE XL 5 MG 1 tablet with food Orally Once a day for 30 day(s) Aug, Active take 1 tablet by amisha th once daily at mealtime glipiZIDE ER 10 MG TAKE 1 TABLET BY MOUTH EVERY DAY WITH FOOD for 90 days Active lisinopril 10 mg oral tablet (8 sources) Angiotensin Converting Enzyme Inhibitor take 1 tablet by mouth every twenty-four hours Lisinopril 10 MG 1 tablet Orally Once a day Not-Taking metFORMIN hydrochloride 1000 mg oral tablet (8 sources) Biguanide take 1 tablet by mouth every twelve hours metFORMIN HCl 1000 MG 1 tablet with a meal Orally twice a day Not-Taking Semaglutide (6 sources) Start: 10-09-19 End: 12-26-19 Semaglutide (Ozempic) 0.25 mg or 0.5 mg [...] venlafaxine 75 mg extended release oral capsule (8 sources) Serotonin and Norepinephrine Reuptake Inhibitor Start: 10-08-19 End: 10-08-19 take 1 capsule by mouth once daily at mealtime Venlafaxine Discontinued 1 CAP PO Daily October 08, 2023 12:00am October 08, 2023 1:14pm Free[employer]Si capsule with food Orally Once a day; Note: Source Status: Taking; Provider: Christopher Garcia Start: 01-14-2023 take 1 capsule by [facility] every twenty-four hours Venlafaxine HCl ER 75 MG 1 capsule with food Orally Once a day for 30 days Dec, Active Problems Active Problems Problem Classification Problem Date Documented Da te Episodic/Chronic Acute bronchitis (10 sources) Acute bronchitis with bronchospasm; Translations: [Acute bronchitis, unspecified] Episodic Asthma (13 sources) Unspecified asthma, uncomplicated; Translations: [Exacerbation of asthma] Onset: 11-03-2014 Chronic Diabetes mellitus with complications (20 sources) Type 2 diabetes mellitus; Translations: [Type [...] 09-13-2022 Episodic Other aftercare (1 source) 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; Translations: [OTH CRESTER CURRENT DRUG THERAPY] Onset: 09-17-2022 Episodic Other [...] mass index 32.0-32.9, adult] Onset: 10-01-2016 Chronic Other upper respiratory infections (3 sources) Acute maxillary sinusitis; Translations: [Acute recurrent maxillary sinusitis] Onset: 12-11-2016 01-04-2024 Episodic Spondylosis; intervertebral disc disorders; other back problems (11 sources) Muscle spasm of thoracic back; Translations: [Muscle spasm of back] Onset: 05-12-2015 Episodic Sprains and strains (1 source) Strain of back muscle; Translations: [Sprain of unspecified parts of thorax, initial encounter] Episodic Superficial injury; contusion (2 sources) Contusion of hand; Translations: [Contusion of unspecified hand, initial encounter] 12-31-2023 Episodic Unclassified (2 sources) COUGH, UNSPECIFIED; Translations: [...] source) Epistaxis; Translations: [EPISTAXIS] Onset: 09-20-2021 Episodic Skin and subcutaneous tissue infections (1 [...] Basophils (Bld) [#/Vol] 0.1 10 3/uL 0.0-0.1 [facility] Basophils/100 WBC Auto (Bld) on 10-08-2023 Basophils/100 WBC (Bld) 1.3 % 0.2-2.0 [facility] Cholesterol in LDL Calc [Mas s/Vol]on 10-08-2023 Cholesterol in LDL [Mass/Vol] 44.0 mg/dL [facility] Comment on above: <100 mg/dl [id number] 0-129 mg/dl NEAR OR ABOVE [id number] mg/dl BORDERLINE [id number] mg/dl HIGH>190 mg/dl VERY HIGH Cholesterol in VLDL Calc [Ma ss/Vol]on 10-08-2023 Cholesterol in VLDL [Mass/Vol] 75.4 mg/dL [facility] Eosinophils/100 WBC Auto (Bl d)on 10-08-2023 Eosinophils/100 WBC (Bld) 2.7 % 0.9-7.0 [facility] Erythrocyte distribution wid th Auto (RBC) [Ratio]on 10-08-2023 Erythrocyte distribution width (RBC) [Ratio] 12.0 % 11.0-15.0 [facility] Estimated glomerular filtrat ion rate (GFR) non- Americanon 10-08-2023 GFR/1.73 sq M.predicted among non-blacks MDRD (S/P/Bld) [Vol rate/Area] mL/min/{1.73_m2} >=60 [facility] Globulin Calc (S) [Mass/Vol] on 10-08-2023 Globulin (S) [Mass/Vol] 3.5 g/dL [facility] Glucose mean value [Mass/vol ume] in Blood Estimated from glycated hemoglobinon 10-08-2023 Average glucose Estimated from glycated hemoglobin (Bld) [Mass/Vol] 255 mg/dL [facility] Hematocrit Auto (Bld) [Volum e fraction]on 10-08-2023 Hematocrit (Bld) [Volume fraction] 48.4 % 42.0-54.0 [facility] Hemoglobin [Mass/volume] in Bloodon 10-08-2023 Hemoglobin (Bld) [Mass/Vol] 16.2 g/dL 14.0-18.0 [facility] Laboratory - Chemistry and C hemistry - challengeon 10-08-2023 Albumin [Mass/Vol] 3.7 g/dL 3.4-5.[address] [facility] ALP [Catalytic activity/Vol] 136 U/L 46-116 [facility] ALT [Catalytic activity/Vol] 83 U/L 16-63 [facility] AST [Catalytic activity/Vol] 21 U/L 15-37 [facility] Bilirubin [Mass/Vol] 0.5 mg/dL 0.2-1.0 [facility] Calcium [Mass/Vol] 8.8 mg/dL 8.5-10.[address] [facility] Chloride [Moles/Vol] 104 mmol/L 98-107 [facility] Cholesterol [Mass/Vol] 148 mg/dL <=200 [facility] Cholesterol in HDL [Mass/Vol] 29 mg/dL 40-60 [facility] Comment on above: > or =60 mg/dl - LOW CARDIOVASCULAR RISK<40 mg/dl - HIGH CARDIOVASCULAR RISK CO2 [Moles/Vol] 28.1 mmol/L 21.0-32.0 [facility] Creatinine [Mass/Vol] 0.67 mg/dL 0.70-1.30 [facility] GFR/1.73 sq M.predicted MDRD (S/P/Bld) [Vol rate/Area] mL/min/{1.73_m2} >=60 [facility] Glucose [Mass/Vol] 283 mg/dL 74-[address] [facility] Potassium [Moles/Vol] 3.9 mmol/L 3.5-5.1 [facility] Protein [Mass/Vol] 7.2 g/dL 6.4-8.[address] [facility] Sodium [Moles/Vol] 140 mmol/L 136-[address] [facility] Triglyceride [Mass/Vol] 377 mg/dL <=150 [facility] TSH Qn 2.456 m[IU]/L 0.358-3.740 [facility] Urea nitrogen [Mass/Vol] 8.0 mg/dL 7.0-18.0 [facility] Urea nitrogen/Creatinine [Mass ratio] 11.9 mg/mg [facility] Laboratory - Hematology and Cell countson 10-08-2023 HbA1c (Bld) [Mass fraction] 10.5 % 4.5-6.2 [facility] Comment on above: ADA RECOMMENDED LIMI T 4.0 - 6.0ADA THERAPEUTIC TARGET < 7.0ACTION SUGGESTED> 7.0 Immature granulocytes/100 WBC (Bld) 1.7 % 0.0-0.5 [facility] Leukocytes [#/volume] correc desean for nucleated erythrocytes in Blood by Automated counon 10-08-2023 WBC corrected for nucl RBC Auto (Bld) [#/Vol] 7.7 10 3/uL 4.0-11.0 [facility] Lymphocytes Auto (Bld) [#/Vo l]on 10-08-2023 Lymphocytes (Bld) [#/Vol] 2.3 10 3/uL 1.2-3.8 [facility] Lymphocytes/100 WBC Auto (Bl d)on 10-08-2023 Lymphocytes/100 WBC (Bld) 29.4 % 20.5-60.0 [facility] MCH Auto (RBC) [Entitic mass ]on 10-08-2023 MCH (RBC) [Entitic mass] 28.7 pg 25.9-34.0 [facility] MCHC Auto (RBC) [Mass/Vol]on 10-08-2023 MCHC (RBC) [Mass/Vol] 33.5 g/dL 29.9-35.2 [facility] MCV Auto (RBC) [Entitic vol] on 10-08-2023 MCV (RBC) [Entitic vol] 85.8 fL 80.0-94.0 [facility] Monocytes Auto (Bld) [#/Vol] on 10-08-2023 Monocytes (Bld) [#/Vol] 0.6 10 3/uL 0.3-0.8 [facility] Monocytes/100 WBC Auto (Bld) on 10-08-2023 Monocytes/100 WBC (Bld) 8.1 % 1.7-12.0 [facility] Neutrophils Auto (Bld) [#/Vo l]on 10-08-2023 Neutrophils (Bld) [#/Vol] 4.4 10 3/uL 1.4-6.5 [facility] Neutrophils/100 WBC Auto (Bl d)on 10-08-2023 Neutrophils/100 WBC (Bld) 56.8 % 43.0-75.0 [facility] No Panel Informationon 10-07 Eosinophils # (Auto) 0.2 10 3/uL 0.0-0.7 [facility] Immature Granulocyte # (Auto) 0.13 10 3/uL 0.00-0.03 [facility] Platelet mean volume Auto (B ld) [Entitic vol]on 10-08-2023 Platelet mean volume (Bld) [Entitic vol] 12.3 fL 9.5-13.5 [facility] Platelets Auto (Bld) [#/Vol] on 10-08-2023 Platelets (Bld) [#/Vol] 146 10 3/uL 150-450 [facility] RBC Auto (Bld) [#/Vol]on RBC (Bld) [#/Vol] 5.64 10 6/uL 4.70-6.10 [facility] Serum or plasma albumin/glob ulin mass ratioon 10-08-2023 Albumin/Globulin [Mass ratio] 1.1 {ratio} [facility] Serum or plasma anion gap de terminationon 10-08-2023 Anion gap [Moles/Vol] 11.8 mmol/L [facility] Serum or plasma total choles terol/high density lipoprotein (HDL) cholesterol mass amy 10-08-2023 Cholesterol.total/C holesterol in HDL [Mass ratio] 5.1 {ratio} [facility] Comment on above: 3.3 - 4.4 LOW RISK4. 4 - 7.1 AVERAGE RISK7.1 - 11.0 MODERATE RISK>11.0 HIGH RISK BNPon 09-13-2022 Natriuretic peptide B (Bld) [Mass/Vol] 16.0 pg/mL Normal <=450.0 [facility] Comment on above: Performed By: #### B FINISHER DENTURE, CMP, CMADM #### [facility] [address] [place] [address] Dr. Estrella Cazares CARDIAC OSCAR ADMITon 023 CK [Catalytic activity/Vol] 64 U/L Normal 39-308 [facility] Comment on above: Performed By: #### B FINISHER DENTURE, CMP, CMADM #### [facility] [address] [place] [address] Dr. Estrella Cazares CK.MB [Mass/Vol] ng/mL Normal <=3.[address] [facility] Comment on above: Performed By: #### B FINISHER DENTURE, CMP, CMADM #### [facility] [address] [place] [address] Dr. Estrella Cazares HSTROP <4.0 Normal 4.0-76.1 [facility] Comment on above: Result Comment: CUT- OFF POINTS HAVE BEEN ESTABLISHED BASED ON THE FOURTH UNIVERSAL DEFINITIONS OF MYOCARDIAL INFARCTION. THE UPPER REFERENCE LIMIT (URL) OF TROPONIN, DEFINED THE 99TH PERCENTILE OF cTnI DISTRIBUTION IN A REFERENCE POPULATION, HAS BEEN CONFIRMED THE DECISION THRESHOLD FOR CT DIAGNOSIS. Performed By: #### B FINISHER DENTURE, CMP, CMADM #### [facility] [address] [place] [address] Dr. Estrella Cazares DAVID 27 ng/mL Normal 16-96 [facility] Comment on above: Performed By: #### B FINISHER DENTURE, CMP, CMADM #### [facility] [address] [place] [address] Dr. Estrella Cazares CBC AUTO DIFFon 09-13-2022 BASO # 0.1 103/ul Normal 0.0-0.1 [facility] Comment on above: Performed By: #### P T, PTT #### [facility] [address] [place] [address] Dr. Estrella Cazares Basophils/100 WBC (Bld) 0.6 % Normal 0.2-2.0 [facility] Comment on above: Performed By: #### P T, PTT #### [facility] [address] [place], [place] [id number] Dr. Estrella Cazares EO # 0.1 103/ul Normal 0.0-0.7 [facility] Comment on above: Performed By: #### P T, PTT #### [facility] [address] [place] [address] Dr. Estrella Cazares Eosinophils/100 WBC (Bld) 1.6 % Normal 0.9-7.0 [facility] Comment on above: Performed By: #### P T, PTT #### [facility] [address] [place] [address] Dr. Estrella Cazares Erythrocyte distribution width (RBC) [Ratio] 12.0 % Normal 11.0-15.0 [facility] Comment on above: Performed By: #### P T, PTT #### [facility] [address] [place] [address] Dr. Estrella Cazares Hematocrit (Bld) [Volume fraction] 49.8 % Normal 42.0-54.0 [facility] Comment on above: Performed By: #### P T, PTT #### [facility] [address] [place] [address] Dr. Estrella Cazares Hemoglobin (Bld) [Mass/Vol] 16.9 g/dL Normal 14.0-18.0 [facility] Comment on above: Performed By: #### P T, PTT #### [facility] [address] [place] [address] Dr. Estrella Cazares IG # 0.05 10e3/ul Critically high 0.00-0.03 [facility] Comment on above: Performed By: #### P T, PTT #### [facility] [address] [place] [address] Dr. Estrella Cazares IG % 0.6 % Critically high 0.0-0.5 [facility] Comment on above: Performed By: #### P T, PTT #### [facility] [address] [place] [address] Dr. Estrella Cazares LYMPH # 2.0 103/ul Normal 1.2-3.8 [facility] Comment on above: Performed By: #### P T, PTT #### [facility] [address] [place] [address] Dr. Estrella Cazares Lymphocytes/100 WBC (Bld) 22.7 % Normal 20.5-60.0 [facility] Comment on above: Performed By: #### P T, PTT #### [facility] [address] [place] [address] Dr. Estrella Cazares MANUAL DIFF REQ NO Normal [facility] Comment on above: Performed By: #### P T, PTT #### [facility] [address] [place] [address] Dr. Estrella Cazares MCH (RBC) [Entitic mass] 28.2 pg Normal 25.9-34.0 [facility] Comment on above: Performed By: #### P T, PTT #### [facility] [address] [place] [address] Dr. Estrella Cazares MCHC (RBC) [Mass/Vol] 33.9 g/dL Normal 29.9-35.2 [facility] Comment on above: Performed By: #### P T, PTT #### [facility] [address] [place] [address] Dr. Estrella Cazares MCV (RBC) [Entitic vol] 83.1 fL Normal 80.0-94.0 [facility] Comment on above: Performed By: #### P T, PTT #### [facility] [address] [place] [address] Dr. Estrella Cazares MONO # 0.6 103/ul Normal 0.3-0.8 [facility] Comment on above: Performed By: #### P T, PTT #### [facility] [address] [place] [address] Dr. Estrella Cazares Monocytes/100 WBC (Bld) 6.7 % Normal 1.7-12.0 [facility] Comment on above: Performed By: #### P T, PTT #### [facility] [address] [place] [address] Dr. Estrella Cazares NEUT # 5.9 103/ul Normal 1.4-6.5 [facility] Comment on above: Performed By: #### P T, PTT #### [facility] [address] [address] [address] Estrella Cazares Neutrophils/100 WBC (Bld) 67.8 % Normal 43.0-75.0 [facility] Comment on above: Performed By: #### P T, PTT #### [facility] [address] [address] [address] Estrella Cazares Platelet mean volume (Bld) [Entitic vol] 12.1 fL Normal 9.5-13.5 [facility] Comment on above: Performed By: #### P T, PTT #### [facility] [address] [address] [address] Estrella Cazares PLT 190 103/ul Normal 150-450 [facility] Comment on above: Performed By: #### P T, PTT #### [facility] [address] [place] [address] Dr. Estrella Cazares RBC 5.99 106/ul Normal 4.70-6.10 [facility] Comment on above: Performed By: #### P T, PTT #### [facility] [address] [place] [address] Dr. Estrella Cazares WBC 8.7 103/ul Normal 4.0-11.0 [facility] Comment on above: Performed By: #### P T, PTT #### [facility] [address] [place] [address] Dr. Estrella Cazares D-DIMERon 09-13-2022 D-DIMER 0.19 mg/L FEU Normal <=0.59 [facility] Comment on above: Performed By: #### P T, PTT #### [facility] [address] [place] [address] Dr. Estrella Cazares D-DIMER COMMENTS SEE BELOW Normal [facility] Comment on above: Result Comment: Incr eases [...] Performed By: #### P T, PTT #### [facility] [address] [place] [address] Dr. Estrella Cazares GLYCOHEMOGLOBIN A1Con 2022 ADA RECOMMENDATION SEE BELOW Normal [facility] Comment on above: Result Comment: ADA RECOMMENDED LIMIT 4.0 - 6.0 ADA THERAPEUTIC TARGET < 7.0 ACTION SUGGESTED > 7.0 Performed By: #### A 1C #### [facility] [address] [place] [address] Dr. Estrella Cazares Glucose [Mass/Vol] 240 mg/dL Normal [facility] Comment on above: Performed By: #### A 1C #### [facility] [address] [place] [address] Dr. Estrella Cazares HbA1c (Bld) [Mass fraction] 10.0 % Critically high 4.5-6.2 [facility] Comment on above: Performed By: #### A 1C #### [facility] [address] [place] [address] Dr. Estrella Cazares PROF 14(COMP METB)on 023 Albumin [Mass/Vol] 4.0 g/dL Normal 3.4-5.0 [facility] Comment on above: Performed By: #### B FINISHER DENTURE, CMP, CMADM #### [facility] [address] [place] [address] Dr. Estrella Cazares Albumin/Globulin [Mass ratio] 1.4 {ratio} Normal [facility] Comment on above: Performed By: #### B FINISHER DENTURE, CMP, CMADM #### [facility] [address] [place] [address] Dr. Estrella Cazares ALP [Catalytic activity/Vol] 108 U/L Normal 46-116 [facility] Comment on above: Performed By: #### B FINISHER DENTURE, CMP, CMADM #### [facility] [address] [place] [address] Dr. Estrella Cazares ALT [Catalytic activity/Vol] 130 U/L Critically high 16-63 [facility] Comment on above: Performed By: #### B FINISHER DENTURE, CMP, CMADM #### [facility] [address] [address] [address] Estrella Cazares Anion gap [Moles/Vol] 12.6 mmol/L Normal [facility] Comment on above: Performed By: #### B FINISHER DENTURE, CMP, CMADM #### [facility] [address] [address] [address] Estrella Cazares AST [Catalytic activity/Vol] 57 U/L Critically high 15-37 [facility] Comment on above: Performed By: #### B FINISHER DENTURE, CMP, CMADM #### [facility] [address] [address] [address] Estrella Cazares Bilirubin [Mass/Vol] 0.6 mg/dL Normal 0.2-1.0 [facility] Comment on above: Performed By: #### B FINISHER DENTURE, CMP, CMADM #### [facility] [address] [address] [address] Estrella Cazares Calcium [Mass/Vol] 9.2 mg/dL Normal 8.5-10.1 [facility] Comment on above: Performed By: #### B FINISHER DENTURE, CMP, CMADM #### [facility] [address] [address] [address] Estrella Cazares Chloride [Moles/Vol] 103 mmol/L Normal 98-107 [facility] Comment on above: Performed By: #### B FINISHER DENTURE, CMP, CMADM #### [facility] [address] [address] [address] Estrella Cazares CO2 [Moles/Vol] 27.1 mmol/L Normal 21.0-32.[address] [facility] Comment on above: Performed By: #### B FINISHER DENTURE, CMP, CMADM #### [facility] [address] [address] [address] Estrella Cazares Creatinine [Mass/Vol] 0.64 mg/dL Critically low 0.70-1.30 [facility] Comment on above: Performed By: #### B FINISHER DENTURE, CMP, CMADM #### [facility] [address] [address] [address] Estrella Cazares EGFR-AF INDIAN >60 Normal >=[address] [facility] Comment on above: Performed By: #### B FINISHER DENTURE, CMP, CMADM #### [facility] [address] [address] [address] Estrella Cazares EGFR-NON AF INDIAN >60 Normal >=60 [facility] Comment on above: Performed By: #### B FINISHER DENTURE, CMP, CMADM #### [facility] [address] [address] [address] Estrella Cazares Globulin (S) [Mass/Vol] 2.8 g/dL Normal [facility] Comment on above: Performed By: #### B FINISHER DENTURE, CMP, CMADM #### [facility] [address] [address] [address] Estrella Cazares Glucose [Mass/Vol] 236 mg/dL Critically high 74-106 [facility] Comment on above: Performed By: #### B FINISHER DENTURE, CMP, CMADM #### [facility] [address] [address] [address] Estrella Cazares Potassium [Moles/Vol] 3.7 mmol/L Normal 3.5-5.1 [facility] Comment on above: Performed By: #### B FINISHER DENTURE, CMP, CMADM #### [facility] [address] [address] [address] Estrella Cazares Protein [Mass/Vol] 6.8 g/dL Normal 6.4-8.2 [facility] Comment on above: Performed By: #### B FINISHER DENTURE, CMP, CMADM #### [facility] [address] [address] [address] Estrella Cazares Sodium [Moles/Vol] 139 mmol/L Normal 136-145 [facility] Comment on above: Performed By: #### B FINISHER DENTURE, CMP, CMADM #### [facility] [address] [address] [address] Estrella Cazares Urea nitrogen [Mass/Vol] 6.0 mg/dL Critically low 7.0-18.0 [facility] Comment on above: Performed By: #### B FINISHER DENTURE, CMP, CMADM #### [facility] [address] [address] [address] Estrella Cazares Urea nitrogen/Creatinine [Mass ratio] 9.4 mg/mg Normal [facility] Comment on above: Performed By: #### B FINISHER DENTURE, CMP, CMADM #### [facility] [address] [address] [address] Estrella Cazares PROTIMEon 09-13-2022 INR Coag (PPP) [Relative time] 1.01 {INR} Normal [facility] Comment on above: Performed By: #### P T, PTT #### [facility] [address] [place] [address] Dr. Estrella Cazares INR GUIDELINES SEE BELOW Normal [facility] Comment on above: Result Comment: VANDA RED INR: 2.0 - 3.0 CONDITIONS NOT LISTED BELOW 2.5 - 3.5 FOR PROSTHETIC HEART VALVE REPLACEMENT 2.5 - 3.5 RECURRENT THROMBOSIS Performed By: #### P T, PTT #### [facility] [address] [place] [address] Dr. Estrella Cazares PT Coag (PPP) [Time] 10.7 s Normal 9.0-11.6 [facility] Comment on above: Performed By: #### P T, PTT #### [facility] [address] [place] [address] Dr. Estrella Cazares PTTon 09-13-2022 aPTT Coag (Bld) [Time] 29.3 s Normal 22.3-36.2 [facility] Comment on above: Performed By: #### P T, PTT #### [facility] [address] [place] [address] Dr. Estrella Cazares TROPONIN, HIGH SENSITIVITYon 09-13-2022 HSTROP <4.0 Normal 4.0-76.1 [facility] Comment on above: Result Comment: CUT- OFF POINTS HAVE BEEN ESTABLISHED BASED ON THE FOURTH UNIVERSAL DEFINITIONS OF MYOCARDIAL INFARCTION. THE UPPER REFERENCE LIMIT (URL) OF TROPONIN, DEFINED THE 99TH PERCENTILE OF cTnI DISTRIBUTION IN A REFERENCE POPULATION, HAS BEEN CONFIRMED THE DECISION THRESHOLD FOR CT DIAGNOSIS. Performed By: #### P T, PTT #### [facility] [address] [place], [place] [address] Dr. Estrella Cazares XR CHEST 1 Von [...] WARREN PUENTE Date: 2022-09-13 17:19 Normal [facility] Covid-19 PCR (CVDTBH)on 04-28 SARS-CoV-2 (COVID-19) RNA ANIVAL+probe Ql (Unsp spec) Detected Critically abnormal NOT DETECTED [facility] Comment on above: Result Comment: This test is not yet approved or cleared by the [place] FDA. When there are no FDA-approved or cleared tests available, and other criteria are met, FDA can make tests available under an emergency access mechanism called an Emergency Use Authorization (EUA). The EUA for this test is supported by the Superintendent Mechanical of Health and Human Service's declaration that [...] longer be used). Performed By: #### C VDTB #### [facility] [address] [place], [place] [address] Dr. Estrella Cazares XR CHEST 1 Von 05-12-2022 XR CHEST 1 V EXAM: XR CHEST 1 V HISTORY: COUGH COMPARISON: Chest x-ray 02/21/2021 TECHNIQUE: Single frontal view chest x-ray FINDINGS: No lobar consolidation, large pleural effusions, pneumothorax, or acute bony abnormality. Cardiac size is unremarkable. IMPRESSION: No radiographic evidence for acute chest abnormality. Electronically authenticated by: TEDDY HATCH Date: 2022-05-12 00:32 Normal [facility] CT HEAD WO CONon 09-19-2021 CT [...] NAT THOMPSON Date: 2021-09-18 22:02 Normal [facility] CBC AUTO DIFFon 09-18-2021 BASO # 0.1 103/ul Normal 0.0-0.1 [facility] Comment on above: Performed By: #### P T, PTT #### [facility] [address] [place] [address] Dr. Estrella Cazares Basophils/100 WBC (Bld) 1.1 % Normal 0.2-2.0 [facility] Comment on above: Performed By: #### P T, PTT #### [facility] [address] [place] [address] Dr. Estrella Cazares EO # 0.2 103/ul Normal 0.0-0.7 [facility] Comment on above: Performed By: #### P T, PTT #### [facility] [address] [place] [address] Dr. Estrella Cazares Eosinophils/100 WBC (Bld) 2.1 % Normal 0.9-7.0 [facility] Comment on above: Performed By: #### P T, PTT #### [facility] [address] [place] [address] Dr. Estrella Cazares Erythrocyte distribution width (RBC) [Ratio] 12.1 % Normal 11.0-15.0 [facility] Comment on above: Performed By: #### P T, PTT #### [facility] [address] [place] [address] Dr. Estrella Cazares Hematocrit (Bld) [Volume fraction] 47.2 % Normal 42.0-54.0 [facility] Comment on above: Performed By: #### P T, PTT #### [facility] [address] [place] [address] Dr. Estrella Cazares Hemoglobin (Bld) [Mass/Vol] 15.6 g/dL Normal 14.0-18.0 [facility] Comment on above: Performed By: #### P T, PTT #### [facility] [address] [place] [address] Dr. Estrella Cazares IG # 0.10 10e3/ul Critically high 0.00-0.03 [facility] Comment on above: Performed By: #### P T, PTT #### [facility] [address] [place] [address] Dr. Estrella Cazares IG % 1.2 % Critically high 0.0-0.5 [facility] Comment on above: Performed By: #### P T, PTT #### [facility] [address] [place] [address] Dr. Estrella Cazares LYMPH # 2.7 103/ul Normal 1.2-3.8 [facility] Comment on above: Performed By: #### P T, PTT #### [facility] [address] [place] [address] Dr. Estrella Cazares Lymphocytes/100 WBC (Bld) 32.0 % Normal 20.5-60.0 [facility] Comment on above: Performed By: #### P T, PTT #### [facility] [address] [place] [address] Dr. Estrella Cazares MANUAL DIFF REQ NO Normal [facility] Comment on above: Performed By: #### P T, PTT #### [facility] [address] [place] [address] Dr. Estrella Cazares MCH (RBC) [Entitic mass] 28.2 pg Normal 25.9-34.0 [facility] Comment on above: Performed By: #### P T, PTT #### [facility] [address] [place] [address] Dr. Estrella Cazares MCHC (RBC) [Mass/Vol] 33.1 g/dL Normal 29.9-35.2 [facility] Comment on above: Performed By: #### P T, PTT #### [facility] [address] [place] [address] Dr. Estrella Cazares MCV (RBC) [Entitic vol] 85.2 fL Normal 80.0-94.0 [facility] Comment on above: Performed By: #### P T, PTT #### [facility] [address] [place] [address] Dr. Estrella Cazares MONO # 0.6 103/ul Normal 0.3-0.8 [facility] Comment on above: Performed By: #### P T, PTT #### [facility] [address] [place] [address] Dr. Estrella Cazares Monocytes/100 WBC (Bld) 6.6 % Normal 1.7-12.0 [facility] Comment on above: Performed By: #### P T, PTT #### [facility] [address] [place] [address] Dr. Estrella Cazares NEUT # 4.8 103/ul Normal 1.4-6.5 [facility] Comment on above: Performed By: #### P T, PTT #### [facility] [address] [place] [address] Dr. Estrella Cazares Neutrophils/100 WBC (Bld) 57.0 % Normal 43.0-75.0 [facility] Comment on above: Performed By: #### P T, PTT #### [facility] [address] [place] [address] Dr. Estrella Cazares Platelet mean volume (Bld) [Entitic vol] 12.3 fL Normal 9.5-13.5 [facility] Comment on above: Performed By: #### P T, PTT #### [facility] [address] [address] [address] Estrella Cazares PLT 144 103/ul Critically low 150-450 [facility] Comment on above: Performed By: #### P T, PTT #### [facility] [address] [address] [address] Estrella Cazares RBC 5.54 106/ul Normal 4.70-6.10 [facility] Comment on above: Performed By: #### P T, PTT #### [facility] [address] [place] [address] Dr. Estrella Cazares WBC 8.4 103/ul Normal 4.0-11.0 [facility] Comment on above: Performed By: #### P T, PTT #### [facility] [address] [place] [address] Dr. Estrella Cazares PROF 14(COMP METB)on 022 Albumin [Mass/Vol] 3.9 g/dL Normal 3.5-5.0 [facility] Comment on above: Performed By: #### C MP #### [facility] [address] [place] [address] Dr. Estrella Cazares Albumin/Globulin [Mass ratio] 1.3 {ratio} Normal [facility] Comment on above: Performed By: #### C MP #### [facility] [address] [place] [address] Dr. Estrella Cazares ALP [Catalytic activity/Vol] 139 U/L Critically high 38-126 [facility] Comment on above: Performed By: #### C MP #### [facility] [address] [place] [address] Dr. Estrella Cazares ALT [Catalytic activity/Vol] 122 U/L Critically high 21-72 [facility] Comment on above: Performed By: #### C MP #### [facility] [address] [place] [address] Dr. Estrella Cazares Anion gap [Moles/Vol] 10.6 mmol/L Normal [facility] Comment on above: Performed By: #### C MP #### [facility] [address] [address] [address] Estrella Cazares AST [Catalytic activity/Vol] 40 U/L Normal 17-59 [facility] Comment on above: Performed By: #### C MP #### [facility] [address] [address] [address] Estrella Cazares Bilirubin [Mass/Vol] 0.5 mg/dL Normal 0.2-1.3 [facility] Comment on above: Performed By: #### C MP #### [facility] [address] [address] [address] Estrella Cazares Calcium [Mass/Vol] 8.8 mg/dL Normal 8.4-10.2 [facility] Comment on above: Performed By: #### C MP #### [facility] [address] [place] [address] Dr. Estrella Cazares Chloride [Moles/Vol] 103 mmol/L Normal 98-107 [facility] Comment on above: Performed By: #### C MP #### [facility] [address] [place] [address] Dr. Etsrella Cazares CO2 [Moles/Vol] 27.1 mmol/L Normal 22.0-30.[address] [facility] Comment on above: Performed By: #### C MP #### [facility] [address] [place] [address] Dr. Estrella Cazares Creatinine [Mass/Vol] 0.90 mg/dL Normal 0.66-1.25 [facility] Comment on above: Performed By: #### C MP #### [facility] [address] [place] [address] Dr. Estrella Cazares EGFR-AF INDIAN >60 Normal >=[address] [facility] Comment on above: Performed By: #### C MP #### [facility] [address] [place] [address] Dr. Estrella Cazares EGFR-NON AF INDIAN >60 Normal >=60 [facility] Comment on above: Performed By: #### C MP #### [facility] [address] [place] [address] Dr. Estrella Cazares Globulin (S) [Mass/Vol] 3.1 g/dL Normal [facility] Comment on above: Performed By: #### C MP #### [facility] [address] [address] [address] Estrella Cazares Glucose [Mass/Vol] 308 mg/dL Critically high 74-106 [facility] Comment on above: Performed By: #### C MP #### [facility] [address] [address] [address] Estrella Cazares Potassium [Moles/Vol] 3.7 mmol/L Normal 3.4-5.0 [facility] Comment on above: Performed By: #### C MP #### [facility] [address] [address] [address] Estrella Cazares Protein [Mass/Vol] 7.0 g/dL Normal 6.1-8.2 [facility] Comment on above: Performed By: #### C MP #### [facility] [address] [address] [address] Estrella Cazares Sodium [Moles/Vol] 137 mmol/L Normal 137-145 [facility] Comment on above: Performed By: #### C MP #### [facility] [address] [address] [address] Estrella Cazares Urea nitrogen [Mass/Vol] 11.0 mg/dL Normal 9.0-20.0 [facility] Comment on above: Performed By: #### C MP #### [facility] [address] [address] [address] Estrella Cazares Urea nitrogen/Creatinine [Mass ratio] 12.2 mg/mg [facility] Comment on above: Performed By: #### C MP #### [facility] [address] [address] [address] Estrella Cazares PROTIMEon 09-18-2021 INR Coag (PPP) [Relative time] 1.02 {INR} [facility] Comment on above: Performed By: #### P T, PTT #### [facility] [address] [address] [address] Estrella Cazares INR GUIDELINES SEE BELOW Normal [facility] Comment on above: Result Comment: VANDA RED INR: 2.0 - 3.0 CONDITIONS NOT LISTED BELOW 2.5 - 3.5 FOR PROSTHETIC HEART VALVE REPLACEMENT 2.5 - 3.5 RECURRENT THROMBOSIS Performed By: #### P T, PTT #### [facility] [address] [place] [address] Dr. Estrella Cazares PT Coag (PPP) [Time] 11.0 s Normal 9.0-11.6 [facility] Comment on above: Performed By: #### P T, PTT #### [facility] [address] [place] [address] Dr. Estrella Cazares PTTon 09-18-2021 aPTT Coag (Bld) [Time] 28.1 s Normal 22.3-36.2 [facility] Comment on above: Performed By: #### P T, PTT #### [facility] [address] [place] [address] Dr. Estrella Cazares Bas Metab 2000 Pnl SerPlon 0 11-07-2020 Anion gap [Moles/Vol] 11 mmol/L Normal 9-18 [facility] Comment on above: Order Comment: Speci men Type: BLOOD SPECIMEN Performed By: #### 2 4321-2 ####[facility] [id number] [place] [address] Calcium [Mass/Vol] 9.2 mg/dL Normal 8.5-10.2 [facility] Comment on above: Order Comment: Speci men Type: BLOOD SPECIMEN Performed By: #### 2 4321-2 ####[facility] [id number] [place] [address] Chloride [Moles/Vol] 99 mmol/L Normal 97-105 [facility] Comment on above: Order Comment: Speci men Type: BLOOD SPECIMEN Performed By: #### 2 4321-2 ####[facility]ORY[facility] [id number] [place] [address] CO2 [Moles/Vol] 24 mmol/L Normal 22-30 [facility] Comment on above: Order Comment: Speci men Type: BLOOD SPECIMEN Performed By: #### 2 4321-2 ####[facility]ORYCLIA [id number] [place] [address] Creatinine [Mass/Vol] 0.74 mg/dL Normal 0.73-1.22 [facility] Comment on above: Order Comment: Speci men Type: BLOOD SPECIMEN Performed By: #### 2 4321-2 ####[facility]ORY[facility] [id number] [place] [address] GFR/1.73 sq M.predicted MDRD (S/P/Bld) [Vol rate/Area] mL/min/{1.73_m2} Normal [facility] Comment on above: Order Comment: [...] actual GFR. Performed By: #### 2 4321-2 ####[facility]ORYCLIA [id number] [place] [address] Glucose [Mass/Vol] 290 mg/dL High 74-99 [facility] Comment on above: Order Comment: Speci men Type: BLOOD SPECIMEN Result Comment: The [place] [employer] (ADA) provides guidance for cutoff [...] Standards of Medical Care in Diabetes 2016, [place] [employer]. Diabetes Care. 2016.39(Suppl 1). Performed By: #### 2 4321-2 ####[facility]ORYCLIA [id number] [place] [address] Potassium [Moles/Vol] 4.0 mmol/L Normal 3.7-5.1 [facility] Comment on above: Order Comment: Speci men Type: BLOOD SPECIMEN Performed By: #### 2 4321-2 ####[facility]ORYCLIA [id number] [place] [address] Sodium [Moles/Vol] 134 mmol/L Low 136-144 [facility] Comment on above: Order Comment: Speci men Type: BLOOD SPECIMEN Performed By: #### 2 4321-2 ####[facility] [id number] [place] [address] Urea nitrogen [Mass/Vol] 19 mg/dL Normal 9-24 [facility] Comment on above: Order Comment: Speci men Type: BLOOD SPECIMEN Performed By: #### 2 4321-2 ####[facility]ORYCLIA [id number] [place] [address] CASE MANAGEMon 11-07-2020 CASE MANAGEM HNO ID: [id number] Author: Mena (Rn) SARANYA Palmer Service: Care Management Author Type: Registered Nurse Type: Care Mgt Progress Note Filed: 11/07/2020 3:09 PM Note Text: CARE MANAGEMENT DISCHARGE NOTE SERVICE DATE: 11/07/2020 SERVICE TIME: 3:06 PM LOS: 7 days Admission Date: 10/31/2020 DISCHARGE ARRANGEMENT (list agency and phone number) Discharge Arrangement: Home Provider Name: Christine Christopher CAREGIVER ASSESSMENT: Caregiver is ready, willing and [...] 07, 2020 TIME: 3:06 PM PAGER/CONTACT #: [phone] Normal [facility] CBC Pnl Bld Autoon 1 Erythrocyte distribution width (RBC) [Ratio] 13.5 % Normal 11.5-15.0 [facility] Comment on above: Order Comment: Speci men Type: BLOOD SPECIMEN Performed By: #### 5 8410-2 ####[facility]ORYCLIA [id number] [place] [address] Hematocrit (Bld) [Volume fraction] 52.3 % High 39.0-51.0 [facility] Comment on above: Order Comment: Speci men Type: BLOOD SPECIMEN Performed By: #### 5 8410-2 ####[facility]ORYCLIA [id number] [place] [address] Hemoglobin (Bld) [Mass/Vol] 17.0 g/dL Normal 13.0-17.0 [facility] Comment on above: Order Comment: Speci men Type: BLOOD SPECIMEN Performed By: #### 5 8410-2 ####[facility]ORYCLIA [id number] [place] [address] MCH (RBC) [Entitic mass] 27.9 pg Normal 26.0-34.0 [facility] Comment on above: Order Comment: Speci men Type: BLOOD SPECIMEN Performed By: #### 5 8410-2 ####[facility]ORYCLIA [id number] [place] [address] MCHC (RBC) [Mass/Vol] 32.5 g/dL Normal 30.5-36.0 [facility] Comment on above: Order Comment: Speci men Type: BLOOD SPECIMEN Performed By: #### 5 8410-2 ####[facility]ORYCLIA [id number] [place] [address] MCV (RBC) [Entitic vol] 85.9 fL Normal 80.0-100.0 [facility] Comment on above: Order Comment: Speci men Type: BLOOD SPECIMEN Performed By: #### 5 8410-2 ####[facility]ORYCLIA [id number] [place] [address] Nucleated RBC (Bld) [#/Vol] 10*3/uL Normal <0.01 [facility] Comment on above: Order Comment: Speci men Type: BLOOD SPECIMEN Performed By: #### 5 8410-2 ####[facility]ORYCLIA [id number] [place] [address] Platelet mean volume (Bld) [Entitic vol] 12.2 fL Normal 9.0-12.7 [facility] Comment on above: Order Comment: Speci men Type: BLOOD SPECIMEN Performed By: #### 5 8410-2 ####[facility]ORYCLIA [id number] [place] [address] Platelets (Bld) [#/Vol] 226 10*3/uL Normal 150-400 [facility] Comment on above: Order Comment: Speci men Type: BLOOD SPECIMEN Performed By: #### 5 8410-2 ####[facility]ORYCLIA [id number] [place] [address] RBC (Bld) [#/Vol] 6.09 10*6/uL High 4.20-6.00 [facility] Comment on above: Order Comment: Speci men Type: BLOOD SPECIMEN Performed By: #### 5 8410-2 ####[facility]ORYCLIA [id number] [place] [address] WBC (Bld) [#/Vol] 13.90 10*3/uL High 3.70-11.00 [facility] Comment on above: Order Comment: Speci men Type: BLOOD SPECIMEN Performed By: #### 5 8410-2 ####[facility]ATORYCLIA [id number] [place] [address] NURSING PROGon 11-07-2020 NURSING PROG HNO ID: [id number] Author: Kellie AvilaRn) SARANYA Brady Service: Nursing Author Type: Registered Nurse Type: Nursing Progress Note Filed: 11/07/2020 3:59 PM Note Text: Pt ambulated in room on room air. Pulse oxygenation remained above 93% on room air. notified Normal [facility] PROGRESSon 11-07-2020 PROGRESS HNO ID: [id number] Author: Gadiel Douglas MD Service: General Internal Medicine Author Type: Physician Type: Progress Notes Filed: 11/07/2020 10:33 AM Note Text: DEPARTMENT OF HOSPITAL MEDICINE PROGRESS NOTE SERVICE DATE: 11/07/2020 SERVICE TIME: 9:14 AM Hospital Medicine/Primary Attending: Gadiel Douglas MD NIGHT AND WEEKEND COVERAGE: After 7pm please page [phone] SUBJECTIVE: Pt seen and examined. He reports [...] -- 11/01/20 1500 activity - mobilize patient (ia,de) 10/31/20 1845 vte pharmacologic prophylaxis contraindicated (fl,oh) 10/31/201844 graduated compression stockings (ia,oh) Lines, Drains, and Airways Line Peripheral 11/05/20 Assessment Left Forearm 20 Gauge 2 days VTE Prophylaxis: Lovenox 40mg Sub Q Daily Disposition: Home Plan of care discussed with: Patient SIGNATURE: Gadiel Douglas MD PATIENT NAME: Charo Shukla DATE: November 07, 2020 TIME: 9:14 AM PAGER/CONTACT #: Team color pager Disclaimer: Portions of this note may have been generated using [employer] voice recognition software. Reasonable efforts were made to correct any dictation errors that resulted due to the programming of this software but some may still be present. Please note, the time of this note does not reflect the time I saw this patient today, but the time of this documentation. Normal [facility] NURSING PROGon 11-06-2020 NURSING PROG HNO ID: [id number] Author: Nahid (Rn) SARANYA Baires Service: Nursing Author Type: Registered Nurse Type: Nursing Progress Note Filed: 11/06/2020 9:46 PM Note Text: Spoke with pts dad via phone and he is asking that the attending physician call him for an updating in the morning. Will pass along to day shift RN. Normal [facility] NURSING PROG HNO ID: [id number] Author: Nicole AvilaRn) SARANYA De Leon Service: Nursing Author Type: Registered Nurse Type: Nursing Progress Note Filed: 11/06/2020 2:59 PM Note Text: Nursing Progress Note Patient Name: Charo Shukla Patient Location: [id number]/[facility] Attempted blood draw x2- unable to obtain D-dimer and ferritin. Normal [facility] PROGRESSon 11-06-2020 PROGRESS HNO ID: [id number] Author: Gadiel Douglas MD Service: General Internal Medicine Author Type: Physician Type: Progress Notes Filed: 11/06/2020 11:39 AM Note Text: DEPARTMENT OF HOSPITAL MEDICINE PROGRESS NOTE SERVICE DATE: 11/06/2020 SERVICE TIME: 11:34 AM Hospital Medicine/Primary Attending: Gadiel Douglas MD NIGHT AND WEEKEND COVERAGE: After 7pm please page [phone] SUBJECTIVE: Pt seen and examined. Has been [...] -- 11/01/20 1500 activity - mobilize patient (ia,de) 10/31/20 1845 vte pharmacologic prophylaxis contraindicated ([place]) 10/31/20 1845 graduated compression stockings (ia,de) Lines, Drains, and Airways Line Peripheral 11/05/20 Assessment Left Forearm 20 Gauge 1 day VTE Prophylaxis: Lovenox Disposition: Home Plan of care discussed with: Patient SIGNATURE: Gadiel Douglas MD PATIENT NAME: Charo Shukla DATE: November 06, 2020 TIME: 11:34 AM PAGER/CONTACT #: Team color pager Disclaimer: Portions of this note may have been generated using [employer] voice recognition software. Reasonable efforts were made to correct any dictation errors that resulted due to the programming of this software but some may still be present. Please note, the time of this note does not reflect the time I saw this patient today, but the time of this documentation. Normal [facility] CRP SerPl-mCncon 11-05-2020 CRP [Mass/Vol] 0.7 mg/dL Normal <0.9 [facility] Comment on above: Order Comment: Speci men Type: BLOOD SPECIMEN Performed By: #### 5 7021-8 #### [facility] CLIA [id number] [address] [place] [address] D dimer FEU PPP-mCncon 11-05 Fibrin D-dimer FEU (PPP) [Mass/Vol] 280 ng/mL FEU Normal <500 [facility] Comment on above: Order Comment: Speci men Type: BLOOD SPECIMEN Performed By: #### 4 8065-7 ####[facility] [id number] [place] [address] FERRITIN BLDon 11-05-2020 Ferritin [Mass/Vol] 648.9 ng/mL High 30.3-565.7 [facility] Comment on above: Order Comment: Speci men Type: BLOOD SPECIMEN Performed By: #### 5 7021-8 #### [facility] CLIA [id number] [address] [place] [address] HEPATIC FUNCTION PNLon 11-05 Albumin [Mass/Vol] 3.3 g/dL Low 3.9-4.9 [facility] Comment on above: Order Comment: Speci men Type: BLOOD SPECIMEN Performed By: #### 5 7021-8 #### [facility] CLIA [id number] [address] [place] [address] ALP [Catalytic activity/Vol] 83 U/L Normal 38-113 [facility] Comment on above: Order Comment: Speci men Type: BLOOD SPECIMEN Performed By: #### 5 7021-8 #### [facility] CLIA [id number] [address] [place] [address] ALT With P-5'-P [Catalytic activity/Vol] 65 U/L High 10-54 [facility] Comment on above: Order Comment: Speci men Type: BLOOD SPECIMEN Performed By: #### 5 7021-8 #### [facility] CLIA [id number] [address] [place] [address] AST With P-5'-P [Catalytic activity/Vol] 55 U/L High 14-40 [facility] Comment on above: Order Comment: Speci men Type: BLOOD SPECIMEN Performed By: #### 5 7021-8 #### [facility] CLIA [id number] [address] [place] [address] Bilirubin [Mass/Vol] 0.5 mg/dL Normal 0.2-1.3 [facility] Comment on above: Order Comment: Speci men Type: BLOOD SPECIMEN Performed By: #### 5 7021-8 #### [facility] CLIA [id number] [address] [place] [address] Bilirubin.conjugate d [Mass/Vol] mg/dL Normal <0.2 [facility] Comment on above: Order Comment: Speci men Type: BLOOD SPECIMEN Performed By: #### 5 7021-8 #### [facility] CLIA [id number] [address] [place] [address] Protein [Mass/Vol] 5.6 g/dL Low 6.3-8.0 [facility] Comment on above: Order Comment: Speci men Type: BLOOD SPECIMEN Performed By: #### 5 7021-8 #### [facility] CLIA [id number] [address] [place] [id number] PROGRESSon 11-05-2020 PROGRESS HNO ID: [id number] Author: Gadiel Douglas MD Service: General Internal Medicine Author Type: Physician Type: Progress Notes Filed: 11/05/2020 2:36 PM Note Text: DEPARTMENT OF HOSPITAL MEDICINE PROGRESS NOTE SERVICE DATE: 11/05/2020 SERVICE TIME: 2:34 PM Hospital Medicine/Primary Attending: Gadiel Douglas MD NIGHT AND WEEKEND COVERAGE: After 7pm please page [phone] SUBJECTIVE: Pt seen and examined. Remains on [...] -- 11/01/20 1500 activity - mobilize patient (ia,de) 10/31/20 184 vte pharmacologic prophylaxis contraindicated ([place], [place]) 10/31/20 184 graduated compression stockings ([place]) Lines, Drains, and Airways Line Peripheral 11/05/20 Assessment Left Forearm 20 Gauge <1 day VTE Prophylaxis: Lovenox 40mg Sub Q Daily Disposition: Home Plan of care discussed with: Patient SIGNATURE: Gadiel Douglas MD PATIENT NAME: Charo Shukla DATE: November 05, 2020 TIME: 2:34 PM PAGER/CONTACT #: Team color pager Disclaimer: Portions of this note may have been generated using [employer] voice recognition software. Reasonable efforts were made to correct any dictation errors that resulted due to the programming of this software but some may still be present. Please note, the time of this note does not reflect the time I saw this patient today, but the time of this documentation. Normal [facility] CBC Pnl Bld Autoon 1 Erythrocyte distribution width (RBC) [Ratio] 13.0 % Normal 11.5-15.0 [facility] Comment on above: Order Comment: Speci men Type: BLOOD SPECIMEN Performed By: #### 5 7021-8 #### [facility] CLIA [id number] [address] [place] [address] Hematocrit (Bld) [Volume fraction] 42.5 % Normal 39.0-51.0 [facility] Comment on above: Order Comment: Speci men Type: BLOOD SPECIMEN Performed By: #### 5 7021-8 #### [facility] CLIA [id number] [address] [place] [address] Hemoglobin (Bld) [Mass/Vol] 14.1 g/dL Normal 13.0-17.0 [facility] Comment on above: Order Comment: Speci men Type: BLOOD SPECIMEN Performed By: #### 5 7021-8 #### [facility] CLIA [id number] [address] [place] [address] MCH (RBC) [Entitic mass] 27.8 pg Normal 26.0-34.0 [facility] Comment on above: Order Comment: Speci men Type: BLOOD SPECIMEN Performed By: #### 5 7021-8 #### [facility] CLIA [id number] [address] [place] [address] MCHC (RBC) [Mass/Vol] 33.2 g/dL Normal 30.5-36.0 [facility] Comment on above: Order Comment: Speci men Type: BLOOD SPECIMEN Performed By: #### 5 7021-8 #### [facility] CLIA [id number] [address] [place] [address] MCV (RBC) [Entitic vol] 83.7 fL Normal 80.0-100.0 [facility] Comment on above: Order Comment: Speci men Type: BLOOD SPECIMEN Performed By: #### 5 7021-8 #### [facility] CLIA [id number] [address] [place] [address] Nucleated RBC (Bld) [#/Vol] 10*3/uL Normal <0.01 [facility] Comment on above: Order Comment: Speci men Type: BLOOD SPECIMEN Performed By: #### 5 7021-8 #### [facility] CLIA [id number] [address] [place] [address] Platelet mean volume (Bld) [Entitic vol] 11.9 fL Normal 9.0-12.7 [facility] Comment on above: Order Comment: Speci men Type: BLOOD SPECIMEN Performed By: #### 5 7021-8 #### [facility] CLIA [id number] [address] [place] [address] Platelets (Bld) [#/Vol] 205 10*3/uL Normal 150-400 [facility] Comment on above: Order Comment: Speci men Type: BLOOD SPECIMEN Performed By: #### 5 7021-8 #### [facility] CLIA [id number] [address] [place] [address] RBC (Bld) [#/Vol] 5.08 10*6/uL Normal 4.20-6.00 [facility] Comment on above: Order Comment: Speci men Type: BLOOD SPECIMEN Performed By: #### 5 7021-8 #### [facility] CLIA [id number] [address] [place] [address] WBC (Bld) [#/Vol] 9.37 10*3/uL Normal 3.70-11.00 [facility] Comment on above: Order Comment: Speci men Type: BLOOD SPECIMEN Performed By: #### 5 7021-8 #### [facility] CLIA [id number] [address] [place] [address] Comp Metab 2000 Pnl SerPlon 11-04-2020 Albumin [Mass/Vol] 3.3 g/dL Low 3.9-4.9 [facility] Comment on above: Order Comment: Speci men Type: BLOOD SPECIMEN Performed By: #### 2 4323-8 #### [facility] CLIA [id number] [address] [place] [address] ALP [Catalytic activity/Vol] 76 U/L Normal 38-113 [facility] Comment on above: Order Comment: Speci men Type: BLOOD SPECIMEN Performed By: #### 2 4323-8 #### [facility] CLIA [id number] [address] [place] [address] ALT With P-5'-P [Catalytic activity/Vol] 52 U/L Normal 10-54 [facility] Comment on above: Order Comment: Speci men Type: BLOOD SPECIMEN Performed By: #### 2 4323-8 #### [facility] CLIA [id number] [address] [place] [address] Anion gap [Moles/Vol] 10 mmol/L Normal 9-18 [facility] Comment on above: Order Comment: Speci men Type: BLOOD SPECIMEN Performed By: #### 2 4323-8 #### [facility] CLIA [id number] [address] [place] [address] AST With P-5'-P [Catalytic activity/Vol] 61 U/L High 14-40 [facility] Comment on above: Order Comment: Speci men Type: BLOOD SPECIMEN Performed By: #### 2 4323-8 #### [facility] CLIA [id number] [address] [place] [address] Bilirubin [Mass/Vol] 0.4 mg/dL Normal 0.2-1.3 [facility] Comment on above: Order Comment: Speci men Type: BLOOD SPECIMEN Performed By: #### 2 4323-8 #### [facility] CLIA [id number] [address] [place] [address] Calcium [Mass/Vol] 8.5 mg/dL Normal 8.5-10.2 [facility] Comment on above: Order Comment: Speci men Type: BLOOD SPECIMEN Performed By: #### 2 4323-8 #### [facility] CLIA [id number] [address] [place] [address] Chloride [Moles/Vol] 106 mmol/L High 97-105 [facility] Comment on above: Order Comment: Speci men Type: BLOOD SPECIMEN Performed By: #### 2 4323-8 #### [facility] CLIA [id number] [address] [place] [address] CO2 [Moles/Vol] 22 mmol/L Normal 22-30 [facility] Comment on above: Order Comment: Speci men Type: BLOOD SPECIMEN Performed By: #### 2 4323-8 #### [facility] CLIA [id number] [address] [place] [address] Creatinine [Mass/Vol] 0.64 mg/dL Low 0.73-1.22 [facility] Comment on above: Order Comment: Speci men Type: BLOOD SPECIMEN Performed By: #### 2 4323-8 #### [facility] CLIA [id number] [address] [place] [address] GFR/1.73 sq M.predicted MDRD (S/P/Bld) [Vol rate/Area] mL/min/{1.73_m2} Normal [facility] Comment on above: Order Comment: [...] GFR. Performed By: #### 2 4323-8 #### [facility] CLIA [id number] [address] [place] [address] Glucose [Mass/Vol] 206 mg/dL High 74-99 [facility] Comment on above: Order Comment: Speci men Type: BLOOD SPECIMEN Result Comment: The [place] [employer] Association (ADA) provides guidance for cutoff [...] Standards of Medical Care in Diabetes 2016, [place] [employer]. Diabetes Care. 2016.39(Suppl 1). Performed By: #### 2 4323-8 #### [facility] CLIA [id number] [address] [place] [address] Potassium [Moles/Vol] 4.2 mmol/L Normal 3.7-5.1 [facility] Comment on above: Order Comment: Speci [facility] Type: BLOOD SPECIMEN Performed By: #### 2 4323-8 #### [facility] CLIA [id number] [address] [place] [address] Protein [Mass/Vol] 5.7 g/dL Low 6.3-8.0 [facility] Comment on above: Order Comment: Speci men Type: BLOOD SPECIMEN Performed By: #### 2 4323-8 #### [facility] CLIA [id number] [address] [place] [address] Sodium [Moles/Vol] 138 mmol/L Normal 136-144 [facility] Comment on above: Order Comment: Speci men Type: BLOOD SPECIMEN Performed By: #### 2 4323-8 #### [facility] CLIA [id number] [address] [place] [address] Urea nitrogen [Mass/Vol] 13 mg/dL Normal 9-24 [facility] Comment on above: Order Comment: Speci men Type: BLOOD SPECIMEN Performed By: #### 2 4323-8 #### [facility] CLIA [id number] [address] [place] [address] NURSING PROGon 11-04-2020 NURSING PROG HNO ID: [id number] Author: Brittany (Rn) SARANYA Marte Service: Nursing Author Type: Registered Nurse Type: Nursing Progress Note Filed: 11/04/2020 6:59 PM Note Text: Nursing Progress Note Patient Name: Charo Shukla Patient Location: [place] [address] Daily Note:Attempted to place IV and draw blood x 2 without success. This note was completed by: Brittany aMrte RN [facility] PLAN OF CAREon 11-04-2020 PLAN OF CARE HNO ID: [id number] Author: Warren Melo Service: Infectious Disease Author [...] MD 11/04/2020 5:59 PM pgr [phone] Normal [facility] PROCALCITONIN (LAB)on 2020 Procalcitonin [Mass/Vol] 0.11 ng/mL High <0.09 [facility] Comment on above: Order Comment: Speci men Type: BLOOD SPECIMEN Result Comment: For a guided interpretation of test results, please visit the Change in Procalcitonin Calculator, [email or web address]. Performed By: #### 5 7021-8 #### [facility] CLIA [id number] [address] [place] [address] PROGRESSon 11-04-2020 PROGRESS HNO ID: [id number] Author: Gadiel Douglas MD Service: General Internal Medicine Author Type: Physician Type: Progress Notes Filed: 11/04/2020 2:11 PM Note Text: DEPARTMENT OF HOSPITAL MEDICINE PROGRESS NOTE SERVICE DATE: 11/04/2020 SERVICE TIME: 12:13 PM Hospital Medicine/Primary Attending: Gadiel Douglas MD NIGHT AND WEEKEND COVERAGE: After 7pm please page [phone] CHIEF COMPLAINT: Shortness of breath SUBJECTIVE: Pt [...] MCH 27.8 MPV 11.9 BMP: Recent Labs 11/04/20 0446 NA 138 K 4.2 CHLOR 106* CO2 22 BUN 13 CREAT 0.64* GLUC 206* CMP: Recent Labs 11/04/20 0446 NA 138 K 4.2 CHLOR 106* CO2 22 BUN 13 CREAT 0.64* GLUC 206* TPROT 5.7* CA 8.5 TBILI 0.4 ALKPHOS 76 ALT 52 AST 61* ANION 10 Liver Function, Amylase, Lipase: Recent Labs 11/04/20 0446 TPROT 5.7* ALB 3.3* ALT 52 AST 61* ALKPHOS 76 TBILI 0.4 Renal Panel: Recent Labs 11/04/20 0446 CREAT 0.64* BUN 13 GLUC 206* CA [...] -- 11/01/20 1500 activity - mobilize patient (ia,de) 10/31/20 1845 vte pharmacologic prophylaxis contraindicated (ia,de) 10/31/20 1845 graduated compression stockings ([place], [place]) Lines, Drains, and Airways Line Peripheral 11/02/20 1205 Short Left Forearm 2 days VTE Prophylaxis: Lovenox 40mg Sub Q Daily Disposition: Home Plan of care discussed with: Patient SIGNATURE: Gadiel Douglas MD PATIENT NAME: Charo Shukla DATE: November 04, 2020 TIME: 12:13 PM PAGER/CONTACT #: Alana diaz pager Disclaimer: Portions of this note may have been generated using [employer] voice recognition software. Reasonable efforts were made to correct any dictation errors that resulted due to the programming of this software but some may still be present. Please note, the time of this note does not reflect the time I saw this patient today, but the time of this documentation. Normal [facility] Bilirub Conj SerPl-mCncon Bilirubin.conjugate d [Mass/Vol] mg/dL Normal <0.2 [facility] Comment on above: Order Comment: Speci men Type: BLOOD SPECIMEN Performed By: #### 2 4323-8, 67123-9 #### [facility] CLIA [id number] [address] [place] [address] CBC W Auto Diff Bldon 2020 Basophils (Bld) [#/Vol] 0.05 10*3/uL Normal <0.11 [facility] Comment on above: Order Comment: Speci men Type: BLOOD SPECIMEN Result Comment: Diff erential confirmed by visual scan of peripheral blood smear slide Performed By: #### F GEOVANI, 1987-11 #### [facility] CLIA [id number] [address] [place] [address] Basophils/100 WBC (Bld) 0.6 % Normal [facility] Comment on above: Order Comment: Speci men Type: BLOOD SPECIMEN Performed By: #### F ERR1987-11 #### [facility] CLIA [id number] [address] [place] [address] Differential cell count method Nom (Bld) Auto Normal [facility] Comment on above: Order Comment: Speci men Type: BLOOD SPECIMEN Performed By: #### F ERR, 1987-11 #### [facility] CLIA [id number] [address] [place] [address] Eosinophils (Bld) [#/Vol] 10*3/uL Normal <0.46 [facility] Comment on above: Order Comment: Speci men Type: BLOOD SPECIMEN Performed By: #### F GEOVANI1987-11 #### [facility] CLIA [id number] [address] [place] [address] Eosinophils/100 WBC (Bld) 0.0 % Normal [facility] Comment on above: Order Comment: Speci men Type: BLOOD SPECIMEN Performed By: #### F GEOVANI1987-11 #### [facility] CLIA [id number] [address] [place] [address] Erythrocyte distribution width (RBC) [Ratio] 13.4 % Normal 11.5-15.0 [facility] Comment on above: Order Comment: Speci men Type: BLOOD SPECIMEN Performed By: #### Janet GEOVANI1987-11 #### [facility] CLIA [id number] [address] [place] [address] Hematocrit (Bld) [Volume fraction] 46.9 % Normal 39.0-51.0 [facility] Comment on above: Order Comment: Speci men Type: BLOOD SPECIMEN Performed By: #### Janet GEOVANI1987-11 #### [facility] CLIA [id number] [address] [place] [address] Hemoglobin (Bld) [Mass/Vol] 15.3 g/dL Normal 13.0-17.0 [facility] Comment on above: Order Comment: Speci men Type: BLOOD SPECIMEN Performed By: #### GEOVANI1987-11 #### [facility] CLIA [id number] [address] [place] [address] IMMATURE GRAN % 3.9 % Normal [facility] Comment on above: Order Comment: Speci men Type: BLOOD SPECIMEN Performed By: #### 1987-11 #### [facility] CLIA [id number] [address] [place] [address] IMMATURE GRAN ABS 0.34 k/uL High <0.10 [facility] Comment on above: Order Comment: Speci men Type: BLOOD SPECIMEN Performed By: #### GEOVANI1987-11 #### [facility] CLIA [id number] [address] [place] [address] Lymphocytes (Bld) [#/Vol] 1.55 10*3/uL Normal 1.00-4.00 [facility] Comment on above: Order Comment: Speci men Type: BLOOD SPECIMEN Performed By: #### GEOVANI1987-11 #### [facility] CLIA [id number] [address] [place] [address] Lymphocytes/100 WBC (Bld) 17.8 % Normal [facility] Comment on above: Order Comment: Speci men Type: BLOOD SPECIMEN Performed By: #### GEOVANI1987-11 #### [facility] CLIA [id number] [address] [place] [address] MCH (RBC) [Entitic mass] 28.3 pg Normal 26.0-34.0 [facility] Comment on above: Order Comment: Speci men Type: BLOOD SPECIMEN Performed By: #### GEOVANI1987-11 #### [facility] CLIA [id number] [address] [place] [address] MCHC (RBC) [Mass/Vol] 32.6 g/dL Normal 30.5-36.0 [facility] Comment on above: Order Comment: Speci men Type: BLOOD SPECIMEN Performed By: #### GEOVANI1987-11 #### [facility] CLIA [id number] [address] [place] [address] MCV (RBC) [Entitic vol] 86.9 fL Normal 80.0-100.0 [facility] Comment on above: Order Comment: Speci men Type: BLOOD SPECIMEN Performed By: #### GEOVANI1987-11 #### [facility] CLIA [id number] [address] [place] [address] Monocytes (Bld) [#/Vol] 0.78 10*3/uL Normal <0.87 [facility] Comment on above: Order Comment: Speci men Type: BLOOD SPECIMEN Performed By: #### GEOVANI1987-11 #### [facility] CLIA [id number] [address] [place] [address] Monocytes/100 WBC (Bld) 9.0 % Normal [facility] Comment on above: Order Comment: Speci men Type: BLOOD SPECIMEN Performed By: #### GEOVANI1987-11 #### [facility] CLIA [id number] [address] [place] [address] Neutrophils (Bld) [#/Vol] 5.97 10*3/uL Normal 1.45-7.50 [facility] Comment on above: Order Comment: Speci men Type: BLOOD SPECIMEN Performed By: #### Janet GEOVANI1987-11 #### [facility] CLIA [id number] [address] [place] [address] Neutrophils/100 WBC (Bld) 68.7 % Normal [facility] Comment on above: Order Comment: Speci men Type: BLOOD SPECIMEN Performed By: #### GEOVANI1987-11 #### [facility] CLIA [id number] [address] [place] [address] Nucleated RBC (Bld) [#/Vol] 10*3/uL Normal <0.01 [facility] Comment on above: Order Comment: Speci men Type: BLOOD SPECIMEN Performed By: #### GEOVANI1987-11 #### [facility] CLIA [id number] [address] [place] [address] Nucleated RBC/100 WBC (Bld) [Ratio] 0.0 /100 WBC Normal 0.0 [facility] Comment on above: Order Comment: Speci men Type: BLOOD SPECIMEN Performed By: #### GEOVANI1987-11 #### [facility] CLIA [id number] [address] [place] [address] Platelet mean volume (Bld) [Entitic vol] 11.8 fL Normal 9.0-12.7 [facility] Comment on above: Order Comment: Speci men Type: BLOOD SPECIMEN Performed By: #### GEOVANI1987-11 #### [facility] CLIA [id number] [address] [place] [address] Platelets (Bld) [#/Vol] 200 10*3/uL Normal 150-400 [facility] Comment on above: Order Comment: Speci men Type: BLOOD SPECIMEN Performed By: #### GEOAVNI1987-11 #### [facility] CLIA [id number] [address] [place] [address] RBC (Bld) [#/Vol] 5.40 10*6/uL Normal 4.20-6.00 [facility] Comment on above: Order Comment: Speci men Type: BLOOD SPECIMEN Performed By: #### GEOVANI1987-11 #### [facility] CLIA [id number] [address] [place] [address] WBC (Bld) [#/Vol] 8.69 10*3/uL Normal 3.70-11.00 [facility] Comment on above: Order Comment: Speci men Type: BLOOD SPECIMEN Performed By: #### F ERR, 1987-11 #### [facility] CLIA [id number] [address] [place] [address] Comp Metab 2000 Pnl SerPlon 11-03-2020 Albumin [Mass/Vol] 3.6 g/dL Low 3.9-4.9 [facility] Comment on above: Order Comment: Speci men Type: BLOOD SPECIMEN Performed By: #### 2 4323-8, 14243-9 #### [facility] CLIA [id number] [address] [place] [address] ALP [Catalytic activity/Vol] 75 U/L Normal 38-113 [facility] Comment on above: Order Comment: Speci men Type: BLOOD SPECIMEN Performed By: #### 2 4322-8, 39937-2 #### [facility] CLIA [id number] [address] [place] [address] ALT With P-5'-P [Catalytic activity/Vol] 47 U/L Normal 10-54 [facility] Comment on above: Order Comment: Speci men Type: BLOOD SPECIMEN Performed By: #### 2 4323-8, 63149-9 #### [facility] CLIA [id number] [address] [place] [address] Anion gap [Moles/Vol] 11 mmol/L Normal 9-18 [facility] Comment on above: Order Comment: Speci men Type: BLOOD SPECIMEN Performed By: #### 2 4323-8, 60327-0 #### [facility] CLIA [id number] [address] [place] [address] AST With P-5'-P [Catalytic activity/Vol] 66 U/L High 14-40 [facility] Comment on above: Order Comment: Speci men Type: BLOOD SPECIMEN Performed By: #### 2 4323-8, 90716-3 #### [facility] CLIA [id number] [address] [place] [address] Bilirubin [Mass/Vol] 0.4 mg/dL Normal 0.2-1.3 [facility] Comment on above: Order Comment: Speci men Type: BLOOD SPECIMEN Performed By: #### 2 4323-8, 70186-7 #### [facility] CLIA [id number] [address] [place] [address] Calcium [Mass/Vol] 9.1 mg/dL Normal 8.5-10.2 [facility] Comment on above: Order Comment: Speci men Type: BLOOD SPECIMEN Performed By: #### 2 4323-8, 95218-3 #### [facility] CLIA [id number] [address] [place] [address] Chloride [Moles/Vol] 107 mmol/L High 97-105 [facility] Comment on above: Order Comment: Speci men Type: BLOOD SPECIMEN Performed By: #### 2 432-8, 94863-0 #### [facility] CLIA [id number] [address] [place] [address] CO2 [Moles/Vol] 23 mmol/L Normal 22-30 [facility] Comment on above: Order Comment: Speci men Type: BLOOD SPECIMEN Performed By: #### 2 4323-8, 27073-9 #### [facility] CLIA [id number] [address] [place] [address] Creatinine [Mass/Vol] 0.73 mg/dL Normal 0.73-1.22 [facility] Comment on above: Order Comment: Speci men Type: BLOOD SPECIMEN Performed By: #### 2 4323-8, 89907-6 #### [facility] CLIA [id number] [address] [place] [address] GFR/1.73 sq M.predicted MDRD (S/P/Bld) [Vol rate/Area] mL/min/{1.73_m2} Normal [facility] Comment on above: Order Comment: [...] actual GFR. Performed By: #### 2 4323-8, 62205-2 #### [facility] CLIA [id number] [address] [place] [address] Glucose [Mass/Vol] 161 mg/dL High 74-99 [facility] Comment on above: Order Comment: Speci men Type: BLOOD SPECIMEN Result Comment: The [place] Diabetes Association (ADA) provides guidance for cutoff [...] Standards of Medical Care in Diabetes 2016, [place] [employer]. Diabetes Care. 2016.39(Suppl 1). Performed By: #### 2 4323-8, 90256-1 #### [facility] CLIA [id number] [address] [place] [address] Potassium [Moles/Vol] 4.2 mmol/L Normal 3.7-5.1 [facility] Comment on above: Order Comment: Speci men Type: BLOOD SPECIMEN Performed By: #### 2 4323-8, 07615-1 #### [facility] CLIA [id number] [address] [place] [address] Protein [Mass/Vol] 6.2 g/dL Low 6.3-8.0 [facility] Comment on above: Order Comment: Speci men Type: BLOOD SPECIMEN Performed By: #### 2 4323-8, 04175-7 #### [facility] CLIA [id number] [address] [place] [address] Sodium [Moles/Vol] 141 mmol/L Normal 136-144 [facility] Comment on above: Order Comment: Speci men Type: BLOOD SPECIMEN Performed By: #### 2 4323-8, 43673-4 #### [facility] CLIA [id number] [address] [place] [address] Urea nitrogen [Mass/Vol] 16 mg/dL Normal 9-24 [facility] Comment on above: Order Comment: Speci men Type: BLOOD SPECIMEN Performed By: #### 2 4323-8, 58213-9 #### [facility] CLIA [id number] [address] [place] [address] PROGRESSon 11-03-2020 PROGRESS HNO ID: [id number] Author: Gadiel Douglas MD Service: General Internal Medicine Author Type: Physician Type: Progress Notes Filed: 11/03/2020 11:18 AM Note Text: DEPARTMENT OF HOSPITAL MEDICINE PROGRESS NOTE SERVICE DATE: 11/03/2020 SERVICE TIME: 10:41 AM Hospital Medicine/Primary Attending: Gadiel Douglas MD NIGHT AND WEEKEND COVERAGE: After 7pm please page [phone] SUBJECTIVE: Pt seen and examined. Continues to [...] 11 Liver Function, Amylase, Lipase: Recent Labs 04/08/21 0518 TPROT 6.2* ALB 3.6* ALT 47 AST 66* ALKPHOS 75 TBILI 0.4 Renal Panel: Recent Labs 11/03/20 0518 CREAT 0.73 BUN 16 GLUC 161* CA [...] -- 11/01/20 1500 activity - mobilize patient ([place]) 10/31/20 1845 vte pharmacologic prophylaxis contraindicated (ia,de) 10/31/20 1845 graduated compression stockings ([place], [place]) Lines, Drains, and Airways Line Peripheral 11/02/20 1205 Short Left Forearm <1 day VTE Prophylaxis: Lovenox 40mg Sub Q Daily Disposition: Home Plan of care discussed with: Patient SIGNATURE: Gadiel Douglas MD PATIENT NAME: Charo Shukla DATE: November 03, 2020 TIME: 10:41 AM PAGER/CONTACT #: Team color pager Disclaimer: Portions of this note may have been generated using [employer] voice recognition software. Reasonable efforts were made to correct any dictation errors that resulted due to the programming of this software but some may still be present. Please note, the time of this note does not reflect the time I saw this patient today, but the time of this documentation. Normal [facility] PT Pnl PPPon 11-03-2020 INR Coag (PPP) [Relative time] 1.1 {INR} Normal 0.9-1.3 [facility] Comment on above: Order Comment: Speci men Type: BLOOD SPECIMEN Result Comment: Milagros min K Antagonist (VKA) Therapeutic Range: INR 2 to 3 (Target INR of 2.5) Note: For patients treated with VKA drugs, such as warfarin, the [place] [employer]icians 2012 Guideline recommends [...] Chest 2012, 141:7S-47S Tiara RA, et al. [facility] 2017, 70: 252-289 Performed By: #### F ERR, 1987-11 #### [facility] CLIA [id number] [address] [place] [address] PT Coag (PPP) [Time] 11.6 s Normal 9.7-13.0 [facility] Comment on above: Order Comment: Speci men Type: BLOOD SPECIMEN Performed By: #### F ERR, 1987-11 #### [facility] CLIA [id number] [address] [place] [address] Bilirub Conj SerPl-mCncon Bilirubin.conjugate d [Mass/Vol] mg/dL Normal <0.2 [facility] Comment on above: Order Comment: Speci men Type: BLOOD SPECIMEN Performed By: #### F ERR, 1987-11 #### [facility] CLIA [id number] [address] [place] [address] CBC W Auto Diff [place] 2020 Basophils (Bld) [#/Vol] 10*3/uL Normal <0.11 [facility] Comment on above: Order Comment: Speci men Type: BLOOD SPECIMEN Result Comment: Diff erential confirmed by visual scan of peripheral blood smear slide Performed By: #### F GEOVANI1987-11 #### [facility] CLIA [id number] [address] [place] [address] Basophils/100 WBC (Bld) 0.4 % Normal [facility] Comment on above: Order Comment: Speci men Type: BLOOD SPECIMEN Performed By: #### 1987-11 #### [facility] CLIA [id number] [address] [place] [address] Differential cell count method Nom (Bld) Auto Normal [facility] Comment on above: Order Comment: Speci men Type: BLOOD SPECIMEN Performed By: #### 1987-11 #### [facility] CLIA [id number] [address] [place] [address] Eosinophils (Bld) [#/Vol] 10*3/uL Normal <0.46 [facility] Comment on above: Order Comment: Speci men Type: BLOOD SPECIMEN Performed By: #### 1987-11 #### [facility] CLIA [id number] [address] [place] [address] Eosinophils/100 WBC (Bld) 0.0 % Normal [facility] Comment on above: Order Comment: Speci men Type: BLOOD SPECIMEN Performed By: #### 1987-11 #### [facility] CLIA [id number] [address] [place] [address] Erythrocyte distribution width (RBC) [Ratio] 13.3 % Normal 11.5-15.0 [facility] Comment on above: Order Comment: Speci men Type: BLOOD SPECIMEN Performed By: #### 1987-11 #### [facility] CLIA [id number] [address] [place] [address] Hematocrit (Bld) [Volume fraction] 45.9 % Normal 39.0-51.0 [facility] Comment on above: Order Comment: Speci men Type: BLOOD SPECIMEN Performed By: #### 1987-11 #### [facility] CLIA [id number] [address] [place] [address] Hemoglobin (Bld) [Mass/Vol] 14.8 g/dL Normal 13.0-17.0 [facility] Comment on above: Order Comment: Speci men Type: BLOOD SPECIMEN Performed By: #### GEOVANI1987-11 #### [facility] CLIA [id number] [address] [place] [address] IMMATURE GRAN % 2.7 % Normal [facility] Comment on above: Order Comment: Speci men Type: BLOOD SPECIMEN Performed By: #### GEOVANI1987-11 #### [facility] CLIA [id number] [address] [place] [address] IMMATURE GRAN ABS 0.13 k/uL High <0.10 [facility] Comment on above: Order Comment: Speci men Type: BLOOD SPECIMEN Performed By: #### GEOVANI1987-11 #### [facility] CLIA [id number] [address] [place] [address] Lymphocytes (Bld) [#/Vol] 1.18 10*3/uL Normal 1.00-4.00 [facility] Comment on above: Order Comment: Speci men Type: BLOOD SPECIMEN Performed By: #### GEOVANI1987-11 #### [facility] CLIA [id number] [address] [place] [address] Lymphocytes/100 WBC (Bld) 24.6 % Normal [facility] Comment on above: Order Comment: Speci men Type: BLOOD SPECIMEN Performed By: #### GEOVANI1987-11 #### [facility] CLIA [id number] [address] [place] [address] MCH (RBC) [Entitic mass] 28.0 pg Normal 26.0-34.0 [facility] Comment on above: Order Comment: Speci men Type: BLOOD SPECIMEN Performed By: #### GEOVANI1987-11 #### [facility] CLIA [id number] [address] [place] [address] MCHC (RBC) [Mass/Vol] 32.2 g/dL Normal 30.5-36.0 [facility] Comment on above: Order Comment: Speci men Type: BLOOD SPECIMEN Performed By: #### 1987-11 #### [facility] CLIA [id number] [address] [place] [address] MCV (RBC) [Entitic vol] 86.8 fL Normal 80.0-100.0 [facility] Comment on above: Order Comment: Speci men Type: BLOOD SPECIMEN Performed By: #### 1987-11 #### [facility] CLIA [id number] [address] [place] [address] Monocytes (Bld) [#/Vol] 0.42 10*3/uL Normal <0.87 [facility] Comment on above: Order Comment: Speci men Type: BLOOD SPECIMEN Performed By: #### 1987-11 #### [facility] CLIA [id number] [address] [place] [address] Monocytes/100 WBC (Bld) 8.8 % Normal [facility] Comment on above: Order Comment: Speci men Type: BLOOD SPECIMEN Performed By: #### 1987-11 #### [facility] CLIA [id number] [address] [place] [address] Neutrophils (Bld) [#/Vol] 3.04 10*3/uL Normal 1.45-7.50 [facility] Comment on above: Order Comment: Speci men Type: BLOOD SPECIMEN Performed By: #### 1987-11 #### [facility] CLIA [id number] [address] [place] [address] Neutrophils/100 WBC (Bld) 63.5 % Normal [facility] Comment on above: Order Comment: Speci men Type: BLOOD SPECIMEN Performed By: #### 1987-11 #### [facility] CLIA [id number] [address] [place] [address] Nucleated RBC (Bld) [#/Vol] 10*3/uL Normal <0.01 [facility] Comment on above: Order Comment: Speci men Type: BLOOD SPECIMEN Performed By: #### 1987-11 #### [facility] CLIA [id number] [address] [place] [address] Nucleated RBC/100 WBC (Bld) [Ratio] 0.0 /100 WBC Normal 0.0 [facility] Comment on above: Order Comment: Speci men Type: BLOOD SPECIMEN Performed By: #### Janet GEOVANI, 1987-11 #### [facility] CLIA [id number] [address] [place] [address] Platelet mean volume (Bld) [Entitic vol] 11.4 fL Normal 9.0-12.7 [facility] Comment on above: Order Comment: Speci men Type: BLOOD SPECIMEN Performed By: #### Janet GEOVANI, 1987-11 #### [facility] CLIA [id number] [address] [place] [address] Platelets (Bld) [#/Vol] 176 10*3/uL Normal 150-400 [facility] Comment on above: Order Comment: Speci men Type: BLOOD SPECIMEN Performed By: #### Janet GEOVANI1987-11 #### [facility] CLIA [id number] [address] [place] [address] RBC (Bld) [#/Vol] 5.29 10*6/uL Normal 4.20-6.00 [facility] Comment on above: Order Comment: Speci men Type: BLOOD SPECIMEN Performed By: #### Janet GEOVANI1987-11 #### [facility] CLIA [id number] [address] [place] [address] WBC (Bld) [#/Vol] 4.79 10*3/uL Normal 3.70-11.00 [facility] Comment on above: Order Comment: Speci men Type: BLOOD SPECIMEN Performed By: #### Janet GEOVANI1987-11 #### [facility] CLIA [id number] [address] [place] [address] CRP SerPl-mCncon 11-02-2020 CRP [Mass/Vol] 4.5 mg/dL High <0.9 [facility] Comment on above: Order Comment: Speci men Type: BLOOD SPECIMEN Performed By: #### Janet GEOVANI1987-11 #### [facility] CLIA [id number] [address] [place] [address] Comp Metab 2000 Pnl SerPlon 11-02-2020 Albumin [Mass/Vol] 3.7 g/dL Low 3.9-4.9 [facility] Comment on above: Order Comment: Speci men Type: BLOOD SPECIMEN Performed By: #### Janet GEOVANI, 1987-11 #### [facility] CLIA [id number] [address] [place] [address] ALP [Catalytic activity/Vol] 79 U/L Normal 38-113 [facility] Comment on above: Order Comment: Speci men Type: BLOOD SPECIMEN Performed By: #### GEOVANI, 1987-11 #### [facility] CLIA [id number] [address] [place] [address] ALT With P-5'-P [Catalytic activity/Vol] 48 U/L Normal 10-54 [facility] Comment on above: Order Comment: Speci men Type: BLOOD SPECIMEN Performed By: #### GEOVANI1987-11 #### [facility] CLIA [id number] [address] [place] [address] Anion gap [Moles/Vol] 11 mmol/L Normal 9-18 [facility] Comment on above: Order Comment: Speci men Type: BLOOD SPECIMEN Performed By: #### GEOVANI1987-11 #### [facility] CLIA [id number] [address] [place] [address] AST With P-5'-P [Catalytic activity/Vol] 82 U/L High 14-40 [facility] Comment on above: Order Comment: Speci men Type: BLOOD SPECIMEN Performed By: #### GEOVANI1987-11 #### [facility] CLIA [id number] [address] [place] [address] Bilirubin [Mass/Vol] 0.4 mg/dL Normal 0.2-1.3 [facility] Comment on above: Order Comment: Speci men Type: BLOOD SPECIMEN Performed By: #### GEOVANI1987-11 #### [facility] CLIA [id number] [address] [place] [address] Calcium [Mass/Vol] 8.8 mg/dL Normal 8.5-10.2 [facility] Comment on above: Order Comment: Speci men Type: BLOOD SPECIMEN Performed By: #### Janet GEOVANI1987-11 #### [facility] CLIA [id number] [address] [place] [address] Chloride [Moles/Vol] 106 mmol/L High 97-105 [facility] Comment on above: Order Comment: Speci men Type: BLOOD SPECIMEN Performed By: #### 1987-11 #### [facility] CLIA [id number] [address] [place] [address] CO2 [Moles/Vol] 26 mmol/L Normal 22-30 [facility] Comment on above: Order Comment: Speci men Type: BLOOD SPECIMEN Performed By: #### 1987-11 #### [facility] CLIA [id number] [address] [place] [address] Creatinine [Mass/Vol] 0.75 mg/dL Normal 0.73-1.22 [facility] Comment on above: Order Comment: Speci men Type: BLOOD SPECIMEN Performed By: #### 1987-11 #### [facility] CLIA [id number] [address] [place] [address] GFR/1.73 sq M.predicted MDRD (S/P/Bld) [Vol rate/Area] mL/min/{1.73_m2} Normal [facility] Comment on above: Order Comment: [...] accurately reflect actual GFR. Performed By: #### GEOVANI1987-11 #### [facility] CLIA [id number] [address] [place] [address] Glucose [Mass/Vol] 146 mg/dL High 74-99 [facility] Comment on above: Order Comment: Speci men Type: BLOOD SPECIMEN Result Comment: The [place] Diabetes Association (ADA) provides guidance for cutoff [...] Standards of Medical Care in Diabetes 2016, [place] [employer]. Diabetes Care. 2016.39(Suppl 1). Performed By: #### F GEOVANI1987-11 #### [facility] CLIA [id number] [address] [place] [address] Potassium [Moles/Vol] 3.4 mmol/L Low 3.7-5.1 [facility] Comment on above: Order Comment: Speci men Type: BLOOD SPECIMEN Performed By: #### 1987-11 #### [facility] CLIA [id number] [address] [place] [address] Protein [Mass/Vol] 6.5 g/dL Normal 6.3-8.0 [facility] Comment on above: Order Comment: Speci men Type: BLOOD SPECIMEN Performed By: #### F 1987-11 #### [facility] CLIA [id number] [address] [place] [address] Sodium [Moles/Vol] 143 mmol/L Normal 136-144 [facility] Comment on above: Order Comment: Speci men Type: BLOOD SPECIMEN Performed By: #### GEOVANI1987-11 #### [facility] CLIA [id number] [address] [place] [address] Urea nitrogen [Mass/Vol] 12 mg/dL Normal 9-24 [facility] Comment on above: Order Comment: Speci men Type: BLOOD SPECIMEN Performed By: #### F GEOVANI, 1987-11 #### [facility] CLIA [id number] [address] [place] [address] D dimer FEU PPP-mCncon 11-02 Fibrin D-dimer FEU (PPP) [Mass/Vol] 420 ng/mL FEU Normal <500 [facility] Comment on above: Order Comment: Speci men Type: BLOOD SPECIMEN Performed By: #### F ERR, 1987-11 #### [facility] CLIA [id number] [address] [place] [address] FERRITIN BLDon 11-02-2020 Ferritin [Mass/Vol] 751.9 ng/mL High 30.3-565.7 [facility] Comment on above: Order Comment: Speci men Type: BLOOD SPECIMEN Performed By: #### F ERR, 1987-11 #### [facility] CLIA [id number] [address] [place] [address] PLAN OF CAREon 11-02-2020 PLAN OF CARE HNO ID: [id number] Author: Warren Melo Service: Infectious Disease Author [...] MD 11/02/2020 5:30 PM pgr [phone] Normal [facility] PROGRESSon 11-02-2020 PROGRESS HNO ID: [id number] Author: Gadiel Douglas MD Service: General Internal Medicine Author Type: Physician Type: Progress Notes Filed: 11/02/2020 3:03 PM Note Text: DEPARTMENT OF HOSPITAL MEDICINE PROGRESS NOTE SERVICE DATE: 11/02/2020 SERVICE TIME: 3:01 PM Hospital Medicine/Primary Attending: Gadiel Douglas MD NIGHT AND WEEKEND COVERAGE: After 7pm please page [phone] SUBJECTIVE: Pt seen and examined. On 6 [...] reviewed for today's visit: CBC: Recent Labs 11/02/200 WBC 4.79 RBC 5.29 HB 14.8 HCT 45.9 PLT 176 MCV 86.8 MCH 28.0 MPV 11.4 Coags: Recent Labs 11/02/20439 INR 1.1 BMP: Recent Labs 11/02/20439 NA 143 K 3.4* CHLOR 106* CO2 26 BUN 12 CREAT 0.75 GLUC 146* CMP: Recent Labs 11/02/20 044 NA 143 K 3.4* CHLOR 106* CO2 26 BUN 12 CREAT 0.75 GLUC 146* TPROT 6.5 CA 8.8 TBILI 0.4 ALKPHOS 79 ALT 48 AST 82* ANION 11 Liver Function, Amylase, Lipase: Recent Labs 11/02/20439 TPROT 6.5 ALB 3.7* ALT 48 AST [...] -- 11/01/20 1500 activity - mobilize patient ([place]) 10/31/20 184 vte pharmacologic prophylaxis contraindicated (ia,de) 10/31/20 1845 graduated compression stockings ([place]) Lines, Drains, and Airways Line Peripheral 11/02/20 1205 Short Left Forearm <1 day VTE Prophylaxis: Lovenox 40mg Sub Q Daily Disposition: Home Plan of care discussed with: Patient SIGNATURE: Gadiel Douglas MD PATIENT NAME: Charo Shukla DATE: November 02, 2020 TIME: 3:01 PM PAGER/CONTACT #: Team color pager Disclaimer: Portions of this note may have been generated using [employer] voice recognition software. Reasonable efforts were made to correct any dictation errors that resulted due to the programming of this software but some may still be present. Please note, the time of this note does not reflect the time I saw this patient today, but the time of this documentation. Normal [facility] PT Pnl PPPon 11-02-2020 INR Coag (PPP) [Relative time] 1.1 {INR} Normal 0.9-1.3 [facility] Comment on above: Order Comment: Speci men Type: BLOOD SPECIMEN Result Comment: Milagros min K Antagonist (VKA) Therapeutic Range: INR 2 to 3 (Target INR of 2.5) Note: For patients treated with VKA drugs, such as warfarin, the [place] [employer]icians 2012 Guideline recommends [...] 2.5 to 3.5 (target INR of 3). Guyajoseph GH, et al. Chest 2012, 141:7S-47S Tiara RA, et al. JACC 2017, 70: 252-289 Performed By: #### F ERR, 1987- #### [facility] CLIA [id number] [address] [place] [address] PT Coag (PPP) [Time] 11.3 s Normal 9.7-13.0 [facility] Comment on above: Order Comment: Speci men Type: BLOOD SPECIMEN Performed By: #### F ERR, 1987-11 #### [facility] CLIA [id number] [address] [place] [id number] Bilirub Conj SerPl-mCncon Bilirubin.conjugate d [Mass/Vol] mg/dL Normal <0.2 [facility] Comment on above: Order Comment: Speci men Type: BLOOD SPECIMEN Performed By: #### 1 5152-2, 72889-8 ####[facility] [id number] [place] [address] CASE MGT INIT ASSESon 2020 CASE MGT INIT ASSES HNO ID: [id number] Author: Amanda Roche) DANIE Maldonado Service: Social Work Author Type: Animal Anatomist Type: Care Mgt Initial Assessment Filed: 11/01/2020 3:43 PM Note Text: CARE MANAGEMENT: ASSESSMENT AND DISCHARGE PLAN SERVICE DATE: November 01, 2020 SERVICE TIME: 3:39 PM PRIMARY CARE PHYSICIAN: Christine Puente ADMISSION STATUS: Inpatient Needs Prior to Discharge: Desat Study;Patient/Family MEDICAL: N/A Patient/[place] Guide Stated Goals: To have reduction in symptoms Health Insurance: [place] Health Issues Impacting Discharge Plan: Newly diagnosed Newly Diagnosed: + covid Last Discharge Date: 10/28/20 Is this Within the Past 30 days? 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 to Assist with AD Completion: No [...] None Has the Patient Been in a Snf Facility in the Past 30 days?: No SOCIAL: Living Arrangements: Home Lives With: Father Financial Resources: Other: See Comment (Cares for his father at home) Primary Contact: Extended Emergency Contact Information Primary Emergency Contact: LES SHUKLA Address: [place] [address] Relation: Father Supportive Patient Contact:: Yes Contact [...] Completely I feel financially burdened by my ude-wq-yvexwm expenses for my prescription medication:: 0 - Disagree Completely Risk Score: 0 Patient is categorized as: Low risk < 2 Are you interested in bedside delivery of your medications? Yes Is Patient Psychosocially Complex?: No ASSESSMENT AND PLAN: Medical Needs: Medical Needs: None Psychosocial Needs: Psychosocial Needs: None FREEDOM OF CHOICE EXPLAINED: [place] of Choice Given: Yes Level of Care Discussed: (home oxygen) Financial Disclosure Provided: Yes Financial Disclosure Comments: by phone Provider list within the patient's requested geographic area shared with the patient/family: No Reason: Patient chose DME company his father uses [employer] Home Telephone interview.. Patient lives with his father in [place].and is his caregiver. No services in place. No DME. Patient is currently on 3 liters oxygen. Referral placed to Zoya to follow in case of home oxygen needs.Plan maybe to go to his sister [place] an[place] until he and hisDad travel back to [place]. All 3 have covid.Will follow. SIGNATURE: DANIE Man PATIENT NAME: Charo Shukla DATE: November 01, 2020 TIME: 3:39 PM PAGER/CONTACT #: [phone] Normal [facility] CBC W Auto Diff [place] 2020 Basophils (Bld) [#/Vol] 10*3/uL Normal <0.11 [facility] Comment on above: Order Comment: Speci men Type: BLOOD SPECIMEN Performed By: #### 5 7021-8 #### [facility] CLIA [id number] [address] [place] [address] Basophils/100 WBC (Bld) 0.3 % Normal [facility] Comment on above: Order Comment: Speci men Type: BLOOD SPECIMEN Performed By: #### 5 7021-8 #### [facility] CLIA [id number] [address] [place] [address] Differential cell count method Nom (Bld) Auto Normal [facility] Comment on above: Order Comment: Speci men Type: BLOOD SPECIMEN Performed By: #### 5 7021-8 #### [facility] CLIA [id number] [address] [place] [address] Eosinophils (Bld) [#/Vol] 10*3/uL Normal <0.46 [facility] Comment on above: Order Comment: Speci men Type: BLOOD SPECIMEN Performed By: #### 5 7021-8 #### [facility] CLIA [id number] [address] [place] [address] Eosinophils/100 WBC (Bld) 0.0 % Normal [facility] Comment on above: Order Comment: Speci men Type: BLOOD SPECIMEN Performed By: #### 5 7021-8 #### [facility] CLIA [id number] [address] [place] [address] Erythrocyte distribution width (RBC) [Ratio] 13.4 % Normal 11.5-15.0 [facility] Comment on above: Order Comment: Speci men Type: BLOOD SPECIMEN Performed By: #### 5 7021-8 #### [facility] CLIA [id number] [address] [place] [address] Hematocrit (Bld) [Volume fraction] 42.8 % Normal 39.0-51.0 [facility] Comment on above: Order Comment: Speci men Type: BLOOD SPECIMEN Performed By: #### 5 7021-8 #### [facility] CLIA [id number] [address] [place] [address] Hemoglobin (Bld) [Mass/Vol] 14.0 g/dL Normal 13.0-17.0 [facility] Comment on above: Order Comment: Speci men Type: BLOOD SPECIMEN Performed By: #### 5 7021-8 #### [facility] CLIA [id number] [address] [place] [address] IMMATURE GRAN % 1.2 % Normal [facility] Comment on above: Order Comment: Speci men Type: BLOOD SPECIMEN Performed By: #### 5 7021-8 #### [facility] CLIA [id number] [address] [place] [address] IMMATURE GRAN ABS 0.07 k/uL Normal <0.10 [facility] Comment on above: Order Comment: Speci men Type: BLOOD SPECIMEN Performed By: #### 5 7021-8 #### [facility] CLIA [id number] [address] [place] [address] Lymphocytes (Bld) [#/Vol] 1.11 10*3/uL Normal 1.00-4.00 [facility] Comment on above: Order Comment: Speci men Type: BLOOD SPECIMEN Performed By: #### 5 7021-8 #### [facility] CLIA [id number] [address] [place] [address] Lymphocytes/100 WBC (Bld) 18.8 % Normal [facility] Comment on above: Order Comment: Speci men Type: BLOOD SPECIMEN Performed By: #### 5 7021-8 #### [facility] CLIA [id number] [address] [place] [address] MCH (RBC) [Entitic mass] 28.2 pg Normal 26.0-34.0 [facility] Comment on above: Order Comment: Speci men Type: BLOOD SPECIMEN Performed By: #### 5 7021-8 #### [facility] CLIA [id number] [address] [place] [address] MCHC (RBC) [Mass/Vol] 32.7 g/dL Normal 30.5-36.0 [facility] Comment on above: Order Comment: Speci men Type: BLOOD SPECIMEN Performed By: #### 5 7021-8 #### [facility] CLIA [id number] [address] [place] [address] MCV (RBC) [Entitic vol] 86.1 fL Normal 80.0-100.0 [facility] Comment on above: Order Comment: Speci men Type: BLOOD SPECIMEN Performed By: #### 5 7021-8 #### [facility] CLIA [id number] [address] [place] [address] Monocytes (Bld) [#/Vol] 0.29 10*3/uL Normal <0.87 [facility] Comment on above: Order Comment: Speci men Type: BLOOD SPECIMEN Performed By: #### 5 7021-8 #### [facility] CLIA [id number] [address] [place] [address] Monocytes/100 WBC (Bld) 4.9 % Normal [facility] Comment on above: Order Comment: Speci men Type: BLOOD SPECIMEN Performed By: #### 5 7021-8 #### [facility] CLIA [id number] [address] [place] [address] Neutrophils (Bld) [#/Vol] 4.41 10*3/uL Normal 1.45-7.50 [facility] Comment on above: Order Comment: Speci men Type: BLOOD SPECIMEN Performed By: #### 5 7021-8 #### [facility] CLIA [id number] [address] [place] [address] Neutrophils/100 WBC (Bld) 74.8 % Normal [facility] Comment on above: Order Comment: Speci men Type: BLOOD SPECIMEN Performed By: #### 5 7021-8 #### [facility] CLIA [id number] [address] [place] [address] Nucleated RBC (Bld) [#/Vol] 10*3/uL Normal <0.01 [facility] Comment on above: Order Comment: Speci men Type: BLOOD SPECIMEN Performed By: #### 5 7021-8 #### [facility] CLIA [id number] [address] [place] [address] Nucleated RBC/100 WBC (Bld) [Ratio] 0.0 /100 WBC Normal 0.0 [facility] Comment on above: Order Comment: Speci men Type: BLOOD SPECIMEN Performed By: #### 5 7021-8 #### [facility] CLIA [id number] [address] [place] [address] Platelet mean volume (Bld) [Entitic vol] 11.5 fL Normal 9.0-12.7 [facility] Comment on above: Order Comment: Speci men Type: BLOOD SPECIMEN Performed By: #### 5 7021-8 #### [facility] CLIA [id number] [address] [place] [address] Platelets (Bld) [#/Vol] 152 10*3/uL Normal 150-400 [facility] Comment on above: Order Comment: Speci men Type: BLOOD SPECIMEN Performed By: #### 5 7021-8 #### [facility] CLIA [id number] [address] [place] [address] RBC (Bld) [#/Vol] 4.97 10*6/uL Normal 4.20-6.00 [facility] Comment on above: Order Comment: Speci men Type: BLOOD SPECIMEN Performed By: #### 5 7021-8 #### [facility] CLIA [id number] [address] [place] [address] WBC (Bld) [#/Vol] 5.90 10*3/uL Normal 3.70-11.00 [facility] Comment on above: Order Comment: Speci men Type: BLOOD SPECIMEN Performed By: #### 5 7021-8 #### [facility] CLIA [id number] [address] [place] [address] CONSULTon 11-01-2020 CONSULT HNO ID: [id number] Author: Warren Melo Service: Infectious Disease Author Type: Physician Type: Consults Filed: 11/01/2020 5:22 PM Note Text: INFECTIOUS DISEASE CONSULT NOTE SERVICE DATE: 11/01/2020 SERVICE TIME: 1625 Consult for COVID-19 pneumonia Subjective INTERVAL HISTORY: [...] INTRAVENOUS, EVERY 12 HOURS -- -Doxycycline day #4-1/2 -Remdesivir dose #2 Levofloxacin dose #1 Objective [...] 01, 2020 TIME: 5:07 PM . Normal [facility] CONSULT HNO ID: [id number] Author: Sumaya Hawkins) Juan Service: Gastroenterology Author Type: Nurse Specialist Type: Consults Filed: 11/01/2020 2:21 PM Note Text: CONSULT NOTE SERVICE DATE: 11/01/2020 SERVICE TIME: 1:59 PM PHYSICIAN CONSULT (AK,AV,EU,FV,HL,NGHIA,MM,S P) Consult performed by: Sumaya Hawkins) Juan Consult ordered by: Erin Guerrero Reason for [...] Oral 99 20 93 % ? ? 10/31/20 2213 ? ? ? 101 20 93 % ? ? 10/31/20 2200 ? 89 % ? ? 10/31/205 138/80 (!) 38.4 ?C (101.1 ?F) Oral [...] CBC, Coags, BMP, Mg, Phos Recent Labs 11/01/2052810/31/20215510/31/20215410/31/20 1454 WBC 5.90 -- -- 6.51 HB [...] Liver Function, Amylase, AND Lipase Recent Labs 11/01/2052810/31/20145510/31/20 1454 TPROT 6.1* -- 6.6 ALB 3.4* [...] with Dr. Gandara/Kirsten/Bonnie/Hunter arriola/Tamika at discharge. Call [phone] for appointment LFT elevation - mild elevation [...] the on-call list for the GI physician health companion. SIGNATURE: Sumaya Martinez APRN.[employer] PATIENT NAME: Charo Shukla DATE: November 01, 2020 TIME: 1:59 PM Normal [facility] Comp Metab 2000 Pnl SerPlon 11-01-2020 Albumin [Mass/Vol] 3.4 g/dL Low 3.9-4.9 [facility] Comment on above: Order Comment: Speci men Type: BLOOD SPECIMEN Performed By: #### 1 5152-2, 74142-6 ####[facility] [id number] [place] [address] ALP [Catalytic activity/Vol] 78 U/L Normal 38-113 [facility] Comment on above: Order Comment: Speci men Type: BLOOD SPECIMEN Performed By: #### 1 5152-2, ####[facility] [id number] [place] [address] ALT With P-5'-P [Catalytic activity/Vol] 51 U/L Normal 10-54 [facility] Comment on above: Order Comment: Speci men Type: BLOOD SPECIMEN Performed By: #### 1 5152-2, ####[facility] [id number] [place] [address] Anion gap [Moles/Vol] 11 mmol/L Normal 9-18 [facility] Comment on above: Order Comment: Speci men Type: BLOOD SPECIMEN Performed By: #### 1 515-2, ####[facility] [id number] [place] [address] AST With P-5'-P [Catalytic activity/Vol] 100 U/L High 14-40 [facility] Comment on above: Order Comment: Speci men Type: BLOOD SPECIMEN Performed By: #### 1 515-2, ####[facility] [id number] [place] [address] Bilirubin [Mass/Vol] 0.4 mg/dL Normal 0.2-1.3 [facility] Comment on above: Order Comment: Speci men Type: BLOOD SPECIMEN Performed By: #### 1 5152-2, ####[facility] [id number] [place] [address] Calcium [Mass/Vol] 8.2 mg/dL Low 8.5-10.2 [facility] Comment on above: Order Comment: Speci men Type: BLOOD SPECIMEN Performed By: #### 1 515-2, ####[facility] [id number] [place] [address] Chloride [Moles/Vol] 105 mmol/L Normal 97-105 [facility] Comment on above: Order Comment: Speci men Type: BLOOD SPECIMEN Performed By: #### 1 5152-2, ####[facility] [id number] [place] [address] CO2 [Moles/Vol] 23 mmol/L Normal 22-30 [facility] Comment on above: Order Comment: Speci men Type: BLOOD SPECIMEN Performed By: #### 1 5152-2, ####[facility] [id number] [place] [address] Creatinine [Mass/Vol] 0.82 mg/dL Normal 0.73-1.22 [facility] Comment on above: Order Comment: Speci men Type: BLOOD SPECIMEN Performed By: #### 1 5152-2, ####[facility] [id number] [place] [address] GFR/1.73 sq M.predicted MDRD (S/P/Bld) [Vol rate/Area] mL/min/{1.73_m2} Normal [facility] Comment on above: Order Comment: [...] reflect actual GFR. Performed By: #### 1 5152-2, ####[facility] [id number] [place] [address] Glucose [Mass/Vol] 160 mg/dL High 74-99 [facility] Comment on above: Order Comment: Speci men Type: BLOOD SPECIMEN Result Comment: The [place] [employer] (ADA) provides guidance for cutoff [...] Standards of Medical Care in Diabetes 2016, [place] [employer]. Diabetes Care. 2016.39(Suppl 1). Performed By: #### 1 5152-2, 24624-4 ####[facility] [id number] [place] [address] Potassium [Moles/Vol] 3.5 mmol/L Low 3.7-5.1 [facility] Comment on above: Order Comment: Speci men Type: BLOOD SPECIMEN Performed By: #### 1 5152-2, 76220-6 ####[facility] [id number] [place] [address] Protein [Mass/Vol] 6.1 g/dL Low 6.3-8.0 [facility] Comment on above: Order Comment: Speci men Type: BLOOD SPECIMEN Performed By: #### 1 5152-2, 72048-1 ####[facility] [id number] [place] [address] Sodium [Moles/Vol] 139 mmol/L Normal 136-144 [facility] Comment on above: Order Comment: Speci men Type: BLOOD SPECIMEN Performed By: #### 1 5152-2, 77157-8 ####[facility] [id number] [place] [address] Urea nitrogen [Mass/Vol] 9 mg/dL Normal 9-24 [facility] Comment on above: Order Comment: Speci men Type: BLOOD SPECIMEN Performed By: #### 1 5152-2, 10933-7 ####[facility] [id number] [place] [address] PROGRESSon 11-01-2020 PROGRESS HNO ID: [id number] Author: Dari Oakley Service: Hospital Medicine Author Type: Physician Type: Progress Notes Filed: 11/01/2020 4:44 PM Note Text: Subjective - follow up note for [facility] Medicine, pt admit on 10/31, chart reviewed [...] as needed. Follow up with Dr. Gandara/Kirsten/Bonnie/Hunter dhu/Tamika at discharge. Call [phone] for appointment LFT elevation - mild elevation [...] Range: 1.00 - 4.00 k/uL 1.57 1.11 [place]% Latest Units: % 4.8 4.9 Abs [place] Latest Ref Range: <0.87 k/uL 0.31 0.29 [...] home with father at eventual dc. Normal [facility] PT Pnl PPPon 11-01-2020 INR Coag (PPP) [Relative time] 1.0 {INR} Normal 0.9-1.3 [facility] Comment on above: Order Comment: Speci men Type: BLOOD SPECIMEN Result Comment: Milagros min K Antagonist (VKA) Therapeutic Range: INR 2 to 3 (Target INR of 2.5) Note: For patients treated with VKA drugs, such as warfarin, the [place] [employer] 2012 Guideline recommends [...] Performed By: #### F ERR, 1987- #### [facility] CLIA [id number] [address] [place] [address] PT Coag (PPP) [Time] 10.8 s Normal 9.7-13.0 [facility] Comment on above: Order Comment: Speci men Type: BLOOD SPECIMEN Performed By: #### F ERR, 1987-11 #### [facility] CLIA [id number] [address] [place] [address] STREPTOCOCCUS PNEUMONIAE AGo n 11-01-2020 STREPTOCOCCUS PNEUMONIAE AG STREP PNEUMO AG RESULT: Negative for Stretococcus pneumoniae antigen. Presumptive negative for pneumococcal pneumonia, suggesting no current or recent pneumococcal infection. Infection due to S.pneumoniae cannot be ruled out since the antigen present in the sample may be below the detection limit of the test. Normal [facility] Comment on above: Performed By: #### S PNAG ####[facility]IA [id number] [place] [address] ALLIED HEALTHon 10-31-2020 ALLIED HEALTH HNO ID: [id number] Author: Rohit (Rt) Destin Bhatt Service: Radiology Author Type: Design Lead Type: Allied Health Filed: 10/31/2020 3:06 PM [...] Vi October 31, 2020 3:06 PM Normal [facility] CBC W Auto Diff [place] 2020 Basophils (Bld) [#/Vol] 10*3/uL Normal <0.11 [facility] Comment on above: Order Comment: Speci men Type: BLOOD SPECIMEN Performed By: #### F ERR, 1987-11 #### [facility] CLIA [id number] [address] [place] [address] Basophils/100 WBC (Bld) 0.3 % Normal [facility] Comment on above: Order Comment: Speci men Type: BLOOD SPECIMEN Performed By: #### GEOVANI1987-11 #### [facility] CLIA [id number] [address] [place] [address] Differential cell count method Nom (Bld) Auto Normal [facility] Comment on above: Order Comment: Speci men Type: BLOOD SPECIMEN Performed By: #### GEOVANI1987-11 #### [facility] CLIA [id number] [address] [place] [address] Eosinophils (Bld) [#/Vol] 10*3/uL Normal <0.46 [facility] Comment on above: Order Comment: Speci men Type: BLOOD SPECIMEN Performed By: #### GEOVANI1987-11 #### [facility] CLIA [id number] [address] [place] [address] Eosinophils/100 WBC (Bld) 0.0 % Normal [facility] Comment on above: Order Comment: Speci men Type: BLOOD SPECIMEN Performed By: #### GEOVANI1987-11 #### [facility] CLIA [id number] [address] [place] [address] Erythrocyte distribution width (RBC) [Ratio] 13.3 % Normal 11.5-15.0 [facility] Comment on above: Order Comment: Speci men Type: BLOOD SPECIMEN Performed By: #### GEOVANI1987-11 #### [facility] CLIA [id number] [address] [place] [address] Hematocrit (Bld) [Volume fraction] 46.7 % Normal 39.0-51.0 [facility] Comment on above: Order Comment: Speci men Type: BLOOD SPECIMEN Performed By: #### GEOVANI1987-11 #### [facility] CLIA [id number] [address] [place] [address] Hemoglobin (Bld) [Mass/Vol] 15.7 g/dL Normal 13.0-17.0 [facility] Comment on above: Order Comment: Speci men Type: BLOOD SPECIMEN Performed By: #### GEOVANI1987-11 #### [facility] CLIA [id number] [address] [place] [address] IMMATURE GRAN % 0.9 % Normal [facility] Comment on above: Order Comment: Speci men Type: BLOOD SPECIMEN Performed By: #### GEOVANI1987-11 #### [facility] CLIA [id number] [address] [place] [address] IMMATURE GRAN ABS 0.06 k/uL Normal <0.10 [facility] Comment on above: Order Comment: Speci men Type: BLOOD SPECIMEN Performed By: #### GEOVANI1987-11 #### [facility] CLIA [id number] [address] [place] [address] Lymphocytes (Bld) [#/Vol] 1.57 10*3/uL Normal 1.00-4.00 [facility] Comment on above: Order Comment: Speci men Type: BLOOD SPECIMEN Performed By: #### GEOVANI1987-11 #### [facility] CLIA [id number] [address] [place] [address] Lymphocytes/100 WBC (Bld) 24.1 % Normal [facility] Comment on above: Order Comment: Speci men Type: BLOOD SPECIMEN Performed By: #### GEOVANI1987-11 #### [facility] CLIA [id number] [address] [place] [address] MCH (RBC) [Entitic mass] 28.3 pg Normal 26.0-34.0 [facility] Comment on above: Order Comment: Speci men Type: BLOOD SPECIMEN Performed By: #### GEOVANI1987-11 #### [facility] CLIA [id number] [address] [place] [address] MCHC (RBC) [Mass/Vol] 33.6 g/dL Normal 30.5-36.0 [facility] Comment on above: Order Comment: Speci men Type: BLOOD SPECIMEN Performed By: #### GEOVANI1987-11 #### [facility] CLIA [id number] [address] [place] [address] MCV (RBC) [Entitic vol] 84.3 fL Normal 80.0-100.0 [facility] Comment on above: Order Comment: Speci men Type: BLOOD SPECIMEN Performed By: #### F GEOVANI1987-11 #### [facility] CLIA [id number] [address] [place] [address] Monocytes (Bld) [#/Vol] 0.31 10*3/uL Normal <0.87 [facility] Comment on above: Order Comment: Speci men Type: BLOOD SPECIMEN Performed By: #### GEOVANI1987-11 #### [facility] CLIA [id number] [address] [place] [address] Monocytes/100 WBC (Bld) 4.8 % Normal [facility] Comment on above: Order Comment: Speci men Type: BLOOD SPECIMEN Performed By: #### GEOVANI1987-11 #### [facility] CLIA [id number] [address] [place] [address] Neutrophils (Bld) [#/Vol] 4.55 10*3/uL Normal 1.45-7.50 [facility] Comment on above: Order Comment: Speci men Type: BLOOD SPECIMEN Performed By: #### GEOVANI1987-11 #### [facility] CLIA [id number] [address] [place] [address] Neutrophils/100 WBC (Bld) 69.9 % Normal [facility] Comment on above: Order Comment: Speci men Type: BLOOD SPECIMEN Performed By: #### GEOVANI1987-11 #### [facility] CLIA [id number] [address] [place] [address] Nucleated RBC (Bld) [#/Vol] 10*3/uL Normal <0.01 [facility] Comment on above: Order Comment: Speci men Type: BLOOD SPECIMEN Performed By: #### GEOVANI1987-11 #### [facility] CLIA [id number] [address] [place] [address] Nucleated RBC/100 WBC (Bld) [Ratio] 0.0 /100 WBC Normal 0.0 [facility] Comment on above: Order Comment: Speci men Type: BLOOD SPECIMEN Performed By: #### GEOVANI1987-11 #### [facility] CLIA [id number] [address] [place] [address] Platelet mean volume (Bld) [Entitic vol] 12.0 fL Normal 9.0-12.7 [facility] Comment on above: Order Comment: Speci men Type: BLOOD SPECIMEN Performed By: #### F GEOVANI1987-11 #### [facility] CLIA [id number] [address] [place] [address] Platelets (Bld) [#/Vol] 168 10*3/uL Normal 150-400 [facility] Comment on above: Order Comment: Speci men Type: BLOOD SPECIMEN Performed By: #### F GEOVANI1987-11 #### [facility] CLIA [id number] [address] [place] [address] RBC (Bld) [#/Vol] 5.54 10*6/uL Normal 4.20-6.00 [facility] Comment on above: Order Comment: Speci men Type: BLOOD SPECIMEN Performed By: #### F 1987-11 #### [facility] CLIA [id number] [address] [place] [address] WBC (Bld) [#/Vol] 6.51 10*3/uL Normal 3.70-11.00 [facility] Comment on above: Order Comment: Speci men Type: BLOOD SPECIMEN Performed By: #### F GEOVANI1987-11 #### [facility] CLIA [id number] [address] [place] [address] CRP SerPl-mCncon 10-31-2020 CRP [Mass/Vol] 11.4 mg/dL High <0.9 [facility] Comment on above: Order Comment: Speci men Type: BLOOD SPECIMEN Performed By: #### F GEOVANI1987-11 #### [facility] CLIA [id number] [address] [place] [address] Comp Metab 2000 Pnl SerPlon 10-31-2020 Albumin [Mass/Vol] 3.8 g/dL Low 3.9-4.9 [facility] Comment on above: Order Comment: Speci men Type: BLOOD SPECIMEN Performed By: #### F GEOVANI 1987-11 #### [facility] CLIA [id number] [address] [place] [address] ALP [Catalytic activity/Vol] 87 U/L Normal 38-113 [facility] Comment on above: Order Comment: Speci men Type: BLOOD SPECIMEN Performed By: #### GEOVANI1987-11 #### [facility] CLIA [id number] [address] [place] [address] ALT With P-5'-P [Catalytic activity/Vol] 62 U/L High 10-54 [facility] Comment on above: Order Comment: Speci men Type: BLOOD SPECIMEN Performed By: #### GEOVANI1987-11 #### [facility] CLIA [id number] [address] [place] [address] Anion gap [Moles/Vol] 14 mmol/L Normal 9-18 [facility] Comment on above: Order Comment: Speci men Type: BLOOD SPECIMEN Performed By: #### GEOVANI1987-11 #### [facility] CLIA [id number] [address] [place] [address] AST With P-5'-P [Catalytic activity/Vol] 112 U/L High 14-40 [facility] Comment on above: Order Comment: Speci men Type: BLOOD SPECIMEN Performed By: #### GEOVANI1987-11 #### [facility] CLIA [id number] [address] [place] [address] Bilirubin [Mass/Vol] 0.5 mg/dL Normal 0.2-1.3 [facility] Comment on above: Order Comment: Speci men Type: BLOOD SPECIMEN Performed By: #### GEOVANI1987-11 #### [facility] CLIA [id number] [address] [place] [address] Calcium [Mass/Vol] 8.2 mg/dL Low 8.5-10.2 [facility] Comment on above: Order Comment: Speci men Type: BLOOD SPECIMEN Performed By: #### GEOVANI1987-11 #### [facility] CLIA [id number] [address] [place] [address] Chloride [Moles/Vol] 104 mmol/L Normal 97-105 [facility] Comment on above: Order Comment: Speci men Type: BLOOD SPECIMEN Performed By: #### Janet , 1987-11 #### [facility] CLIA [id number] [address] [place] [address] CO2 [Moles/Vol] 22 mmol/L Normal 22-30 [facility] Comment on above: Order Comment: Speci men Type: BLOOD SPECIMEN Performed By: #### Janet ERR, 1987-11 #### [facility] CLIA [id number] [address] [place] [address] Creatinine [Mass/Vol] 0.90 mg/dL Normal 0.73-1.22 [facility] Comment on above: Order Comment: Speci men Type: BLOOD SPECIMEN Performed By: #### Janet 1987-11 #### [facility] CLIA [id number] [address] [place] [address] GFR/1.73 sq M.predicted MDRD (S/P/Bld) [Vol rate/Area] mL/min/{1.73_m2} Normal [facility] Comment on above: Order Comment: [...] accurately reflect actual GFR. Performed By: #### Janet 1987-11 #### [facility] CLIA [id number] [address] [place] [address] Glucose [Mass/Vol] 110 mg/dL High 74-99 [facility] Comment on above: Order Comment: Speci men Type: BLOOD SPECIMEN Result Comment: The [place] [employer] (ADA) provides guidance for cutoff [...] Standards of Medical Care in Diabetes 2016, [place] [employer]. Diabetes Care. 2016.39(Suppl 1). Performed By: #### F GEOVANI, 1987-11 #### [facility] CLIA [id number] [address] [place] [address] Potassium [Moles/Vol] 3.2 mmol/L Low 3.7-5.1 [facility] Comment on above: Order Comment: Speci men Type: BLOOD SPECIMEN Performed By: #### GEOVANI1987-11 #### [facility] CLIA [id number] [address] [place] [address] Protein [Mass/Vol] 6.6 g/dL Normal 6.3-8.0 [facility] Comment on above: Order Comment: Speci men Type: BLOOD SPECIMEN Performed By: #### GEOVANI1987-11 #### [facility] CLIA [id number] [address] [place] [address] Sodium [Moles/Vol] 140 mmol/L Normal 136-144 [facility] Comment on above: Order Comment: Speci men Type: BLOOD SPECIMEN Performed By: #### GEOVANI1987-11 #### [facility] CLIA [id number] [address] [place] [address] Urea nitrogen [Mass/Vol] 9 mg/dL Normal 9-24 [facility] Comment on above: Order Comment: Speci men Type: BLOOD SPECIMEN Performed By: #### GEOVANI1987-11 #### [facility] CLIA [id number] [address] [place] [address] D dimer FEU PPP-mCncon 10-31 Fibrin D-dimer FEU (PPP) [Mass/Vol] 970 ng/mL FEU High <500 [facility] Comment on above: Order Comment: Speci men Type: BLOOD SPECIMEN Performed By: #### F ERR, 1987-11 #### [facility] CLIA [id number] [address] [place] [address] ED NOTEon 10-31-2020 ED NOTE HNO ID: [id number] Author: Parker Melo MD Service: ? Author [...] held for possible GIB. Parker Melo MD Normal [facility] ED NOTE HNO ID: [id number] Author: Nessa AvilaRn) SARANYA Peña Service: Emergency Medicine Author Type: Registered Nurse Type: ED Notes Filed: 10/31/2020 7:06 PM Note Text: Received report from yareli BEAVER. Report has been called to floor. Awaiting clean bed Normal [facility] ED NOTE HNO ID: [id number] Author: Iman AvilaRn) SARANYA Phipps Service: Emergency Medicine Author Type: Registered Nurse Type: ED Notes Filed: 10/31/2020 2:12 PM Note Text: Pt diagnosed with COVID and has been back to ED several times. Pt today C/O black tarry stool. Pt also has a temp of 102.9 Normal [facility] ED NOTE HNO ID: [id number] Author: Martin Streeter (Medic) Jaelyn Rivera Service: ? Author Type: Wireless Communications Engineer and Design Lead Type: ED Notes Filed: 10/31/2020 2:07 PM Note Text: Bed: 15-ED Expected date: 10/31/20 Expected time: 1:29 PM Means of arrival: Hatch AGUSTÍN Comments: Afd 8 weakness Normal [facility] ED PROV NOTEon 10-31-2020 ED PROV NOTE HNO ID: [id number] Author: Parker Melo MD Service: Emergency Medicine [...] very dark tarry stool. 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 I agree with the resident's findings and plan as documented and have discussed the case and management of the patient's care with the resident. Please see my other note. Signature: Parker Melo MD Date: 10/31/2020 Time: 10:00 PM Parker Melo MD 10/31/20 2200 Normal [facility] FERRITIN BLDon 10-31-2020 Ferritin [Mass/Vol] 962.4 ng/mL High 30.3-565.7 [facility] Comment on above: Order Comment: Speci men Type: BLOOD SPECIMEN Performed By: #### F [id number] #### [facility] CLIA [id number] [address] [place] [address] HEMATOCRIT (HCT)on 1 Hematocrit (Bld) [Volume fraction] 45.3 % Normal 39.0-51.0 [facility] Comment on above: Order Comment: Speci men Type: BLOOD SPECIMEN Performed By: #### F GEOVANI1987-11 #### [facility] CLIA [id number] [address] [place] [address] HEMOGLOBIN (HGB)on 1 Hemoglobin (Bld) [Mass/Vol] 14.6 g/dL Normal 13.0-17.0 [facility] Comment on above: Order Comment: Speci men Type: BLOOD SPECIMEN Performed By: #### F ERR, 1987-11 #### [facility] CLIA [id number] [address] [place] [address] HISTORY PHYSICALon HISTORY PHYSICAL HNO ID: [id number] Author: Erin Guerrero Service: Hospital Medicine Author Type: Nurse Practitioner Type: HANDP Filed: 10/31/2020 7:12 PM Note Text: DEPARTMENT OF HOSPITAL MEDICINE HISTORY AND PHYSICAL EXAM SERVICE DATE: 10/31/2020 SERVICE TIME: 6:58 PM Primary Care Physician: Christine Puente NIGHT AND WEEKEND COVERAGE: After 7pm call #[phone] Chief complaint: Shortness of breath, cough worsening [...] Date Value 10/31/2020 62 (H) URINLAYSIS Specific [place], Ur Date Value Ref Range Status 10/31/2020 [...] mild right basilar atelectasis or developing pneumonia. Tire Trucker: GARFIELD Transcribe Date/Time: Oct 31 2020 3:08P [...] but the time of this documentation. Normal [facility] Hemoccult Stl Ql IAon 2020 Lower GI hemoglobin IA Ql (Stl) Positive Abnormal Negative [facility] Comment on above: Order Comment: Speci men Type: STOOL SPECIMEN Performed By: #### 2 9771-3 ####[facility] [id number] [place] [address] Lipase SerPl-cCncon 11-01-19 21 Lipase [Catalytic activity/Vol] 49 U/L Normal 16-61 [facility] Comment on above: Order Comment: Speci men Type: BLOOD SPECIMEN Performed By: #### F ERR, 1987-11 #### [facility] CLIA [id number] [address] [place] [address] Magnesium SerPl-mCncon 10-31 Magnesium [Mass/Vol] 1.8 mg/dL Normal 1.7-2.3 [facility] Comment on above: Order Comment: Speci men Type: BLOOD SPECIMEN Performed By: #### F ERR, 1987-11 #### [facility] CLIA [id number] [address] [place] [address] PROCALCITONIN (LAB)on 2020 Procalcitonin [Mass/Vol] 0.58 ng/mL High <0.09 [facility] Comment on above: Order Comment: Speci men Type: BLOOD SPECIMEN Result Comment: For a guided interpretation of test results, please visit the Change in Procalcitonin Calculator, [email or web address]. Performed By: #### P ROCAL #### [facility] CLIA [id number] [address] [place] [address] PT Pnl PPPon 10-31-2020 INR Coag (PPP) [Relative time] 1.1 {INR} Normal 0.9-1.3 [facility] Comment on above: Order Comment: Speci men Type: BLOOD SPECIMEN Result Comment: Milagros min K Antagonist (VKA) Therapeutic Range: INR 2 to 3 (Target INR of 2.5) Note: For patients treated with VKA drugs, such as warfarin, the [place] 2012 Guideline recommends [...] Chest 2012, 141:7S-47S Tiara RA, et al. [facility] 2017, 70: 252-289 Performed By: #### F ERR, 1987-11 #### [facility] CLIA [id number] [address] [place] [address] PT Coag (PPP) [Time] 10.9 s Normal 9.7-13.0 [facility] Comment on above: Order Comment: Speci men Type: BLOOD SPECIMEN Performed By: #### F ERR, 1987-11 #### [facility] CLIA [id number] [address] [place] [address] Phosphate SerPl-mCncon 10-31 Phosphate [Mass/Vol] 3.3 mg/dL Normal 2.7-4.8 [facility] Comment on above: Order Comment: Speci men Type: BLOOD SPECIMEN Performed By: #### F GEOVANI1987-11 #### [facility] CLIA [id number] [address] [place] [address] Urinalysis complete pnl Uron 10-31-2020 Bacteria LM.HPF (Urine sed) [#/Area] None Seen Normal None Seen [facility] Comment on above: Order Comment: Speci men Type: BLOOD SPECIMEN Performed By: #### GEOVANI1987-11 #### [facility] CLIA [id number] [address] [place] [address] Bilirubin Ql (U) Detected. Unable to confirm. Abnormal Negative [facility] Comment on above: Order Comment: Speci men Type: BLOOD SPECIMEN Performed By: #### GEOVANI1987-11 #### [facility] CLIA [id number] [address] [place] [address] Clarity (Unsp spec) Turbid Abnormal Clear [facility] Comment on above: Order Comment: Speci men Type: BLOOD SPECIMEN Performed By: #### GEOVANI1987-11 #### [facility] CLIA [id number] [address] [place] [address] Color (U) Dark Yellow Abnormal Yellow [facility] Comment on above: Order Comment: Speci men Type: BLOOD SPECIMEN Performed By: #### GEOVANI1987-11 #### [facility] CLIA [id number] [address] [place] [address] Epithelial cells LM.HPF (Urine sed) [#/Area] 1.6 /[HPF] Normal [facility] Comment on above: Order Comment: Speci men Type: BLOOD SPECIMEN Performed By: #### GEOVANI1987-11 #### [facility] CLIA [id number] [address] [place] [address] Glucose Test strip (U) [Mass/Vol] Negative Normal Negative [facility] Comment on above: Order Comment: Speci men Type: BLOOD SPECIMEN Performed By: #### F GEOVANI1987-11 #### [facility] CLIA [id number] [address] [place] [address] Hemoglobin Ql (U) Small Abnormal Negative [facility] Comment on above: Order Comment: Speci men Type: BLOOD SPECIMEN Performed By: #### GEOVANI1987-11 #### [facility] CLIA [id number] [address] [place] [address] Hyaline casts (Urine sed) [#/Area] 1-3 /LPF Abnormal 0 /LPF [facility] Comment on above: Order Comment: Speci men Type: BLOOD SPECIMEN Performed By: #### GEOVANI1987-11 #### [facility] CLIA [id number] [address] [place] [address] Ketones Ql (U) 15 mg/dL Abnormal Negative [facility] Comment on above: Order Comment: Speci men Type: BLOOD SPECIMEN Performed By: #### GEOVANI1987-11 #### [facility] CLIA [id number] [address] [place] [address] Leukocyte esterase Test strip Ql (U) Negative Normal Negative [facility] Comment on above: Order Comment: Speci men Type: BLOOD SPECIMEN Performed By: #### GEOVANI1987-11 #### [facility] CLIA [id number] [address] [place] [address] Nitrite Ql (U) Negative Normal Negative [facility] Comment on above: Order Comment: Speci men Type: BLOOD SPECIMEN Performed By: #### GEOVANI1987-11 #### [facility] CLIA [id number] [address] [place] [address] pH (U) 6.0 [pH] Normal 5.0-8.0 [facility] Comment on above: Order Comment: Speci men Type: BLOOD SPECIMEN Performed By: #### GEOVANI1987-11 #### [facility] CLIA [id number] [address] [place] [address] Protein (U) [Mass/Vol] 100 mg/dL Abnormal Negative [facility] Comment on above: Order Comment: Speci men Type: BLOOD SPECIMEN Performed By: #### Janet OLIVO, 1987-11 #### [facility] CLIA [id number] [address] [place] [address] RBC LM.HPF (Urine sed) [#/Area] 3-5 /HPF Abnormal 0-3 /HPF [facility] Comment on above: Order Comment: Speci men Type: BLOOD SPECIMEN Performed By: #### Janet OLIVO, 1987-11 #### [facility] CLIA [id number] [address] [place] [address] Specific gravity (U) [Rel density] 1.026 Normal 1.005-1.030 [facility] Comment on above: Order Comment: Speci men Type: BLOOD SPECIMEN Performed By: #### Janet OLIVO, 1987-11 #### [facility] CLIA [id number] [address] [place] [address] Urobilinogen Test strip Ql (U) 2.0 EU/dL Abnormal 0.2-1.0 EU/dL [facility] Comment on above: Order Comment: Speci men Type: BLOOD SPECIMEN Performed By: #### Janet OLVIO, 1987-11 #### [facility] CLIA [id number] [address] [place] [address] WBC LM.HPF (Urine sed) [#/Area] 6-10 /HPF Abnormal 0-5 /HPF [facility] Comment on above: Order Comment: Speci men Type: BLOOD SPECIMEN Performed By: #### Janet OLIVO1987-11 #### [facility] CLIA [id number] [address] [place] [address] XR CHEST 1V FRONTALon 2020 XR CHEST [...] mild right basilar atelectasis or developing pneumonia. Tire Trucker: PSCB Transcribe Date/Time: Oct 31 2020 3:08P Dictated by : KOLBY ECHEVERRIA MD This examination was interpreted and the report reviewed and electronically signed by: KOLBY ECHEVERRIA MD on Oct 31 2020 3:10PM EST [id number] [facility] ALLIED HEALTHon 10-28-2020 ALLIED HEALTH HNO ID: [id number] Author: Vivien AvilaRt) Destin Mata Service: Radiology Author Type: Design Lead Type: Allied Health Filed: 10/28/2020 10:39 AM [...] RT Rita October 28, 2020 10:[address] [facility] ED NOTEon 10-28-2020 ED NOTE HNO ID: [id number] Author: Consuelo AvilaRn) SARANYA Menon Service: Emergency Medicine Author Type: Registered Nurse Type: ED Notes Filed: 10/28/2020 11:35 AM Note Text: Pt ambulated with pulse ox, with steady gait; saturation 93-94%. Dr Badillo notified. [facility] ED NOTE HNO ID: [id number] Author: Rosita AvilaRn) SARANYA Steinberg Service: ? Author Type: Registered Nurse Type: ED Notes Filed: 10/28/2020 9:52 AM Note Text: Bed: 36-ED Expected date: Expected time: Means of arrival: Comments: TRIAGE Normal [facility] ED PROV NOTEon 10-28-2020 ED PROV NOTE HNO ID: [id number] Author: Michele Yu DO Service: Emergency Medicine [...] hypoxic. Michele Yu DO 11/07/20 1840 Normal [facility] ED PROV NOTE HNO ID: [id number] Author: Michele Yu DO Service: Emergency Medicine [...] to patient satisfaction. SIGNATURE: DO Lelia Jeffers (Res) Asad Resident 10/28/20 1534 Please see separate attending physician note Michele Yu DO 11/07/20 1841 Normal [facility] XR CHEST 1V FRONTALon 2020 [...] lobe pneumonia. Probable trace right pleural effusion. [facility] Transcribe Date/Time: Oct 28 2020 10:43A Dictated by : ROC CROSS MD This examination was interpreted and the report reviewed and electronically signed by: ROC CROSS MD on Oct 28 2020 10:47AM EST [id number] Normal [facility] 2019 CORONAVIRUSon 2018 CORONAVIRUS COVID 19 SOURCE FINISHER DENTURE: UPPER RESPIRATORY TRACT SWAB COVID 19 RESULT FINISHER DENTURE: Positive for COVID19 (SARS CoV2) by PCR. This test was developed and its performance characteristics determined by [facility]'s [facility] [place]. This test has been authorized by FDA under an Emergency Use Authorization (EUA). This test has been validated in accordance with the FDA's Guidance Document Policy for Diagnostics Testing in Laboratories Certified to Perform High Complexity Testing under CLIA prior to Emergency use Authorization for Coronavirus Disease 2019 during the Public Health Emergency issued on September 26, 2019. Test performed by [facility], [facility] [place], [address] [address] [facility] Comment on above: Performed By: #### C OVID ####[facility] [id number] [place] [address] ALLIED HEALTHon 10-24-2020 ALLIED HEALTH HNO ID: [id number] Author: Jose A AvilaRtDestin Camarena Service: Radiology Author Type: Design Lead Type: Allied Health Filed: 10/23/2020 10:57 PM [...] RT Ivan October 23, 2020 10:[address] [facility] ED NOTEon 10-24-2020 ED NOTE HNO ID: [id number] Author: Hanny AvilaRn) SARANYA Yoder Service: Emergency Medicine Author Type: Registered Nurse Type: ED Notes Filed: 10/24/2020 12:29 AM Note Text: ambulated with out any difficulty sp02 ranged between 93-95% [facility] ED NOTE HNO ID: [id number] Author: Jose R AvilaRn) SARANYA Wheeler Service: ? Author Type: Registered Nurse Type: ED Notes Filed: 10/23/2020 11:56 PM Note Text: Bed: 28-ED Expected date: Expected time: Means of arrival: Comments: triage Normal [facility] ED PROV NOTEon 10-24-2020 ED PROV NOTE HNO ID: [id number] Author: Kayley Puente MD Service: Emergency Medicine [...] and on ECMO in the ICU at [facility]. Patient was exposed to his sister. [...] DO Martin Devlin (Res) DO Selvin Resident 10/24/20 0059 I have personally seen and examined this [...] signs Kayley Puente MD 10/24/20 0411 Normal [facility] ED Triage Noteon 10-24-2020 ED Triage Note HNO ID: [id number] Author: Rowena Garcia (Evin-Yann) EVIN Olson Service: Emergency Medicine Author Type: Physician Fire Sprinkler Inspector Type: ED Triage Notes Filed: 10/23/2020 10:42 [...] XR: chest SIGNATURE: Rowena Olson PA-C Normal [facility] XR CHEST 1V FRONTALon 2020 [...] bony abnormalities. IMPRESSION: No acute radiographic abnormality. Tire Trucker: GARFIELD Transcribe Date/Time: Oct 23 2020 11:29P Dictated by : YAN POST MD This examination was interpreted and the report reviewed and electronically signed by: YAN POST MD on Oct 23 2020 11:29PM EST Normal [facility] Vital Signs Date Time Vital Sign Value Performing Clinician Facility 12-31-2023 11:48-0400 Body height 160.02 cm [facility] 12-31-2023 11:48-0400 Body mass index (BMI) [Ratio] 38 kg/m2 [facility] 12-31-2023 11:48-0400 Body weight 97.52 kg [facility] 12-31-2023 11:48-0400 Diastolic blood pressure 86 mm[Hg] [facility] 12-31-2023 11:48-0400 Heart rate 96 /min [facility] 12-31-2023 11:48-0400 Systolic blood pressure 138 mm[Hg] [facility] 12-26-2023 10:31-0400 Body height 160.02 cm [facility] 12-26-2023 10:31-0400 Body mass index (BMI) [Ratio] 38 kg/m2 [facility] 12-26-2023 10:31-0400 Body temperature 98.3 [degF] [facility] 12-26-2023 10:31-0400 Body weight 97.52 kg [facility] 12-26-2023 10:31-0400 Diastolic blood pressure 89 mm[Hg] [facility] 12-26-2023 10:31-0400 Heart rate 89 /min [facility] 12-26-2023 10:31-0400 Systolic blood pressure 130 mm[Hg] [facility] 10-08-2023 13:07-0400 Body height 160.02 cm [facility] 10-08-2023 13:07-0400 Body mass index (BMI) [Ratio] 38.3 kg/m2 [facility] 10-08-2023 13:07-0400 Body weight 98.2 kg [facility] 10-08-2023 13:07-0400 Diastolic blood pressure 92 mm[Hg] [facility] 10-08-2023 13:07-0400 Heart rate 88 /min [facility] 10-08-2023 13:07-0400 Systolic blood pressure 137 mm[Hg] [facility] 04-25-2023 14:00-0400 Body height 160.02 cm Christine White Other [employer] [facility] [employer] Other 04-25-2023 14:00-0400 Body mass index (BMI) [Ratio] 41.62 kg/m2 Christine White Other [employer] Other 04-25-2023 14:00-0400 Body weight 106.6 kg Christine White Other [employer] Other 04-25-2023 14:00-0400 Diastolic blood pressure 98 mm[Hg] Christine White Other [employer] Other 04-25-2023 14:00-0400 Systolic blood pressure 136 mm[Hg] Christine White Other [facility] Other 01-10-2023 10:15-0400 Body height 160.02 cm Christine White Other [facility] Other 01-10-2023 10:15-0400 Body mass index (BMI) [Ratio] 37.37 kg/m2 Christine White Other [employer] Other 01-10-2023 10:15-0400 Body weight 95.71 kg Christine White Other [employer] Other 01-10-2023 10:15-0400 Diastolic blood pressure 85 mm[Hg] Christine White Other [facility] Other 01-10-2023 10:15-0400 Systolic blood pressure 126 mm[Hg] Christine White Other [facility] Other 09-14-2022 15:00-0500 Body height 160.02 cm Christine White Other [facility] Other 09-14-2022 15:00-0500 Body mass index (BMI) [Ratio] 34.18 kg/m2 Christine White Other [facility] Other 09-14-2022 15:00-0500 Body weight 87.54 kg Christine White Other [facility] Other 09-14-2022 15:00-0500 Diastolic blood pressure 72 mm[Hg] Christine White Other [facility] Other 09-14-2022 15:00-0500 SaO2% (BldA) [Mass fraction] 98 % Christine White Other [facility] Other 09-14-2022 15:00-0500 Systolic blood pressure 110 mm[Hg] Christine White Other [employer] Other Encounters Encounter Date Encounter Type Care Provider Facility Start: 02-04-2024 End: 02-04-2024 ambulatory [facility] Work Phone: Start: 02-04-2024 End: 02-04-2024 Patient encounter procedure [facility]ly [facility] Physician [facility] Work Phone: Start: 12-31-2023 End: 12-31-2023 ambulatory [facility] Work Phone: Start: 12-31-2023 End: 12-31-2023 Patient encounter procedure [facility] Physician [facility] Work Phone: Start: 12-26-2023 End: 12-26-2023 ambulatory [facility] Work Phone: Start: 12-26-2023 End: 12-26-2023 Patient encounter procedure [facility] Physician [facility] Work Phone: Start: 10-08-2023 End: 10-08-2023 Patient encounter procedure [facility] Physician [facility] Work Phone: Start: 04-25-2023 End: 04-25-2023 ambulatory Christine White Other [employer] Other Start: 04-25-2023 Office outpatient vi sit 15 minutes Christine White [facility] Start: 04-18-2023 End: 04-18-2023 ambulatory Christine White Other [employer] Other Start: 04-18-2023 Telephone encounter Christine White [facility] Start: 02-08-2023 End: 02-08-2023 ambulatory Christine White Other [employer] Other Start: 02-08-2023 Telephone encounter Christine White [facility] Start: 01-25-2023 End: 01-25-2023 ambulatory Christine White Other [employer] Other Start: 01-25-2023 Telephone encounter Christine White [facility] Start: 01-10-2023 End: 01-10-2023 ambulatory Christine White Other [facility] Other Start: 01-10-2023 Office outpatient vi sit 15 minutes Christine Christopher [facility] Start: 10-10-2022 End: 10-10-2022 ambulatory Christine White Other [employer] Other Start: 10-10-2022 Telephone encounter Christine Christopher [facility] Start: 09-26-2022 End: 09-26-2022 ambulatory Christine White Other [employer] Other Start: 09-26-2022 Telephone encounter Christine Christopher [facility] Start: 09-14-2022 End: 09-14-2022 ambulatory Christine White Other [facility] Other Start: 09-14-2022 Office outpatient vi sit 25 minutes Christine White [facility] Start: 09-13-2022 End: 09-13-[address] CHRISTINE WHITE Facility:[facility] Start: 08-28-2022 (Televisit) Televisit Christine Gonzales [facility] Start: 08-28-2022 End: 08-28-2022 ambulatory Christine White Other [facility] Other Start: 05-12-2022 End: 05-12-[address] CHRISTINE WHITE Facility:[facility] Start: 09-18-2021 End: 09-19-[address] CHRISTINE WHITE Facility:[facility] Procedures Date Procedure Procedure Detail Performing Clinician Start: 02-21-2018 General examination of patient Christine Christopher Other Viral screening Christine Christopher Other Plan of Treatment Date Care Activity Detail Author Comprehensive metabo lic 2000 panel - Serum or Plasma [facility] enter [facility] Immunizations Immunization Date Immunization Notes Care Provider Fa cility 05-26-2020 influenza virus vaccine, split virus (incl. purified surface antigen) Christine Christopher Other [facility] Other 05-26-2020 influenza virus vaccine, unspecified formulation [facility] Payers Date Payer Category Payer Unknown [id number] 1992 Unknown [id number] 1992 Unknown [id number] 1957 Self-pay [id number] 1957 Unknown [id number] Medicaid [address] [place] [id number] 18 Unknown [facility] [id number] Social History Date Type Detail Facility Unknown if ever smoked [facility] Other Sex Assigned At Sex Assigned At Bir th [facility] Other Start: 1990 Sex Assigned At Male F [facility] Clinical Notes 10-25-2020 to 04-25-2023 Note [...] a limiting factor for treatment and rx. [facility] Other 07-14-2023 Evaluation note* Encounter Date Diagnosis Assessment Notes Treatment Notes Treatment Clinical Notes Jan, Type 2 diabetes mellitus with hyperglycemia, without long-term current use of insulin (ICD-10 - E11.65) [employer] Other 06-30-2023 Evaluation note* Encounter Date Diagnosis Assessment Notes Treatment Notes Treatment Clinical Notes Dec, Type 2 diabetes mellitus with hyperglycemia, without long-term current use of insulin (ICD-10 - E11.65) [facility] Other 06-15-2023 Evaluation note* Encounter Date Diagnosis [...] med that his father is not using. [employer] Other 02-17-2023 Evaluation note* Encounter Date Diagnosis [...] states states he will purchase them at [employer]. Aug, Essential (primary) hypertension (ICD-10 - I10) Blood pressure normal today continue lisinopril. New diagnosis. Aug, Other chest pain (ICD-10 - R07.89) [facility] Other 01-31-2023 Evaluation note* Encounter Date Diagnosis Assessment Notes Treatment Notes Treatment Clinical Notes Jul, Gastroenteritis (ICD-10 - K52.9) Discussed symptom management. Advised to take [id number] medicines as instructed. Work note given. Encouraged him to stay hydrated to prevent the possible dehydration headaches he reported. [facility] Other 03-30-2021 NoteHNO ID: [id number] Author: Jackie Husain [facility] Service: ? Author Type: ? Type: Progress Notes Filed: 10/25/2020 1:12 PM Note Text: COVID COMMUNITY MONITORING PROGRAM Provider Action/FYI: Day 3 Patient aware of results Symptoms: body aches, fever,cough, slight chest pain Told patient if any symptoms worsen contact PCP or nurse health companion Monitoring Call: Date of symptoms onset: No data recorded Patient is COVID-19 positive Contact made with patient Yes Patient identified by name and . Discussed care with patient Initial intake? Yes (Positive) - Bethanie, my name is Jackie Husain LAKSHMI and I am calling from the [facility]. I am calling to notify you [...] one for you. If you have a non-[facility] PCP, please follow up with them [...] like to speak with a social work sports team manager to help give you support for any [...] open, to increase airflow (more content not included)...[facility]03-30-2021 NotePatient Outreach ([facility]) RAMONACHARO GONZALEZ ([id number]) 1990 M Date Time Provider Department 10/25/20 JACKIE HUSAIN During your visit today, we recorded the following information about you: Jackie Husain [facility] 10/25/2020 1:12 PM Signed COVID COMMUNITY MONITORING PROGRAM Provider Action/FYI: Day 3 Patient aware of results Symptoms: body aches, fever,cough, slight chest pain Told patient if any symptoms worsen contact PCP or nurse health companion Monitoring Call: Date of symptoms onset: No data recorded Patient is COVID-19 positive Contact made with patient Yes Patient identified by name and . Discussed care with patient Initial intake? Yes (Positive) - Bethanie, my name is Jackie MARTINS and I am calling from the [facility]. I am calling to notify you [...] one for you. If you have a non-[facility] PCP, please follow up with them [...] like to speak with a social work sports team manager to help give you support for any [...] can occur with COVID. (more content not included)...[facility] note[facility] InformationNort AppN[employer] Other Evaluation note* Diagnosis Onset Date Resolution Status Type 2 diabetes mellitus with hyperglycemia [facility] Work Phone: Evaluation note* Diagnosis Onset Date Resolution Status Sinusitis, acute maxillary a cute Type 2 diabetes mellitus with hyperglycemia acute Contusion, hand acute [facility] Work Phone: History general Narrative - Reported* Type Description Date Medical History Bilateral impacted cerumen Medical History Acute asthma Medical History Acute bronchitis with bronchospa sm Medical History Epigastric fullness Medical History Left foot pain Medical History Spasm of thoracic back muscle Medical History Diabetes Medical History Hypertension [employer] Other History general Narrative - Reported* Type Description [...] no changes required, Problem Status : Active, [employer] Other Summary Purpose Family History Relationship Condition Age at Onset Recorded Date/T bambi Not Specified Unknown Relationship Condition Age at Onset Recorded Date/T bambi mother Unknown Advance Directives Advance Directive Response Recorded Date/ Time Advance Directives No October 02 4:56pm Hospital Course Note HNO ID: [id number] Author: Erna Douglas MD Service: General Internal [...] Type 2 diabetes [place] with hyperglycemia Chief Complaint Check Up head congetion ER follow up Reason for Visit Type 2 diabetes [place] with hyperglycemia Chief Complaint head congetion ER follow up Reason for Visit Sinusitis, acute max illary Type 2 diabetes mellitus with hyperglycemia Contusion, hand Additional Source Comments (unrecognized sect ion and content) No Status Records FoundNo Status Records FoundNo Status Records FoundNo Status Records Found INFORMATION SOURCE (unrecogn ized section and content) DATE CREATED AUTHOR 11/07/2020 [facility] DATE CREATED AUTHOR AUTHOR'S ORGANIZ ATION 11/22/2020 [facility] DATE CREATED AUTHOR AUTHOR'S ORGANIZ ATION 08/27/2021 [facility] DATE CREATED AUTHOR AUTHOR'S ORGANIZ ATION 09/17/2022 [facility] REASON FOR VISIT (unrecogniz ed [...] December 26, 2023 End: December 26, 2023 Team Status: Inactive Member Role Status Dates Christine White MD Primary Care Provide r, Attending Provider Active Start: December 31, 2023 End: December 31, 2023 Team Status: Inactive Member Role Status Dates Christine White MD Primary Care Provide r, Attending Provider Active Start: February 04, 2024 End: February 04, 2024 Goals (unrecognized section and content) Goals may [...] BE BASED ON THE PRIMARY CLINICAL RECORDS. [employer] provides no warranty or guarantee of the accuracy or completeness of information in this document.
[2024-03-20 13:19] LABS: Internal Control Within Normal Limits
[2024-03-23 12:39] LABS: SARS-CoV-2 Ag NEGATIVE (NEGATIVE)
== END 2024-03-19 16:01 | disposition home or self-care (01) ==
LOC: LAB 16:00
PROVIDERS: PCP Family Medicine; Visit Provider Family Medicine
DX: Z20.822 Contact with and (suspected) exposure to COVID-19 (principal)
CPT/HCPCS: 87635; 87811

== ENCOUNTER 2025-01-21 13:43 | Emergency (ER) | payer OTHER, SELFPAY ==
[2025-01-21 13:45] VITALS: BP 133/96; PULSE 89; TEMP 36.4; O2SAT 97; BMI 27.8
--- NOTE | 2025-01-21 13:54 | PC.NURSE ---
chest, back and bilat shoulders and arms with sunburn and small blisters to bilat shoulders. no drainage observed
--- OUTSIDE RECORDS SUMMARY | 2025-01-21 13:55 | XMS_ITS | Clinical Summary ---
Author Organization [facility] Address [address] [place] [id number] Care Team Providers Care Creative Writing English Professor Name Role Phone Suzette Umaña MD Primary Care Provider [phone] Allergies Active Allergy Reactions Criticality Noted Date Comments Amoxicillin-Pot Clavulanate Unknown 01/22/20 14 Ceftriaxone Unknown 03/29/2015 Codeine 06/07/2008 Isopropyl Alcohol Unknown 01/21/2014 Prednisolone Unknown 01/21/2014 Medications ALBUTEROL SULFATE 5 MG/ML (0.5 %) NEB SOLUTION Inhale 2 puffs every 6 hours around the clock then as needed 1 0 06/15/2008 Active FLUTICASONE 110 MCG/ACTUATION AEROSOL INHALER Inhale 2 puffs twice a day 1 0 06/15/2008 Active ACETAMINOPHEN 325 MG TAB 2 Tab ORAL EVERY 6 HOURS NEEDED for fever/pain qs 0 06/15/2008 Active famotidine(PEPCI D 20 MG TAB) Take one(1) tablet daily. 15 0 06/15/2008 Active Active Problems Problem Noted Date Diagnosed Date Acute hypoxemic respiratory failure due to COVID -19 10/31/2020 Immunizations Immunization Administration Dates Next Due influenza vaccine, whole virus 06/15/2008 Social History Tobacco Use Types Packs/Day Years Used Date Smoking Tobacco: Never Smokeless Tobacco: Never Alcohol Use Standard Drinks/Week Comments Never 0 (1 standard drink = 0.6 oz pur e alcohol) Area Deprivation Index Answer Date Derek rded National Score (1-100), lower number is lower ri sk Not on file 10/23/2020 State Score (1-10), lower number is lower risk N ot on file 10/23/2020 Data from: https://www.neighborhoodatlas.[email or web address]/. Last address used for calculation Not on file 10/23/2020 Sex and Gender Information Value Date Recorded Sex Assigned at Not on file Legal Sex Male 8:09 AM EST Gender Identity Not on file Sexual Orientation Not on file Last Filed Vital Signs Vital Sign Reading Time Taken Comments Blood Pressure 125/79 11/07/2020 2:44 PM EDT Pulse 79 11/07/2020 2:44 PM EDT Temperature 36.7 C (98.1 F) 11/07/2020 2:44 PM EDT Respiratory Rate 20 11/07/2020 2:44 PM EDT Oxygen Saturation 93% 11/07/2020 2:44 PM EDT Inhaled Oxygen Concentration - - Weight 104 kg (229 lb 4.5 oz) 10/31/2020 8:45 PM EDT Height 172.7 cm (5' 8 ) 10/31/2020 2:09 PM EDT Body Mass Index 34.86 10/31/2020 2:09 PM EDT Plan of Treatment Health Maintenance Due Date Last Done Comments Anxiety Screening 2010 Depression Screening 2010 Hepatitis C Screening 2010 DTaP,Tdap,Td Vaccine (1 - Tdap) 12/22/2011 Hepatitis B Vaccine (1 of 3 - 19+ 3-dose series) 12/21 Covid-19 Vaccine ( - season) 2024 Influenza Vaccine (Season Ended) 2025 06/15/20 08 HIV Screening Completed 06/10/2008 Procedures Procedure Name Priority Date/Time Associated Diagnosis Comments HIV 1/2 COMBO WITH REFLEX TO DIFFERENTIATION STAT 06/10/2008 12:25 PM EST from Last 3 Months or Most Recently Relevant to Health Maintenance Results * HIV AB 1&2 SCREEN (06/10/2008 12:25 PM EST) HIV 1 & 2 Ab (EIA) Non Reactive NR [facility] Comment: If results are indeterminate or otherwise inconsistent with an individual's clinical presentation or risk profile for HIV infection a repeat specimen is requested. A repeat specimen is also recommended for any individual identified positive for the first time. Blood specimen (specimen) BLOOD SPECIMEN / Unknown 06/10/2008 12:25 PM EST [facility] Final Result [facility] [address] [place] [address] from Last 3 Months or Most Recently Relevant to Health Maintenance Insurance BLUE CARD PPO OOS Care Teams Creative Writing English Professor Relationship Specialty Start Date End Date Suzette Umaña MD [address] [place] [address] PCP - General Family Medicine 11/07/20
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
== END 2025-01-21 14:05 | disposition home or self-care (01) ==
PROVIDERS: Emergency Provider Emergency Medicine; PCP Family Medicine
DX: L55.0 Sunburn of first degree (principal)
CPT/HCPCS: 99283